=== PATIENT | female | born 1965 | race Caucasian/White ===

== ENCOUNTER 2020-11-14 11:24 | Inpatient (IN) | payer OTHER ==
[2020-11-14] MEDS ORDERED: CLINDAMYCIN-D5W 600 MG/50 ML*** 600 MG/50 ML BAG IV STA (11:51)
[2020-11-14] MEDS ORDERED: MORPHINE SULFATE 4 MG INJ IV ONE (11:51)
[2020-11-14] MEDS ORDERED: Zofran 4 MG/2 ML VIAL IV ONE (11:51)
[2020-11-14 12:06] LABS: Absolute Neutrophil Ct (ANC) 8.09 (1.4-6.9); BASOPHIL % 0.4 % (0.0-0.4); Basophil (Absolute #) 0.04 (0-0.4); Eosinophil (Absolute #) 0 (0-0.5); Hematocrit 44.1 % (35-47); Hemoglobin 14.6 gm/dl (12.0-16.0); Lymphocyte (Absolute #) 1.41 (1.0-4.6); Lymphocytes % 13.6 % (24.0-44.0); Mean Cell Volume 86.1 fl (78-100); Mean Corpuscular Hemoglobin 28.5 pg (26-32); Mean Corpuscular Hgb Concent. 33.1 g/dl (32-36); Monocyte (Absolute #) 0.86 (0.0-1.3); Monocytes % 8.3 % (0.0-12.0); Neutrophil % 77.7 % (36.0-66.0); Platelet Count 292 K/mm3 (150-450); Red Blood Count 5.12 M/mm3 (4.1-5.4); Red Cell Distribution Width 13.4 % (11.5-14.0); White Blood Count 10.4 K/mm3 (4.0-10.5)
[2020-11-14] MEDS ORDERED: Zofran 4 MG/2 ML VIAL ONE (12:12)
[2020-11-14] MEDS ORDERED: MORPHINE SULFATE 4 MG INJ ONE ×2 (12:12→23:49)
[2020-11-14] MEDS ORDERED: CLINDAMYCIN-D5W 600 MG/50 ML*** 600 MG/50 ML BAG IV ONE (12:13)
--- NOTE | 2020-11-14 12:16 | ERPHSYRPT ---
- History of Present Illness Time Seen by Provider: 11/14/20 11:35 Source: patient Exam Limitations: no limitations Patient Subjective Stated Complaint: Pt has a large re-occuring cyst to her pubus region Triage Nursing Assessment: Pt drove self to the ER, tachycardic, rates pain as 10/10, pain to the pubus region, large red cyst with drainage, pulses normal, skin n/w/d Physician History: 55 years old female with history of diabetes mellitus, multiple abscesses, DVT on Eliquis, presented in the ER with chief complaint of right pubic area swelling gradually onset 2 weeks ago with progressive worsening swelling along the right pubic area to labia with associated sharp shooting pain with palpation and multiple heads with mild foul-smelling drainage noted yesterday. Subjective feeling of fever and chills. Patient had I&D done few months ago the same area. Timing/Duration: week(s) (2), gradual onset, worse Quality: burning, painful Severity: moderate Location: genitalia Possible Causes: no cause identified Associated Symptoms: swelling/mass/lumps, No fever Allergies/Adverse Reactions: escitalopram oxalate [From Lexapro] Allergy (Severe, Verified 11/14/20 11:55) Itching gabapentin Allergy (Severe, Verified 11/14/20 11:55) Vomiting adhesive Allergy (Intermediate, Verified 11/14/20 11:55) Blisters hydromorphone HCl [From Dilaudid] Allergy (Verified 11/14/20 11:55) bee stings Allergy (Severe, Uncoded 11/14/20 11:55) Swelling bee stings Home Medications: Promethazine HCl 25 mg [Phenergan 25 mg] 25 mg RC Q6HPRN PRN 08/29/15 [History] Apixaban [Eliquis] 5 mg PO BID 05/06/17 [History] Eletriptan HBr [Relpax] 40 mg PO DAILY PRN PRN 05/06/17 [History] Metformin HCl 500 mg [Glucophage 500 MG] 500 mg PO BIDWM 05/06/17 [History] Potassium Chloride 20 Meq [Klor-Con 20 MEQ] 20 meq PO DAILY 05/06/17 [History] Sumatriptan Succinate 25 mg [Imitrex 25 MG] 25 mg SQ DAILY PRN 05/06/17 [History] Atorvastatin Calcium [Lipitor 40Mg] 40 mg PO DAILY 11/14/20 [History] Bumetanide [Bumex] 2 mg PO BID 11/14/20 [History] Spironolactone 25 mg [Aldactone 25 MG] 25 mg PO DAILY 11/14/20 [History] Hx Tetanus, Diphtheria Vaccination/Date Given: No Hx Influenza Vaccination/Date Given: No Hx Pneumococcal Vaccination/Date Given: Yes Travel Risk - International Travel Have you traveled outside of the country in past 3 weeks: No - Coronavirus Screening Are you exhibiting any of the following symptoms?: No Close contact with a COVID-19 positive Pt in past 14-21 Days: No - Vaccine Status Have you recieved a Covid-19 vaccination: No - Review of Systems Constitutional: No Symptoms Ears, Nose, & Throat: No Symptoms Respiratory: No Symptoms Cardiac: No Symptoms Abdominal/Gastrointestinal: No Symptoms Genitourinary Symptoms: No Symptoms Skin: Cellulitis, Induration, Skin Lesions Neurological: No Symptoms Psychological: No Symptoms Endocrine: No Symptoms Hematologic/Lymphatic: No Symptoms - Past Medical History Pertinent Past Medical History: Yes Neurological History: Peripheral Neuropathy, Seizures ENT History: No Pertinent History Cardiac History: High Cholesterol, Hypertension Respiratory History: Asthma, Pneumonia, Pulmonary Embolism Endocrine Medical History: Diabetes Type II Musculoskeletal History: Arthritis, Fibromyalgia GI Medical History: Hernia History: No Pertinent History Psycho-Social History: Depression Female Reproductive Disorders: Other Other Medical History: . - Past Surgical History Past Surgical History: Yes Neuro Surgical History: No Pertinent History Cardiac: Cardiac Catheterization Respiratory: No Pertinent History Gastrointestinal: Cholecystectomy Genitourinary: No Pertinent History Musculoskeletal: Orthopedic Surgery Female Surgical History: Hysterectomy, Tubal Ligation Other Surgical History: heart cath 2010 was reported to be negative by pt. Filt er placed 2011 yr ago after PE, rhinoplasty and multiple left knee repairs, cyst removed from [facility]. - Social History Smoking Status: Never smoker Exposure to second hand smoke: No Drug Use: none Patient Lives Alone: No - Female History Hx Now: No - Nursing Vital Signs Nursing Vital Signs: Initial Vital Signs Pulse Rate 115 H 11/14/20 11:42 Blood Pressure 135/95 11/14/20 11:42 O2 Sat by Pulse Oximetry 94 L 11/14/20 11:42 Pain Scale Pain Intensity 10 - Physical Exam General Appearance: no apparent distress, alert Eye Exam: eyes nml inspection Ears, Nose, Throat Exam: pharynx normal Neck Exam: normal inspection, supple, full range of motion Respiratory Exam: lungs clear, airway intact Cardiovascular Exam: normal heart sounds, tachycardia Gastrointestinal/Abdomen Exam: soft, normal bowel sounds Pelvic Exam: No normal external exam (7 x 4 cm area of induration swelling right pubic labia majora. Warm tender to touch with fluctuant area in the middle.) Extremity Exam: normal inspection Neurologic Exam: alert, oriented x 3 Skin Exam: normal color SpO2 Interpretation: normal SpO2: 94 O2 Delivery: Room Air Ordered Tests: Active Orders 24 hr Category Date Time Status BLOOD CULTURE Stat Lab 11/14/20 12:00 Ordered CBC W DIFF Stat Lab 11/14/20 12:00 Completed CMP Stat Lab 11/14/20 12:00 Completed Lactic Acid Stat Lab 11/14/20 11:51 Completed Medication Summary Generic Name Dose Route Start Last Admin Trade Name Freq PRN Reason Stop Dose Admin Piperacillin Sod/Tazobactam 100 mls @ 200 mls/hr 11/14/20 13:11 Sod 3.375 gm/ Sodium Chloride IV 11/14/20 13:40 STAT ONE Vancomycin HCl 2 gm in 400 mls @ 133.333 mls/hr 11/14/20 13:11 Vancomycin 2 Gram/400 Ml Bag IV 11/14/20 16:10 STAT ONE Discontinued Medications Generic Name Dose Route Start Last Admin Trade Name Freq PRN Reason Stop Dose Admin Clindamycin HCl/Dextrose 600 mg in 50 mls @ 100 mls/hr 11/14/20 11:51 11/14/20 13:00 Clindamycin-D5w 600 Mg/50 Ml IV 11/14/20 12:20 Infused STAT STA Infusion Clindamycin HCl/Dextrose Confirm 11/14/20 12:13 Clindamycin-D5w 600 Mg/50 Ml Administered 11/14/20 12:14 Dose 600 mg in 50 mls @ ud IV .STK-MED ONE Insulin Human Regular 15 unit 11/14/20 12:54 Humulin R IV 11/14/20 12:55 STAT ONE Morphine Sulfate 4 mg 11/14/20 11:51 11/14/20 12:16 Morphine Sulfate 4 Mg Inj IV 11/14/20 11:52 4 mg STAT ONE Administration Morphine Sulfate Confirm 11/14/20 12:12 Morphine Sulfate 4 Mg Inj Administered 11/14/20 12:13 Dose 4 mg .ROUTE .STK-MED ONE Ondansetron HCl 4 mg 11/14/20 11:51 11/14/20 12:15 Zofran 4 Mg/2 Ml Vial IV 11/14/20 11:52 4 mg STAT ONE Administration Ondansetron HCl Confirm 11/14/20 12:12 Zofran 4 Mg/2 Ml Vial Administered 11/14/20 12:13 Dose 4 mg .ROUTE .STK-MED ONE Lab/Rad Data: Laboratory Result Diagrams 11/14/20 12:00 11/14/20 12:00 Laboratory Results 11/14/20 11/14/20 11/14/20 Range/Units 12:00 12:00 11:51 WBC 10.4 (4.0-10.5) K/mm3 RBC 5.12 (4.1-5.4) M/mm3 Hgb 14.6 (12.0-16.0) gm/dl Hct 44.1 (35-47) % MCV 86.1 (78-100) fl MCH 28.5 (26-32) pg MCHC 33.1 (32-36) g/dl RDW 13.4 (11.5-14.0) % Plt Count 292 (150-450) K/mm3 MPV 11.0 (7.5-11.0) fl Gran % 77.7 H (36.0-66.0) % Eos # (Auto) 0 (0-0.5) Absolute Lymphs (auto) 1.41 (1.0-4.6) Absolute Monos (auto) 0.86 (0.0-1.3) Lymphocytes % 13.6 L (24.0-44.0) % Monocytes % 8.3 (0.0-12.0) % Eosinophils % 0.0 (0.00-5.0) % Basophils % 0.4 (0.0-0.4) % Absolute Granulocytes 8.09 H (1.4-6.9) Basophils # 0.04 (0-0.4) Sodium 128 L (137-145) mmol/L Potassium 4.1 (3.5-5.1) mmol/L Chloride 86 L (98-107) mmol/L Carbon Dioxide 29 (22-30) mmol/L Anion Gap 17.5 H (5-15) MEQ/L BUN 10 (7-17) mg/dL Creatinine 0.82 (0.52-1.04) mg/dL Estimated GFR > 60.0 ML/MIN Glucose 614 H* (74-106) mg/dL Lactic Acid 3.4 H (0.4-2.0) Calcium 10.5 H (8.4-10.2) mg/dL Total Bilirubin 0.70 (0.2-1.3) mg/dL AST 27 (14-36) U/L ALT 30 (0-35) U/L Alkaline Phosphatase 208 H (38-126) U/L Serum Total Protein 7.8 (6.3-8.2) g/dL Albumin 4.4 (3.5-5.0) g/dL - Progress Progress: unchanged, re-examined Progress Note: 11/14/20 13:22 She has a right pubic area abscess, given symptomatic treatment for pain and a dose of antibiotics. Work-up showed normal white count, blood glucose in 600, given IV insulin. Discussed with Dr. Ronak Toro, recommended n.p.o., admission and I&D would be done later either today or tomorrow morning. Discussed with Dr. Powers and patient is admitted. Discussed with : Bubba Yang Will see patient in: hospital (observation) Counseled pt/family regarding: lab results, diagnosis, rad results - Departure Departure Disposition: Observation Clinical Impression: Abscess of pubic region, Hyperglycemia Condition: Stable Critical Care Time: No Referrals: DILEEP SIFUENTES, [employer] TRAFF[employer] COORDINATOR [Primary Care Provider] -
[2020-11-14 12:26] LABS: ALBUMIN 4.4 g/dL (3.5-5.0); ALKALINE PHOSPHATASE 208 U/L (38-126); ANION GAP 17.5 MEQ/L (5-15); BLOOD UREA NITROGEN 10 mg/dL (7-17); CHLORIDE 86 mmol/L (98-107); Calcium 10.5 mg/dL (8.4-10.2); Carbon Dioxide 29 mmol/L (22-30); Creatinine 1 0.82 mg/dL (0.52-1.04); EST GLOMERULAR FILTRATION RATE > 60.0 ML/MIN; Potassium 4.1 mmol/L (3.5-5.1); SGOT/AST 27 U/L (14-36); SGPT/ALT 30 U/L (0-35); SODIUM 128 mmol/L (137-145); Total Protein 7.8 g/dL (6.3-8.2)
[2020-11-14 12:28] LABS: Glucose 614 mg/dL (74-106)
[2020-11-14] MEDS ORDERED: HUMULIN R IV ONE (12:54)
[2020-11-14] MEDS ORDERED: VANCOMYCIN 2 GRAM/400 ML BAG 2 GM/400 ML PIGGYBACK IV ONE ×2 (13:11→14:15)
[2020-11-14] MEDS ORDERED: Zosyn 3.375 GM Vial 3.375 GM in Sodium Chloride 100ML MINI-BAG PLUS 100 ML IV ONE (13:11)
[2020-11-14] MEDS ORDERED: Sodium Chloride 100ML MINI-BAG PLUS 100 ML IV ONE (13:41)
[2020-11-14] MEDS ORDERED: Zosyn 3.375 GM Vial IV ONE (13:41)
[2020-11-14] MEDS ORDERED: HUMULIN R 100 UNIT in Sodium Chloride 0.9% 100 ML BAG 100 ML IV PRN (14:02)
[2020-11-14 14:23] LABS: INFLUENZA A NEGATIVE (NEGATIVE); INFLUENZA B NEGATIVE (NEGATIVE); RESPIRATORY SYNCTIAL VIRUS NEGATIVE (Negative)
[2020-11-14] MEDS ORDERED: TORAdol 30 mg Injection IV ONE (14:25)
[2020-11-14] MEDS ORDERED: TORAdol 30 mg Injection ONE (14:28)
[2020-11-14] MEDS ORDERED: HUMALOG SQ PRN ×2 (17:00→17:02)
[2020-11-14] MEDS ORDERED: VANCOCIN 1 GM VIAL*** 1 GM in Sodium Chloride 0.9% 250 ML 250 ML IV SCH (17:02)
[2020-11-14] MEDS ORDERED: DUONEB 0.5-3 MG/3 ml Neb IH PRN (17:02)
[2020-11-14] MEDS ORDERED: SUMATRIPTAN SUCCINATE 25 MG SQ PRN (17:30)
[2020-11-14] MEDS ORDERED: NON-FORMULARY ITEM (Cholecalciferol (Vitamin D3) [Vitamin D3] 50,000 UNIT) PO SCH (17:30)
[2020-11-14] MEDS ORDERED: PHENERGAN 25 MG PO PRN (17:30)
[2020-11-14] MEDS ORDERED: ELETRIPTAN HBR 40 MG PO PRN (17:30)
[2020-11-14 17:32] LABS: ANION GAP 15.7 MEQ/L (5-15); BLOOD UREA NITROGEN 10 mg/dL (7-17); CHLORIDE 90 mmol/L (98-107); Calcium 9.9 mg/dL (8.4-10.2); Carbon Dioxide 32 mmol/L (22-30); Creatinine 1 0.86 mg/dL (0.52-1.04); EST GLOMERULAR FILTRATION RATE > 60.0 ML/MIN; Glucose 294 mg/dL (74-106); Potassium 3.9 mmol/L (3.5-5.1); SODIUM 133 mmol/L (137-145)
[2020-11-14] MEDS: MORPHINE SULFATE 2 MG INJ IV PRN ×2 (17:40→21:29)
[2020-11-14] MEDS: Zosyn 3.375 GM Vial 3.375 GM in Sodium Chloride 100ML MINI-BAG PLUS 100 ML IV SCH ×2 (17:40→23:18)
[2020-11-14] MEDS: Sodium Chloride 0.9% W/ 20 mEq KCl/LITER 1,000 ML IV SCH (17:40)
[2020-11-14] MEDS: PROTONIX 40 MG IV IV SCH (17:42)
[2020-11-14] MEDS ORDERED: MEDICATION INTERVENTION PO SCH (17:45)
[2020-11-14] MEDS: Aldactone 25 MG PO SCH (18:21)
[2020-11-14] MEDS: Klor Con 10 MEQ PO SCH (18:22)
[2020-11-14] MEDS: BUMEX 1 MG PO SCH (18:22)
[2020-11-14] MEDS: ZOCOR 20MG PO SCH (18:22)
[2020-11-14] MEDS: Cozaar 50 MG PO SCH (18:22)
[2020-11-14] MEDS: Glucophage 500 MG PO SCH (18:22)
[2020-11-14] MEDS: VANCOMYCIN 1 GRAM/200 ML BAG 1 GM/200 ML PIGGYBACK IV SCH (21:09)
[2020-11-14] MEDS: HUMALOG SQ PRN (21:45)
[2020-11-14] MEDS ORDERED: NON-FORMULARY ITEM (Bumetanide [Bumex] 2 MG) PO SCH (22:00)
[2020-11-14] MEDS ORDERED: MORPHINE SULFATE 2 MG INJ IV PRN (23:43)
[2020-11-14] MEDS: MORPHINE SULFATE 4 MG INJ IV PRN (23:55)
[2020-11-15] MEDS: OXYCODONE-ACETAMINOPHEN 10-325 PO PRN ×2 (02:43→20:16)
[2020-11-15] MEDS: Sodium Chloride 0.9% W/ 20 mEq KCl/LITER 1,000 ML IV SCH ×3 (02:43→18:01)
[2020-11-15 05:54] LABS: Absolute Neutrophil Ct (ANC) 7.36 (1.4-6.9); BASOPHIL % 0.4 % (0.0-0.4); Basophil (Absolute #) 0.04 (0-0.4); Eosinophil % 0.2 % (0.00-5.0); Eosinophil (Absolute #) 0.02 (0-0.5); Hematocrit 38.3 % (35-47); Lymphocyte (Absolute #) 1.74 (1.0-4.6); Mean Cell Volume 90.3 fl (78-100); Mean Corpuscular Hemoglobin 28.3 pg (26-32); Mean Corpuscular Hgb Concent. 31.3 g/dl (32-36); Mean Platelet Volume 11.3 fl (7.5-11.0); Monocyte (Absolute #) 1.06 (0.0-1.3); Monocytes % 10.4 % (0.0-12.0); Platelet Count 250 K/mm3 (150-450); Red Blood Count 4.24 M/mm3 (4.1-5.4); Red Cell Distribution Width 13.5 % (11.5-14.0); White Blood Count 10.2 K/mm3 (4.0-10.5)
[2020-11-15 06:19] LABS: ALBUMIN 3.4 g/dL (3.5-5.0); ALKALINE PHOSPHATASE 125 U/L (38-126); BLOOD UREA NITROGEN 11 mg/dL (7-17); CHLORIDE 95 mmol/L (98-107); Calcium 8.6 mg/dL (8.4-10.2); Carbon Dioxide 32 mmol/L (22-30); Creatinine 1 0.83 mg/dL (0.52-1.04); EST GLOMERULAR FILTRATION RATE > 60.0 ML/MIN; Glucose 409 mg/dL (74-106); Potassium 4.1 mmol/L (3.5-5.1); SGOT/AST 27 U/L (14-36); SGPT/ALT 24 U/L (0-35); SODIUM 133 mmol/L (137-145); Total Protein 6.2 g/dL (6.3-8.2)
[2020-11-15] MEDS: Zosyn 3.375 GM Vial 3.375 GM in Sodium Chloride 100ML MINI-BAG PLUS 100 ML IV SCH ×3 (06:42→18:29)
[2020-11-15] MEDS: MORPHINE SULFATE 4 MG INJ IV PRN ×3 (07:13→23:52)
[2020-11-15] MEDS: Glucophage 500 MG PO SCH ×2 (07:14→17:26)
[2020-11-15] MEDS: HUMALOG SQ PRN ×7 (07:29→21:50)
[2020-11-15] MEDS ORDERED: Lactated Ringers 1,000 ML IV ONE (07:33)
[2020-11-15] MEDS ORDERED: Lactated Ringers 1,000 ML IV SCH (08:00)
[2020-11-15] MEDS: Aldactone 25 MG PO SCH (08:55)
[2020-11-15] MEDS: Cozaar 50 MG PO SCH (08:55)
[2020-11-15] MEDS: BUMEX 1 MG PO SCH ×2 (08:55→17:26)
[2020-11-15] MEDS: PROTONIX 40 MG IV IV SCH (09:06)
[2020-11-15] MEDS: ZOCOR 20MG PO SCH (09:06)
[2020-11-15] MEDS: Klor Con 10 MEQ PO SCH (09:07)
[2020-11-15] MEDS: VANCOMYCIN 1 GRAM/200 ML BAG 1 GM/200 ML PIGGYBACK IV SCH ×2 (09:10→21:39)
[2020-11-15] MEDS ORDERED: NON-FORMULARY ITEM (Losartan Potassium [Losartan Potassium] 25 MG) PO SCH (10:00)
[2020-11-15] MEDS ORDERED: LIPITOR 40MG PO SCH (10:00)
[2020-11-15] MEDS ORDERED: VITAMIN D2 PO SCH (10:00)
[2020-11-15] MEDS ORDERED: NON-FORMULARY ITEM (Potassium Chloride 20 Meq [Klor-Con 20 Meq] 20 MEQ) PO SCH (10:00)
--- NOTE | 2020-11-15 15:06 | PCM.HP ---
History of Present Illness - Chief Complaint Chief Complaint: ABCESS R LABIA, RECURRENT History of Present Illness: is a 55 year old female. Medications & Allergies Home Medications: Home Medication List Promethazine HCl 25 mg [Phenergan 25 mg] 25 mg RC Q6HPRN PRN 08/29/15 [History Confirmed 11/14/20] Apixaban [Eliquis] 5 mg PO BID 05/06/17 [History Confirmed 11/14/20] Eletriptan HBr [Relpax] 40 mg PO DAILY PRN PRN 05/06/17 [History Confirmed 11/14/20] Metformin HCl 500 mg [Glucophage 500 MG] 500 mg PO BIDWM 05/06/17 [History Confirmed 11/14/20] Potassium Chloride 20 Meq [Klor-Con 20 MEQ] 20 meq PO DAILY 05/06/17 [History Confirmed 11/14/20] Sumatriptan Succinate 25 mg [Imitrex 25 MG] 25 mg SQ DAILY PRN 05/06/17 [History Confirmed 11/14/20] Atorvastatin Calcium [Lipitor 40Mg] 40 mg PO DAILY 11/14/20 [History Confirmed 11/14/20] Bumetanide [Bumex] 2 mg PO BID 11/14/20 [History Confirmed 11/14/20] Cholecalciferol (Vitamin D3) [Vitamin D3] 50,000 unit PO WEEKLY 11/14/20 [History Confirmed 11/14/20] Losartan Potassium 25 mg PO DAILY 11/14/20 [History Confirmed 11/14/20] Spironolactone 25 mg [Aldactone 25 MG] 25 mg PO DAILY 11/14/20 [History Confirmed 11/14/20] Allergies/Adverse Reactions: Allergies Allergy/AdvReac Type Severity Reaction Status Date / Time escitalopram oxalate Allergy Severe Itching Verified 11/14/20 11:55 [From Lexapro] gabapentin Allergy Severe Vomiting Verified 11/14/20 11:55 adhesive Allergy Intermediate Blisters Verified 11/14/20 11:55 lisinopril Allergy Intermediate Skin Verified 11/14/20 17:08 Irritation hydromorphone HCl Allergy Verified 11/14/20 11:55 [From Dilaudid] bee stings Allergy Severe Swelling Uncoded 11/14/20 11:55 - Past Medical History Past Medical History: Yes Neurological History: Migraines, Other ENT History: No Pertinent History Cardiac History: High Cholesterol, Hypertension Respiratory History: COPD, Pulmonary Embolism Endocrine Medical History: Diabetes Type II Musculoskelatal History: Arthritis GI Medical History: Gallbladder Disease History: No Pertinent History Pyscho-Social History: Anxiety, Depression Reproductive Disorders: Abnormal Uterine Bleeding, Fibroids Comment: . - Female History Are you now?: No - Past Surgical History Past Surgical History: Yes Neuro Surgical History: No Pertinent History Cardiac History: Cardiac Catheterization Respiratory Surgery: No Pertinent History GI Surgical History: Cholecystectomy Genitourinary Surgical Hx: No Pertinent History Musculskeletal Surgical Hx: No Pertinent History Female Surgical History: Hysterectomy Other Surgical History: heart cath 2010 was reported to be negative by pt. 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 - Social History Smoking Status: Never smoker Exposure to second hand smoke: No Alcohol: None Drug Use: none - Physical Exam Vital Signs: Vital Signs - 24 hr Temp Pulse Resp BP Pulse Ox 11/15/20 14:08 96.0 F 94 H 20 95/66 99 11/15/20 12:00 96.0 F 94 H 20 95/66 99 11/15/20 08:00 98.1 F 101 H 23 88/63 97 11/15/20 04:00 97.0 F 97 H 15 98/63 98 11/15/20 01:29 98.5 F 100 H 15 101/70 98 11/15/20 00:44 98.5 F 100 H 15 101/70 98 11/14/20 23:36 98.5 F 100 H 15 101/70 98 11/14/20 20:58 96 11/14/20 20:00 98.4 F 103 H 20 118/74 93 L 11/14/20 17:31 96.4 F 100 H 19 122/63 93 L 11/14/20 16:13 89 107/88 98 Results - Labs Lab/Micro Results: Lab Results-Last 24 Hours 11/14/20 11/14/20 11/14/20 Range/Units 12:04 15:01 17:16 WBC (4.0-10.5) K/mm3 RBC (4.1-5.4) M/mm3 Hgb (12.0-16.0) gm/dl Hct (35-47) % MCV (78-100) fl MCH (26-32) pg MCHC (32-36) g/dl RDW (11.5-14.0) % Plt Count (150-450) K/mm3 MPV (7.5-11.0) fl Gran % (36.0-66.0) % Eos # (Auto) (0-0.5) Absolute Lymphs (auto) (1.0-4.6) Absolute Monos (auto) (0.0-1.3) Lymphocytes % (24.0-44.0) % Monocytes % (0.0-12.0) % Eosinophils % (0.00-5.0) % Basophils % (0.0-0.4) % Absolute Granulocytes (1.4-6.9) Basophils # (0-0.4) Sodium (137-145) mmol/L Potassium (3.5-5.1) mmol/L Chloride (98-107) mmol/L Carbon Dioxide (22-30) mmol/L Anion Gap (5-15) MEQ/L BUN (7-17) mg/dL Creatinine (0.52-1.04) mg/dL Estimated GFR ML/MIN Glucose (74-106) mg/dL POC Glucometer 305 H (74 to 106) mg/dL Hemoglobin A1c > 14.00 H (4.5-6.0) % Lactic Acid 3.3 H (0.4-2.0) Calcium (8.4-10.2) mg/dL Total Bilirubin (0.2-1.3) mg/dL AST (14-36) U/L ALT (0-35) U/L Alkaline Phosphatase (38-126) U/L Serum Total Protein (6.3-8.2) g/dL Albumin (3.5-5.0) g/dL 11/14/20 11/14/20 11/15/20 Range/Units 17:20 21:35 04:20 WBC 10.2 (4.0-10.5) K/mm3 RBC 4.24 (4.1-5.4) M/mm3 Hgb 12.0 (12.0-16.0) gm/dl Hct 38.3 (35-47) % MCV 90.3 (78-100) fl MCH 28.3 (26-32) pg MCHC 31.3 L (32-36) g/dl RDW 13.5 (11.5-14.0) % Plt Count 250 (150-450) K/mm3 MPV 11.3 H (7.5-11.0) fl Gran % 72.0 H (36.0-66.0) % Eos # (Auto) 0.02 (0-0.5) Absolute Lymphs (auto) 1.74 (1.0-4.6) Absolute Monos (auto) 1.06 (0.0-1.3) Lymphocytes % 17.0 L (24.0-44.0) % Monocytes % 10.4 (0.0-12.0) % Eosinophils % 0.2 (0.00-5.0) % Basophils % 0.4 (0.0-0.4) % Absolute Granulocytes 7.36 H (1.4-6.9) Basophils # 0.04 (0-0.4) Sodium 133 L (137-145) mmol/L Potassium 3.9 (3.5-5.1) mmol/L Chloride 90 L (98-107) mmol/L Carbon Dioxide 32 H (22-30) mmol/L Anion Gap 15.7 H (5-15) MEQ/L BUN 10 (7-17) mg/dL Creatinine 0.86 (0.52-1.04) mg/dL Estimated GFR > 60.0 ML/MIN Glucose 294 H (74-106) mg/dL POC Glucometer 464 H (74 to 106) mg/dL Hemoglobin A1c (4.5-6.0) % Lactic Acid (0.4-2.0) Calcium 9.9 (8.4-10.2) mg/dL Total Bilirubin (0.2-1.3) mg/dL AST (14-36) U/L ALT (0-35) U/L Alkaline Phosphatase (38-126) U/L Serum Total Protein (6.3-8.2) g/dL Albumin (3.5-5.0) g/dL 11/15/20 11/15/20 11/15/20 Range/Units 04:20 05:20 07:26 WBC (4.0-10.5) K/mm3 RBC (4.1-5.4) M/mm3 Hgb (12.0-16.0) gm/dl Hct (35-47) % MCV (78-100) fl MCH (26-32) pg MCHC (32-36) g/dl RDW (11.5-14.0) % Plt Count (150-450) K/mm3 MPV (7.5-11.0) fl Gran % (36.0-66.0) % Eos # (Auto) (0-0.5) Absolute Lymphs (auto) (1.0-4.6) Absolute Monos (auto) (0.0-1.3) Lymphocytes % (24.0-44.0) % Monocytes % (0.0-12.0) % Eosinophils % (0.00-5.0) % Basophils % (0.0-0.4) % Absolute Granulocytes (1.4-6.9) Basophils # (0-0.4) Sodium 133 L (137-145) mmol/L Potassium 4.1 (3.5-5.1) mmol/L Chloride 95 L (98-107) mmol/L Carbon Dioxide 32 H (22-30) mmol/L Anion Gap 11.0 (5-15) MEQ/L BUN 11 (7-17) mg/dL Creatinine 0.83 (0.52-1.04) mg/dL Estimated GFR > 60.0 ML/MIN Glucose 409 H (74-106) mg/dL POC Glucometer 432 H (74 to 106) mg/dL Hemoglobin A1c (4.5-6.0) % Lactic Acid 1.2 (0.4-2.0) Calcium 8.6 (8.4-10.2) mg/dL Total Bilirubin 0.50 (0.2-1.3) mg/dL AST 27 (14-36) U/L ALT 24 (0-35) U/L Alkaline Phosphatase 125 (38-126) U/L Serum Total Protein 6.2 L (6.3-8.2) g/dL Albumin 3.4 L (3.5-5.0) g/dL 11/15/20 11/15/20 11/15/20 Range/Units 08:02 10:18 11:09 WBC (4.0-10.5) K/mm3 RBC (4.1-5.4) M/mm3 Hgb (12.0-16.0) gm/dl Hct (35-47) % MCV (78-100) fl MCH (26-32) pg MCHC (32-36) g/dl RDW (11.5-14.0) % Plt Count (150-450) K/mm3 MPV (7.5-11.0) fl Gran % (36.0-66.0) % Eos # (Auto) (0-0.5) Absolute Lymphs (auto) (1.0-4.6) Absolute Monos (auto) (0.0-1.3) Lymphocytes % (24.0-44.0) % Monocytes % (0.0-12.0) % Eosinophils % (0.00-5.0) % Basophils % (0.0-0.4) % Absolute Granulocytes (1.4-6.9) Basophils # (0-0.4) Sodium (137-145) mmol/L Potassium (3.5-5.1) mmol/L Chloride (98-107) mmol/L Carbon Dioxide (22-30) mmol/L Anion Gap (5-15) MEQ/L BUN (7-17) mg/dL Creatinine (0.52-1.04) mg/dL Estimated GFR ML/MIN Glucose (74-106) mg/dL POC Glucometer 414 H 393 H 341 H (74 to 106) mg/dL Hemoglobin A1c (4.5-6.0) % Lactic Acid (0.4-2.0) Calcium (8.4-10.2) mg/dL Total Bilirubin (0.2-1.3) mg/dL AST (14-36) U/L ALT (0-35) U/L Alkaline Phosphatase (38-126) U/L Serum Total Protein (6.3-8.2) g/dL Albumin (3.5-5.0) g/dL 11/15/20 Range/Units 13:05 WBC (4.0-10.5) K/mm3 RBC (4.1-5.4) M/mm3 Hgb (12.0-16.0) gm/dl Hct (35-47) % MCV (78-100) fl MCH (26-32) pg MCHC (32-36) g/dl RDW (11.5-14.0) % Plt Count (150-450) K/mm3 MPV (7.5-11.0) fl Gran % (36.0-66.0) % Eos # (Auto) (0-0.5) Absolute Lymphs (auto) (1.0-4.6) Absolute Monos (auto) (0.0-1.3) Lymphocytes % (24.0-44.0) % Monocytes % (0.0-12.0) % Eosinophils % (0.00-5.0) % Basophils % (0.0-0.4) % Absolute Granulocytes (1.4-6.9) Basophils # (0-0.4) Sodium (137-145) mmol/L Potassium (3.5-5.1) mmol/L Chloride (98-107) mmol/L Carbon Dioxide (22-30) mmol/L Anion Gap (5-15) MEQ/L BUN (7-17) mg/dL Creatinine (0.52-1.04) mg/dL Estimated GFR ML/MIN Glucose (74-106) mg/dL POC Glucometer 278 H (74 to 106) mg/dL Hemoglobin A1c (4.5-6.0) % Lactic Acid (0.4-2.0) Calcium (8.4-10.2) mg/dL Total Bilirubin (0.2-1.3) mg/dL AST (14-36) U/L ALT (0-35) U/L Alkaline Phosphatase (38-126) U/L Serum Total Protein (6.3-8.2) g/dL Albumin (3.5-5.0) g/dL Accuchecks Date 11/15/20 Date 11/15/20 Time 11:15 Time 10:19 - Other Procedures and Tests Respiratory Therapy 11/14/20 17:02 Oxygen Nasal Cannula 2 lpm
[2020-11-15] MEDS ORDERED: TORAdol 30 mg Injection ONE (16:10)
[2020-11-15] MEDS ORDERED: Zemuron 100 MG/10 ML ONE (16:10)
[2020-11-15] MEDS ORDERED: SUBLIMAZE 100 MCG/2 ML ONE ×2 (16:10→17:49)
[2020-11-15] MEDS ORDERED: Decadron 4 MG INJ ONE (16:10)
[2020-11-15] MEDS ORDERED: Zofran 4 MG/2 ML VIAL ONE (16:10)
[2020-11-15] MEDS ORDERED: DIPRIVAN 200 MG/20 ML IV ONE (16:10)
[2020-11-15] MEDS ORDERED: BRIDION 200MG/2ML IV ONE (16:10)
[2020-11-15] MEDS ORDERED: Xylocaine-Mpf 2% 5 Ml Vial ONE (16:10)
[2020-11-15] MEDS ORDERED: PHENYLEPHRINE HCL ONE (16:30)
[2020-11-15] MEDS ORDERED: MORPHINE SULFATE 10 MG/ML ONE (17:36)
[2020-11-15] MEDS: Sodium Chloride 0.9% 1000 ML 1,000 ML IV SCH (18:28)
[2020-11-15] MEDS: BENADRYL 25 MG CAPSULE PO PRN (23:52)
[2020-11-16] MEDS: Zosyn 3.375 GM Vial 3.375 GM in Sodium Chloride 100ML MINI-BAG PLUS 100 ML IV SCH ×4 (00:15→19:01)
[2020-11-16] MEDS: HUMALOG SQ PRN ×6 (00:18→22:40)
[2020-11-16] MEDS: MORPHINE SULFATE 4 MG INJ IV PRN ×4 (04:02→20:07)
[2020-11-16] MEDS: BENADRYL 25 MG CAPSULE PO PRN (04:18)
[2020-11-16] MEDS: Glucophage 500 MG PO SCH ×2 (08:09→18:30)
[2020-11-16] MEDS ORDERED: TROUGH DRUG LEVELS IJ ONE (09:30)
[2020-11-16] MEDS: ZOCOR 20MG PO SCH (10:43)
[2020-11-16] MEDS: PROTONIX 40 MG IV IV SCH (10:43)
[2020-11-16] MEDS: BUMEX 1 MG PO SCH ×2 (10:44→18:30)
[2020-11-16] MEDS: Aldactone 25 MG PO SCH (10:45)
[2020-11-16] MEDS: ELIQUIS 2.5 MG TABLET PO SCH ×2 (10:45→21:53)
[2020-11-16] MEDS: Klor Con 10 MEQ PO SCH (10:55)
[2020-11-16] MEDS: Cozaar 50 MG PO SCH (10:55)
[2020-11-16] MEDS: VANCOMYCIN 1 GRAM/200 ML BAG 1 GM/200 ML PIGGYBACK IV SCH ×2 (11:04→21:53)
[2020-11-16] MEDS: NORCO 7.5/325 MG TAB PO PRN ×2 (12:14→18:35)
[2020-11-16] MEDS: Sodium Chloride 0.9% 1000 ML 1,000 ML IV SCH (19:53)
[2020-11-17] MEDS: Zosyn 3.375 GM Vial 3.375 GM in Sodium Chloride 100ML MINI-BAG PLUS 100 ML IV SCH ×3 (00:12→13:15)
[2020-11-17] MEDS: NORCO 7.5/325 MG TAB PO PRN ×3 (00:18→17:21)
[2020-11-17] MEDS: MORPHINE SULFATE 4 MG INJ IV PRN ×3 (04:03→19:30)
[2020-11-17] MEDS: Zofran 4 MG/2 ML VIAL IV PRN (04:04)
[2020-11-17] MEDS ORDERED: Zosyn 3.375 GM Vial IV ONE (06:32)
[2020-11-17] MEDS ORDERED: Sodium Chloride 100ML MINI-BAG PLUS 100 ML IV ONE (06:33)
[2020-11-17 06:49] LABS: Hematocrit 39.3 % (35-47); Hemoglobin 12.2 gm/dl (12.0-16.0); Mean Cell Volume 91.6 fl (78-100); Mean Corpuscular Hemoglobin 28.4 pg (26-32); Mean Platelet Volume 10.9 fl (7.5-11.0); Platelet Count 253 K/mm3 (150-450); Red Blood Count 4.29 M/mm3 (4.1-5.4); Red Cell Distribution Width 13.7 % (11.5-14.0); White Blood Count 7.2 K/mm3 (4.0-10.5)
[2020-11-17 06:53] LABS: ANION GAP 9.1 MEQ/L (5-15); BLOOD UREA NITROGEN 12 mg/dL (7-17); CHLORIDE 93 mmol/L (98-107); Calcium 8.4 mg/dL (8.4-10.2); Carbon Dioxide 36 mmol/L (22-30); Creatinine 1 0.74 mg/dL (0.52-1.04); EST GLOMERULAR FILTRATION RATE > 60.0 ML/MIN; Glucose 292 mg/dL (74-106); Potassium 3.4 mmol/L (3.5-5.1); SODIUM 135 mmol/L (137-145)
[2020-11-17] MEDS: Glucophage 500 MG PO SCH ×2 (08:30→17:21)
[2020-11-17] MEDS: HUMALOG SQ PRN ×4 (08:30→21:25)
[2020-11-17] MEDS: VANCOMYCIN 1 GRAM/200 ML BAG 1 GM/200 ML PIGGYBACK IV SCH ×2 (10:59→21:26)
[2020-11-17] MEDS: PROTONIX 40 MG IV IV SCH (10:59)
[2020-11-17] MEDS: ELIQUIS 2.5 MG TABLET PO SCH ×2 (10:59→21:26)
[2020-11-17] MEDS: ZOCOR 20MG PO SCH (10:59)
[2020-11-17] MEDS: BUMEX 1 MG PO SCH ×2 (10:59→17:21)
[2020-11-17] MEDS: Aldactone 25 MG PO SCH (11:00)
[2020-11-17] MEDS: Klor Con 10 MEQ PO SCH (11:00)
[2020-11-17] MEDS: Cozaar 50 MG PO SCH (11:01)
[2020-11-17] MEDS: Sodium Chloride 0.9% 1000 ML 1,000 ML IV SCH ×3 (20:13→20:16)
[2020-11-18] MEDS: MORPHINE SULFATE 4 MG INJ IV PRN ×2 (04:59→21:53)
[2020-11-18 05:56] LABS: ANION GAP 9.1 MEQ/L (5-15); BLOOD UREA NITROGEN 10 mg/dL (7-17); CHLORIDE 89 mmol/L (98-107); Calcium 8.5 mg/dL (8.4-10.2); Carbon Dioxide 39 mmol/L (22-30); Creatinine 1 0.77 mg/dL (0.52-1.04); EST GLOMERULAR FILTRATION RATE > 60.0 ML/MIN; Glucose 299 mg/dL (74-106); Potassium 3.1 mmol/L (3.5-5.1); SODIUM 134 mmol/L (137-145)
[2020-11-18 06:00] LABS: Hematocrit 40.2 % (35-47); Hemoglobin 12.6 gm/dl (12.0-16.0); Mean Cell Volume 90.3 fl (78-100); Mean Corpuscular Hemoglobin 28.3 pg (26-32); Mean Corpuscular Hgb Concent. 31.3 g/dl (32-36); Mean Platelet Volume 10.9 fl (7.5-11.0); Platelet Count 274 K/mm3 (150-450); Red Blood Count 4.45 M/mm3 (4.1-5.4); Red Cell Distribution Width 13.6 % (11.5-14.0); White Blood Count 5.6 K/mm3 (4.0-10.5)
[2020-11-18] MEDS: NORCO 7.5/325 MG TAB PO PRN ×2 (08:23→19:37)
[2020-11-18] MEDS: Glucophage 500 MG PO SCH ×2 (08:23→19:39)
[2020-11-18] MEDS: HUMALOG SQ PRN ×4 (08:23→21:51)
--- NOTE | 2020-11-18 08:39 | CONS ---
CONSULT DATE: 11/15/2020 REASON FOR CONSULT: Right groin abscess. HISTORY: The patient is a 55 year-old female well known to me, uncontrolled diabetic, history of multiple I&D's, has seen endocrinology and has changed her diabetic management. She is not on insulin and they are having some difficulty with medications and symptoms but regardless of that had one week of worsening pain to the right groin. She also endures a spot at the anus that has been bothering her for similar time. She presented to the emergency department tachycardic with hyperglycemia and was admitted and started on insulin drip, antibiotics. The pain is similar. She does have some drainage from the wound but there is continued fluctuance. REVIEW OF SYSTEMS: Twelve point review of systems by chart review is negative. PAST MEDICAL HISTORY: Peripheral neuropathy, hyperlipidemia, hypertension, asthma, pulmonary embolism with coagulopathy on anticoagulation, diabetes type II, arthritis, fibromyalgia. PAST SURGICAL HISTORY: Hysterectomy, tubal ligation. Multiple incision and drainage. Heart cath in 2010. Inferior vena cava filter 2010. Rhinoplasty. Left knee surgery. PHYSICAL EXAMINATION: Afebrile. Vitals normal. No acute distress. CHEST: Nonlabored respirations. HEART: Regular rate and rhythm. ABDOMEN: Obese, nondistended, soft, nontender to palpation. The right groin just lateral to the labia there is a fluctuance extending approximately above the groin crease, maybe an 8 cm area. There is some active drainage. However there is gross fluctuance. RECTAL: There is perianal abscesses about 1 to 2 cm each with some induration and fluctuance. EXTREMITIES: No peripheral edema. NEURO: [place]son Coma Scale (GCS) 15. SKIN: Warm and dry. LAB DATA AND TESTS: CBC, BMP reviewed. Hyperglycemia with glucose over 400. Elevated anion gap on admission. ASSESSMENT AND PLAN: A 55 year-old female poorly controlled diabetic with right groin abscess and perianal abscesses going to the operating room for incision and drainage. Medicine is managing her diabetes. Plan is operative incision and drainage and includes supportive care.
[2020-11-18] MEDS: Zofran 4 MG/2 ML VIAL IV PRN (08:52)
--- NOTE | 2020-11-18 08:56 | OP ---
SURGERY DATE/TIME: 11/15/2020 1608 PREOPERATIVE DIAGNOSIS: Right groin and perianal abscesses. POSTOPERATIVE DIAGNOSIS: Right groin and perianal abscesses. PROCEDURES: 1) Incision and drainage of right groin mons pubis abscesses measuring 7 x 5 x 2 cm and 3 x 1 x 1 cm and 1 x 1 x 1 cm. 2) Incision of perianal abscesses measuring 1 x 1 x 1 cm. SURGEON: Dl Toro M.D. ANESTHESIA: General. ESTIMATED BLOOD LOSS: 25. PATIENT CONDITION: Stable. COMPLICATIONS: None. SPECIMENS: Swab for culture of right groin abscesses. HISTORY: The patient is a 55 year-old female poorly controlled diabetic presents with one week history of right groin pain and hyperglycemia, admitted and started on insulin drip, antibiotics and consented for surgery. Discussion with patient risk of infection, bleeding, wound complications, difficulty healing wounds and she elected to proceed. FINDINGS: Abscesses. DESCRIPTION OF PROCEDURE: General anesthesia was induced. She was placed in lithotomy position, routinely prepped and draped. Time out was performed. She was on scheduled antibiotics on the floor. The right groin above the groin crease on the mons pubis there is a 7 x 5 x 2 cm area inferiorly that has an opening. This was opened and the abscess cavity digitized. The cavity is 7 cm craniocaudal, 5 cm wide and 2 cm deep. A swab was taken for culture. This did not communicate with second and third area which are superior. The superior area is 3 cm long by 1 cm wide by 1 cm deep, this was opened. There is also a 1 x 1 x 1 cm area between the two that was opened. All the cavities were curetted out, irrigated. There was good hemostasis. A Kadie drain was placed in the larger abscess cavity using a counter incision. The anus is then examined. External exam shows just at the 5:00 left posterior position there is an opening with about a 1 cm fluctuance. This was explored with hemostat. It was about 1 x 1 x 1 cm wide. This was opened up to be 1 cm wide. There is no fistula. Packing was applied to the right groin wound. Clean dressings applied. All counts were correct. The patient tolerated the procedure well.
[2020-11-18] MEDS: VANCOMYCIN 1 GRAM/200 ML BAG 1 GM/200 ML PIGGYBACK IV SCH ×2 (10:19→21:52)
[2020-11-18] MEDS: BUMEX 1 MG PO SCH ×2 (10:19→19:39)
[2020-11-18] MEDS: PROTONIX 40 MG IV IV SCH (10:19)
[2020-11-18] MEDS: Aldactone 25 MG PO SCH (10:19)
[2020-11-18] MEDS: Klor Con 10 MEQ PO SCH (10:20)
[2020-11-18] MEDS: ELIQUIS 2.5 MG TABLET PO SCH ×2 (10:20→21:53)
[2020-11-18] MEDS: Cozaar 50 MG PO SCH (10:20)
[2020-11-18] MEDS: ZOCOR 20MG PO SCH (10:20)
--- NOTE | 2020-11-18 17:26 | PCM.NOTE ---
Date and Time: 11/18/20 1716 Subjective Assessment: Patient c/o episodes of nausea and abdominal cramping and headache. States this happened at home also from her meds,thinks this was due to Metformin.Was on Lispro and Basalgar from [employer] per outpatient pharmacist. Patient just had glucose 426 after a lunch of Beef and noodles and half a grilled cheese sandwich. FBS has been 200s but has not been on basal insulin this stay. OBJECTIVE DATA Vital Signs: Vital Signs - 24 hr Temp Pulse Resp BP Pulse Ox 11/18/20 16:00 96.9 F 121 H 18 109/77 96 11/18/20 11:32 97.2 F 96 H 18 132/72 93 L 11/18/20 08:00 97.1 F 91 H 18 136/77 91 L 11/18/20 04:00 98.2 F 97 H 18 126/68 94 L 11/18/20 00:02 97.7 F 94 H 21 117/70 93 L 11/17/20 19:50 97.5 F 91 H 18 114/59 93 L Pain Assessment - Last Documented Pain Intensity 8 Pain Scale Used 0-10 Pain Scale Intake and Output: Intake & Output 11/16/20 11/17/20 11/18/20 11/19/20 11:59 11:59 11:59 11:59 Intake Total 880 3636 1330 Output Total 600 Balance 280 3636 1330 Weight 109.76 kg 109.76 kg Lab Results: Lab Results-Last 24 Hours 11/17/20 11/18/20 11/18/20 Range/Units 20:57 04:25 04:25 WBC 5.6 (4.0-10.5) K/mm3 RBC 4.45 (4.1-5.4) M/mm3 Hgb 12.6 (12.0-16.0) gm/dl Hct 40.2 (35-47) % MCV 90.3 (78-100) fl MCH 28.3 (26-32) pg MCHC 31.3 L (32-36) g/dl RDW 13.6 (11.5-14.0) % Plt Count 274 (150-450) K/mm3 MPV 10.9 (7.5-11.0) fl Sodium 134 L (137-145) mmol/L Potassium 3.1 L (3.5-5.1) mmol/L Chloride 89 L (98-107) mmol/L Carbon Dioxide 39 H (22-30) mmol/L Anion Gap 9.1 (5-15) MEQ/L BUN 10 (7-17) mg/dL Creatinine 0.77 (0.52-1.04) mg/dL Estimated GFR > 60.0 ML/MIN Glucose 299 H (74-106) mg/dL POC Glucometer 279 H (74 to 106) mg/dL Calcium 8.5 (8.4-10.2) mg/dL 11/18/20 11/18/20 11/18/20 Range/Units 07:23 11:15 16:52 WBC (4.0-10.5) K/mm3 RBC (4.1-5.4) M/mm3 Hgb (12.0-16.0) gm/dl Hct (35-47) % MCV (78-100) fl MCH (26-32) pg MCHC (32-36) g/dl RDW (11.5-14.0) % Plt Count (150-450) K/mm3 MPV (7.5-11.0) fl Sodium (137-145) mmol/L Potassium (3.5-5.1) mmol/L Chloride (98-107) mmol/L Carbon Dioxide (22-30) mmol/L Anion Gap (5-15) MEQ/L BUN (7-17) mg/dL Creatinine (0.52-1.04) mg/dL Estimated GFR ML/MIN Glucose (74-106) mg/dL POC Glucometer TNP 273 H 426 H (74 to 106) mg/dL Calcium (8.4-10.2) mg/dL Multi-Disciplinary Progress Notes: Multi-Disciplinary Progress Notes 11/18/20 11:18 Case Management Note by Rosa Haines PATIENT CONTINUES TO DENY ANY NEW NEEDS REGARDING DC AT THIS TIME. SHE CONTINUES TO REFUSE THE NEED FOR HHC. SHE REPORTS SHE HAS REQUIRED DRESSING CHANGES IN THE PAST AND FEELS CONFIDENT THAT HE CAN DO THE DRESSING CHANGES AT TIME OF DC Initialized on 11/18/20 11:18 - END OF NOTE Assessment/Plan (1) Abscess of pubic region Current Visit: Yes Status: Acute Assessment & Plan: post op day 3 ,improved Code(s): L02.219 - CUTANEOUS ABSCESS OF TRUNK, UNSPECIFIED (2) Hyperglycemia due to diabetes mellitus Current Visit: Yes Status: Acute Assessment & Plan: Is eating too many carbs,need to count carbs-has handout. Needs to increase protein at each meal, can bring in. Start Lantus 15 units q HS. Code(s): E11.65 - TYPE 2 DIABETES MELLITUS WITH HYPERGLYCEMIA (3) Abdominal cramping Current Visit: Yes Status: Acute Assessment & Plan: no diarrhea but episodic generalized abd cramping Code(s): R10.9 - UNSPECIFIED ABDOMINAL PAIN (4) Hypokalemia Current Visit: Yes Status: Acute Assessment & Plan: will give Klyte 25meq x 1 dose only,monitor lab Code(s): E87.6 - HYPOKALEMIA
[2020-11-18] MEDS ORDERED: K-LYTE 25 MEQ PO ONE (17:27)
[2020-11-18] MEDS ORDERED: Lantus Insulin SQ SCH (22:00)
[2020-11-19] MEDS: NORCO 7.5/325 MG TAB PO PRN ×2 (01:49→07:52)
[2020-11-19 05:37] LABS: Absolute Neutrophil Ct (ANC) 2.86 (1.4-6.9); BASOPHIL % 0.3 % (0.0-0.4); Basophil (Absolute #) 0.02 (0-0.4); Eosinophil % 0.3 % (0.00-5.0); Eosinophil (Absolute #) 0.02 (0-0.5); Hematocrit 39.5 % (35-47); Hemoglobin 12.2 gm/dl (12.0-16.0); Lymphocyte (Absolute #) 2.88 (1.0-4.6); Lymphocytes % 44.4 % (24.0-44.0); Mean Corpuscular Hemoglobin 27.8 pg (26-32); Mean Corpuscular Hgb Concent. 30.9 g/dl (32-36); Mean Platelet Volume 10.8 fl (7.5-11.0); Monocyte (Absolute #) 0.71 (0.0-1.3); Monocytes % 10.9 % (0.0-12.0); Neutrophil % 44.1 % (36.0-66.0); Platelet Count 261 K/mm3 (150-450); Red Blood Count 4.39 M/mm3 (4.1-5.4); Red Cell Distribution Width 13.6 % (11.5-14.0); White Blood Count 6.5 K/mm3 (4.0-10.5)
[2020-11-19] MEDS: MORPHINE SULFATE 4 MG INJ IV PRN (05:59)
[2020-11-19 06:10] LABS: ALBUMIN 3.3 g/dL (3.5-5.0); ALKALINE PHOSPHATASE 113 U/L (38-126); ANION GAP 9.6 MEQ/L (5-15); BLOOD UREA NITROGEN 13 mg/dL (7-17); CHLORIDE 89 mmol/L (98-107); Calcium 8.8 mg/dL (8.4-10.2); Carbon Dioxide 39 mmol/L (22-30); Creatinine 1 0.62 mg/dL (0.52-1.04); EST GLOMERULAR FILTRATION RATE > 60.0 ML/MIN; Glucose 254 mg/dL (74-106); SGOT/AST 38 U/L (14-36); SGPT/ALT 40 U/L (0-35); SODIUM 135 mmol/L (137-145); Total Protein 6.1 g/dL (6.3-8.2)
[2020-11-19] MEDS ORDERED: K-LYTE 25 MEQ PO ONE ×3 (06:48→17:30)
[2020-11-19] MEDS: HUMALOG SQ PRN ×3 (07:49→16:45)
[2020-11-19] MEDS: Klor Con 10 MEQ PO SCH (09:24)
[2020-11-19] MEDS: Cozaar 50 MG PO SCH (09:24)
[2020-11-19] MEDS: ELIQUIS 2.5 MG TABLET PO SCH (09:24)
[2020-11-19] MEDS: Aldactone 25 MG PO SCH (09:24)
[2020-11-19] MEDS: ZOCOR 20MG PO SCH (09:24)
[2020-11-19] MEDS: PROTONIX 40 MG IV IV SCH (09:25)
[2020-11-19] MEDS: VANCOMYCIN 1 GRAM/200 ML BAG 1 GM/200 ML PIGGYBACK IV SCH (09:27)
[2020-11-19] MEDS: Zofran 4 MG/2 ML VIAL IV PRN (09:35)
[2020-11-19] MEDS ORDERED: BUMEX 1 MG PO SCH (10:00)
[2020-11-19 16:08] VITALS: BP 119/69; PULSE 90; O2SAT 94
--- NOTE | 2020-11-19 17:18 | PCM.DCORD ---
- Discharge Disposition: Home, Self-Care Condition: Stable Prescriptions: New Sulfamethoxazole/Trimethoprim [Bactrim Ds Tablet] 1 each PO BID #28 tablet Bumetanide 1 mg [Bumex 1 mg] 1 mg PO BID tablet Insulin Lispro [Humalog Kwikpen U-100] 15 unit SQ TID #5 insuln.pen Pen Needle, Diabetic [Insulin Pen Needle] 1 each MC DAILY #30 dis.needle Insulin Glargine [Lantus Insulin] 20 unit SQ HS 30 Days #5 pens Chlorhexidine Gluconate [Hibiclens] 3 ml TP DAILY #240 liquid Continue Promethazine HCl 25 mg [Phenergan 25 mg] 25 mg RC Q6HPRN PRN PRN Reason: Nausea Apixaban [Eliquis 5 mg Tablet] 5 mg PO BID Potassium Chloride 20 Meq [Klor-Con 20 MEQ] 20 meq PO DAILY Sumatriptan Succinate 25 mg [Imitrex 25 MG] 25 mg SQ DAILY PRN PRN Reason: Pain Eletriptan HBr [Relpax] 40 mg PO DAILY PRN PRN PRN Reason: Headache Spironolactone 25 mg [Aldactone 25 MG] 25 mg PO DAILY Atorvastatin Calcium [Lipitor 40Mg] 40 mg PO DAILY Losartan Potassium 25 mg PO DAILY Cholecalciferol (Vitamin D3) [Vitamin D3] 50,000 unit PO WEEKLY Discontinued Metformin HCl 500 mg [Glucophage 500 MG] 500 mg PO BIDWM Bumetanide [Bumex] 2 mg PO BID Additional Instructions: Call [facility] to contact Dr Cramer if needed prior to appt. Keep food /drink and sugar daily log and bring to appt. Follow up with: ZIGGY HAIRSTON [NON-STAFF PHY W/O PRIVILEGES] - DILEEP SIFUENTES [employer] WORK[employer] [Primary Care Provider] - MERRITT DURON [NON-STAFF PHY W/O PRIVILEGES] - JULIA CASTELLON MD [ASSOCIATE STAFF] - 11/26/20 1:10 pm (at [facility]) AMPARO CRAMER DO [ACTIVE STAFF] - 11/25/20 11:30 am
--- NOTE | 2020-11-19 17:24 | PCM.DS ---
Discharge Summary Date of Admission: 11/15/20 14:00 Date of Discharge: 11/19/2020 Admitting Physician: AMPARO CRAMER DO Consults: Consults on Case 11/14/20 16:37 Consult Surgery ROUTINE Primary Care Provider: DILEEP SIFUENTES Allergies Allergies escitalopram oxalate [From Lexapro] Allergy (Severe, Verified 11/14/20 11:55) Itching gabapentin Allergy (Severe, Verified 11/14/20 11:55) Vomiting adhesive Allergy (Intermediate, Verified 11/14/20 11:55) Blisters lisinopril Allergy (Intermediate, Verified 11/14/20 17:08) Skin Irritation hydromorphone HCl [From Dilaudid] Allergy (Verified 11/14/20 11:55) bee stings Allergy (Severe, Uncoded 11/14/20 11:55) Swelling bee stings Hospital Summary - Vitals & Intake/Output Vital Signs: Vital Signs Temperature 98.2 F 11/19/20 16:00 Pulse Rate 90 11/19/20 16:00 Respiratory Rate 22 11/19/20 16:00 Blood Pressure 119/69 11/19/20 16:00 O2 Sat by Pulse Oximetry 94 L 11/19/20 16:00 Intake & Output: Intake & Output 11/17/20 11/18/20 11/19/20 11/20/20 11:59 11:59 11:59 11:59 Intake Total 3636 1330 2203 Balance 3636 1330 2203 Weight 110.1 kg 110.9 kg - Lab Result Diagrams: 11/19/20 04:35 11/19/20 10:53 Lab Results-Last 24 Hrs: Lab Results-Last 24 Hours 11/18/20 11/18/20 11/18/20 Range/Units 04:25 04:25 16:45 WBC (4.0-10.5) K/mm3 RBC (4.1-5.4) M/mm3 Hgb (12.0-16.0) gm/dl Hct (35-47) % MCV (78-100) fl MCH (26-32) pg MCHC (32-36) g/dl RDW (11.5-14.0) % Plt Count (150-450) K/mm3 MPV (7.5-11.0) fl Gran % (36.0-66.0) % Eos # (Auto) (0-0.5) Absolute Lymphs (auto) (1.0-4.6) Absolute Monos (auto) (0.0-1.3) Lymphocytes % (24.0-44.0) % Monocytes % (0.0-12.0) % Eosinophils % (0.00-5.0) % Basophils % (0.0-0.4) % Absolute Granulocytes (1.4-6.9) Basophils # (0-0.4) Sodium (137-145) mmol/L Potassium (3.5-5.1) mmol/L Chloride (98-107) mmol/L Carbon Dioxide (22-30) mmol/L Anion Gap (5-15) MEQ/L BUN (7-17) mg/dL Creatinine (0.52-1.04) mg/dL Estimated GFR ML/MIN Glucose (74-106) mg/dL POC Glucometer (74 to 106) mg/dL Calcium (8.4-10.2) mg/dL Total Bilirubin (0.2-1.3) mg/dL AST (14-36) U/L ALT (0-35) U/L Alkaline Phosphatase (38-126) U/L Serum Total Protein (6.3-8.2) g/dL Albumin (3.5-5.0) g/dL Vitamin B12 435 (239-931) pg/mL 25-OH Vitamin D Total 29.4 L (30-100) ng/mL TSH 3rd Generation 1.990 (0.47-4.68) mIU/L 11/18/20 11/19/20 11/19/20 Range/Units 20:47 04:35 04:35 WBC 6.5 (4.0-10.5) K/mm3 RBC 4.39 (4.1-5.4) M/mm3 Hgb 12.2 (12.0-16.0) gm/dl Hct 39.5 (35-47) % MCV 90.0 (78-100) fl MCH 27.8 (26-32) pg MCHC 30.9 L (32-36) g/dl RDW 13.6 (11.5-14.0) % Plt Count 261 (150-450) K/mm3 MPV 10.8 (7.5-11.0) fl Gran % 44.1 (36.0-66.0) % Eos # (Auto) 0.02 (0-0.5) Absolute Lymphs (auto) 2.88 (1.0-4.6) Absolute Monos (auto) 0.71 (0.0-1.3) Lymphocytes % 44.4 H (24.0-44.0) % Monocytes % 10.9 (0.0-12.0) % Eosinophils % 0.3 (0.00-5.0) % Basophils % 0.3 (0.0-0.4) % Absolute Granulocytes 2.86 (1.4-6.9) Basophils # 0.02 (0-0.4) Sodium 135 L (137-145) mmol/L Potassium 3.0 L* (3.5-5.1) mmol/L Chloride 89 L (98-107) mmol/L Carbon Dioxide 39 H (22-30) mmol/L Anion Gap 9.6 (5-15) MEQ/L BUN 13 (7-17) mg/dL Creatinine 0.62 (0.52-1.04) mg/dL Estimated GFR > 60.0 ML/MIN Glucose 254 H (74-106) mg/dL POC Glucometer 371 H (74 to 106) mg/dL Calcium 8.8 (8.4-10.2) mg/dL Total Bilirubin 0.40 (0.2-1.3) mg/dL AST 38 H (14-36) U/L ALT 40 H (0-35) U/L Alkaline Phosphatase 113 (38-126) U/L Serum Total Protein 6.1 L (6.3-8.2) g/dL Albumin 3.3 L (3.5-5.0) g/dL Vitamin B12 (239-931) pg/mL 25-OH Vitamin D Total (30-100) ng/mL TSH 3rd Generation (0.47-4.68) mIU/L 11/19/20 11/19/20 11/19/20 Range/Units 07:02 10:53 11:41 WBC (4.0-10.5) K/mm3 RBC (4.1-5.4) M/mm3 Hgb (12.0-16.0) gm/dl Hct (35-47) % MCV (78-100) fl MCH (26-32) pg MCHC (32-36) g/dl RDW (11.5-14.0) % Plt Count (150-450) K/mm3 MPV (7.5-11.0) fl Gran % (36.0-66.0) % Eos # (Auto) (0-0.5) Absolute Lymphs (auto) (1.0-4.6) Absolute Monos (auto) (0.0-1.3) Lymphocytes % (24.0-44.0) % Monocytes % (0.0-12.0) % Eosinophils % (0.00-5.0) % Basophils % (0.0-0.4) % Absolute Granulocytes (1.4-6.9) Basophils # (0-0.4) Sodium (137-145) mmol/L Potassium 3.2 L (3.5-5.1) mmol/L Chloride (98-107) mmol/L Carbon Dioxide (22-30) mmol/L Anion Gap (5-15) MEQ/L BUN (7-17) mg/dL Creatinine (0.52-1.04) mg/dL Estimated GFR ML/MIN Glucose (74-106) mg/dL POC Glucometer 254 H 333 H (74 to 106) mg/dL Calcium (8.4-10.2) mg/dL Total Bilirubin (0.2-1.3) mg/dL AST (14-36) U/L ALT (0-35) U/L Alkaline Phosphatase (38-126) U/L Serum Total Protein (6.3-8.2) g/dL Albumin (3.5-5.0) g/dL Vitamin B12 (239-931) pg/mL 25-OH Vitamin D Total (30-100) ng/mL TSH 3rd Generation (0.47-4.68) mIU/L 11/19/20 Range/Units 15:48 WBC (4.0-10.5) K/mm3 RBC (4.1-5.4) M/mm3 Hgb (12.0-16.0) gm/dl Hct (35-47) % MCV (78-100) fl MCH (26-32) pg MCHC (32-36) g/dl RDW (11.5-14.0) % Plt Count (150-450) K/mm3 MPV (7.5-11.0) fl Gran % (36.0-66.0) % Eos # (Auto) (0-0.5) Absolute Lymphs (auto) (1.0-4.6) Absolute Monos (auto) (0.0-1.3) Lymphocytes % (24.0-44.0) % Monocytes % (0.0-12.0) % Eosinophils % (0.00-5.0) % Basophils % (0.0-0.4) % Absolute Granulocytes (1.4-6.9) Basophils # (0-0.4) Sodium (137-145) mmol/L Potassium (3.5-5.1) mmol/L Chloride (98-107) mmol/L Carbon Dioxide (22-30) mmol/L Anion Gap (5-15) MEQ/L BUN (7-17) mg/dL Creatinine (0.52-1.04) mg/dL Estimated GFR ML/MIN Glucose (74-106) mg/dL POC Glucometer 331 H (74 to 106) mg/dL Calcium (8.4-10.2) mg/dL Total Bilirubin (0.2-1.3) mg/dL AST (14-36) U/L ALT (0-35) U/L Alkaline Phosphatase (38-126) U/L Serum Total Protein (6.3-8.2) g/dL Albumin (3.5-5.0) g/dL Vitamin B12 (239-931) pg/mL 25-OH Vitamin D Total (30-100) ng/mL TSH 3rd Generation (0.47-4.68) mIU/L Micro Results-Entire Visit: Microbiology 11/14/20 12:05 Blood Culture Gram Stain - Final Blood Not Reportable Blood Culture - Final NO GROWTH 11/14/20 12:00 Blood Culture Gram Stain - Final Blood Not Reportable Blood Culture - Final NO GROWTH 11/15/20 16:20 Abscess Culture - Final Groin - Right Staphylococcus Aureus Accuchecks Date 11/19/20 Date 11/19/20 Date 11/19/20 Date 11/18/20 Time 21:21 - Procedures and Test Procedures and Tests throughout Hospitalization: Therapy Orders & Screens 11/14/20 17:02 Oxygen Nasal Cannula 2 lpm Comment: 11/15/20 18:18 BiPap/CPAP ROUTINE Comment: Diagnosis: ABCESS R LABIA, RECURRENT Final Diagnosis/Problem List - Final Discharge Diagnosis/Problem (1) Abscess of pubic region Current Visit: Yes Status: Acute Code(s): L02.219 - CUTANEOUS ABSCESS OF TRUNK, UNSPECIFIED (2) Hyperglycemia due to diabetes mellitus Current Visit: Yes Status: Acute Code(s): E11.65 - TYPE 2 DIABETES MELLITUS WITH HYPERGLYCEMIA (3) Abdominal cramping Current Visit: Yes Status: Resolved Code(s): R10.9 - UNSPECIFIED ABDOMINAL PAIN (4) Hypokalemia Current Visit: Yes Status: Resolved Code(s): E87.6 - HYPOKALEMIA - Discharge Disposition: Home, Self-Care Condition: Stable Prescriptions: New Sulfamethoxazole/Trimethoprim [Bactrim Ds Tablet] 1 each PO BID #28 tablet Bumetanide 1 mg [Bumex 1 mg] 1 mg PO BID tablet Insulin Lispro [Humalog Kwikpen U-100] 15 unit SQ TID #5 insuln.pen Pen Needle, Diabetic [Insulin Pen Needle] 1 each MC DAILY #30 dis.needle Insulin Glargine [Lantus Insulin] 20 unit SQ HS 30 Days #5 pens Chlorhexidine Gluconate [Hibiclens] 3 ml TP DAILY #240 liquid Continue Promethazine HCl 25 mg [Phenergan 25 mg] 25 mg RC Q6HPRN PRN PRN Reason: Nausea Apixaban [Eliquis 5 mg Tablet] 5 mg PO BID Potassium Chloride 20 Meq [Klor-Con 20 MEQ] 20 meq PO DAILY Sumatriptan Succinate 25 mg [Imitrex 25 MG] 25 mg SQ DAILY PRN PRN Reason: Pain Eletriptan HBr [Relpax] 40 mg PO DAILY PRN PRN PRN Reason: Headache Spironolactone 25 mg [Aldactone 25 MG] 25 mg PO DAILY Atorvastatin Calcium [Lipitor 40Mg] 40 mg PO DAILY Losartan Potassium 25 mg PO DAILY Cholecalciferol (Vitamin D3) [Vitamin D3] 50,000 unit PO WEEKLY Discontinued Metformin HCl 500 mg [Glucophage 500 MG] 500 mg PO BIDWM Bumetanide [Bumex] 2 mg PO BID Instructions: Insulin Regular, Type 2 Diabetes, Debridement of a Wound or Burn, Insulin Injection, Insulin Glargine, Wound Infection Additional Instructions: Call [facility] to contact Dr Cramer if needed prior to appt. Keep food /drink and sugar daily log and bring to appt. Follow up with: ZIGGY HAIRSTON [NON-STAFF PHY W/O PRIVILEGES] - DILEEP SIFUENTES [employer] [Primary Care Provider] - MERRITT DURON [NON-STAFF PHY W/O PRIVILEGES] - JULIA CASTELLON MD [ASSOCIATE STAFF] - 11/26/20 1:10 pm (at [facility]) AMPARO CRAMER DO [ACTIVE STAFF] - 11/25/20 11:30 am Forms: Discharge Instructions
== END 2020-11-19 18:40 | disposition home or self-care (01) | DRG 580 ==
LOC: ED 11:24 → ICU 16:37 → ED 11-15 11:24 → OBSVTOIN 11-15 14:00 → MED SURG 11-15 16:00 → ICU 11-15 16:37
PROVIDERS: ADMIT Family Medicine; ATTEND Family Medicine
PROC: 0J9C00Z Drainage of Pelvic Region Subcutaneous Tissue and Fascia with Drainage Device, Open Approach (ICD-10-PCS; principal; 2020-11-15)
PROC: 0D9QXZZ Drainage of Anus, External Approach (ICD-10-PCS; 2020-11-15)
DX: L02.214 Cutaneous abscess of groin (principal); K61.0 Anal abscess; E11.65 Type 2 diabetes mellitus with hyperglycemia; R10.9 Unspecified abdominal pain; E87.6 Hypokalemia; Z79.899 Other long term (current) drug therapy; Z79.01 Long term (current) use of anticoagulants; I10 Essential (primary) hypertension; E78.00 Pure hypercholesterolemia, unspecified; Z86.711 Personal history of pulmonary embolism; R11.0 Nausea; R51.9 Headache, unspecified; Z20.828 Contact with and (suspected) exposure to other viral communicable diseases
CPT/HCPCS: 0241U; 36415; 80048; 80053; 80202; 82306; 82607; 82947; 83036; 83605; 84132; 84443; 85025; 85027; 87040; 87070; 87077; 87186; 93268; 94002; 94760; 94762; 96374; 96375; 99285; G0378; J1100; J1817; J1885; J2270; J2370; J2405; J2704; J3010; A9270-GY; J3370

== ENCOUNTER 2021-04-28 15:35 | Observation (INO) | payer OTHER ==
--- NOTE | 2021-04-28 16:33 | ERPHSYRPT ---
- History of Present Illness Time Seen by Provider: 04/28/21 15:50 Source: patient Exam Limitations: no limitations Patient Subjective Stated Complaint: abscess Triage Nursing Assessment: . Physician History: Patient is a 55-year-old female presents to our ED with a recurrence of a right sided mons pubis abscess. Patient had a similar abscess back in November that was surgically drained by Dr. Martinez Toro. Patient states the current abscess was observed to recur on Wednesday. It started out with a swelling and over the c ourse of 2 days became significantly larger. The abscess has spontaneously drained serosanguineous fluid. It encroaches upon the labia majora on the right. No trauma. No fever. No nausea or vomiting. No abdominal pain. No vaginal discharge. Pain described as an ache that is localized. No radiation. Pain worse with palpation. Pain improved with rest. Patient voices no other complaints concerns at this time. Timing/Duration: day(s) (2 days ago) Severity: moderate Modifying Factors: Improves With: nothing Associated Symptoms: denies symptoms Allergies/Adverse Reactions: escitalopram oxalate [From Lexapro] Allergy (Severe, Verified 11/14/20 11:55) Itching gabapentin Allergy (Severe, Verified 11/14/20 11:55) Vomiting adhesive Allergy (Intermediate, Verified 11/14/20 11:55) Blisters lisinopril Allergy (Intermediate, Verified 11/14/20 17:08) Skin Irritation hydromorphone HCl [From Dilaudid] Allergy (Verified 11/14/20 11:55) bee stings Allergy (Severe, Uncoded 11/14/20 11:55) Swelling bee stings insulin Allergy (Uncoded 04/28/21 15:57) Home Medications: Promethazine HCl 25 mg [Phenergan 25 mg] 25 mg RC Q6HPRN PRN 08/29/15 [History] Apixaban [Eliquis 5 mg Tablet] 5 mg PO BID 05/06/17 [History] Eletriptan HBr [Relpax] 40 mg PO DAILY PRN PRN 05/06/17 [History] Potassium Chloride 20 Meq [Klor-Con 20 MEQ] 20 meq PO DAILY 05/06/17 [History] Sumatriptan Succinate 25 mg [Imitrex 25 MG] 25 mg SQ DAILY PRN 05/06/17 [History] Atorvastatin Calcium [Lipitor 40Mg] 40 mg PO DAILY 11/14/20 [History] Cholecalciferol (Vitamin D3) [Vitamin D3] 50,000 unit PO WEEKLY 11/14/20 [History] Losartan Potassium 25 mg PO DAILY 11/14/20 [History] Spironolactone 25 mg [Aldactone 25 MG] 25 mg PO DAILY 11/14/20 [History] Glimepiride 4 mg [Amaryl 4 mg] 4 mg PO BID 04/28/21 [History] Hx Tetanus, Diphtheria Vaccination/Date Given: No Hx Influenza Vaccination/Date Given: Yes Hx Pneumococcal Vaccination/Date Given: Yes Immunizations Up to Date: Yes Travel Risk - International Travel Have you traveled outside of the country in past 3 weeks: No - Coronavirus Screening Are you exhibiting any of the following symptoms?: No Close contact with a COVID-19 positive Pt in past 14-21 Days: No - Vaccine Status Have you recieved a Covid-19 vaccination: No - Review of Systems Constitutional: No Symptoms, No Fever, No Chills Eyes: No Symptoms Ears, Nose, & Throat: No Symptoms Respiratory: No Symptoms, No Cough, No Dyspnea Cardiac: No Symptoms, No Chest Pain, No Edema, No Syncope Abdominal/Gastrointestinal: No Symptoms, No Abdominal Pain, No Nausea, No Vomiting, No Diarrhea Genitourinary Symptoms: No Symptoms, No Dysuria Musculoskeletal: No Symptoms, No Back Pain, No Neck Pain Skin: No Symptoms, No Rash Neurological: No Symptoms, No Dizziness, No Focal Weakness, No Sensory Changes Psychological: No Symptoms Endocrine: No Symptoms Hematologic/Lymphatic: No Symptoms Immunological/Allergic: No Symptoms All Other Systems: Reviewed and Negative - Past Medical History Pertinent Past Medical History: Yes Neurological History: Migraines, Other ENT History: No Pertinent History Cardiac History: High Cholesterol, Hypertension Respiratory History: COPD, Pulmonary Embolism Endocrine Medical History: Diabetes Type II Musculoskeletal History: Arthritis GI Medical History: Gallbladder Disease History: No Pertinent History Psycho-Social History: Anxiety, Depression Female Reproductive Disorders: Abnormal Uterine Bleeding, Fibroids Other Medical History: 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 3 abscesses drained in last 1.5 years - Social History Smoking Status: Never smoker Exposure to second hand smoke: No Drug Use: none Patient Lives Alone: No - Female History Hx Now: No - Nursing Vital Signs Nursing Vital Signs: Initial Vital Signs Temperature 97.6 F 04/28/21 15:43 Pulse Rate 106 H 04/28/21 15:43 Respiratory Rate 18 04/28/21 15:43 Blood Pressure 183/110 04/28/21 15:43 O2 Sat by Pulse Oximetry 95 04/28/21 15:43 Pain Scale Pain Intensity 10 - Physical Exam General Appearance: no apparent distress, alert Eye Exam: PERRL/EOMI, eyes nml inspection Ears, Nose, Throat Exam: normal ENT inspection, TMs normal, pharynx normal, moist mucous membranes Neck Exam: normal inspection, non-tender, supple, full range of motion Respiratory Exam: normal breath sounds, lungs clear, airway intact, No chest tenderness, No respiratory distress Cardiovascular Exam: regular rate/rhythm, normal heart sounds, normal peripheral pulses Gastrointestinal/Abdomen Exam: soft, normal bowel sounds, No tenderness, No mass Back Exam: normal inspection, normal range of motion, No CVA tenderness, No vertebral tenderness Extremity Exam: normal inspection, normal range of motion, pelvis stable Neurologic Exam: alert, oriented x 3, cooperative, normal mood/affect, sensation nml, No motor deficits Skin Exam: normal color, warm, dry, No rash Lymphatic Exam: No adenopathy SpO2 Interpretation: normal SpO2: 95 O2 Delivery: Room Air - Course Nursing assessment & vital signs reviewed: Yes Ordered Tests: Active Orders 24 hr Category Date Time Status IV Insertion STAT Care 04/28/21 17:23 Active CBC W DIFF Stat Lab 04/28/21 17:49 Completed CMP Stat Lab 04/28/21 17:49 Completed UA W/RFX UR CULTURE Stat Lab 04/28/21 18:26 Ordered Transfer Order Routine Transfer 04/28/21 Ordered Medication Summary Generic Name Dose Route Start Last Admin Trade Name Freq PRN Reason Stop Dose Admin Sodium Chloride 1,000 mls @ 100 mls/hr 10/18/21 17:30 04/28/21 17:38 Sodium Chloride 0.9% 1000 Ml IV 05/28/21 17:29 100 mls/hr .Q10H KAREN Administration Discontinued Medications Generic Name Dose Route Start Last Admin Trade Name Thierry PRN Reason Stop Dose Admin Insulin Human Regular 8 unit 04/28/21 18:26 Insulin Regular, Human 1 Unit SQ 04/28/21 18:27 STAT ONE Lab/Rad Data: Laboratory Result Diagrams 04/28/21 17:49 04/28/21 17:49 Laboratory Results 04/28/21 04/28/21 04/28/21 Range/Units 17:50 17:49 17:49 WBC 10.9 H (4.0-10.5) K/mm3 RBC 5.12 (4.1-5.4) M/mm3 Hgb 14.3 (12.0-16.0) gm/dl Hct 44.0 (35-47) % MCV 85.9 (78-100) fl MCH 27.9 (26-32) pg MCHC 32.5 (32-36) g/dl RDW 13.8 (11.5-14.0) % Plt Count 218 (150-450) K/mm3 MPV 11.1 H (7.5-11.0) fl Gran % 68.5 H (36.0-66.0) % Eos # (Auto) 0.04 (0-0.5) Absolute Lymphs (auto) 2.44 (1.0-4.6) Absolute Monos (auto) 0.87 (0.0-1.3) Lymphocytes % 22.5 L (24.0-44.0) % Monocytes % 8.0 (0.0-12.0) % Eosinophils % 0.4 (0.00-5.0) % Basophils % 0.6 (0.0-0.4) % Absolute Granulocytes 7.45 H (1.4-6.9) Basophils # 0.06 (0-0.4) Sodium 131 L (137-145) mmol/L Potassium 3.5 (3.5-5.1) mmol/L Chloride 91 L (98-107) mmol/L Carbon Dioxide 22 (22-30) mmol/L Anion Gap 20.7 H (5-15) MEQ/L BUN 17 (7-17) mg/dL Creatinine 0.72 (0.52-1.04) mg/dL Estimated GFR > 60.0 ML/MIN Glucose 533 H* (74-106) mg/dL Calcium 9.8 (8.4-10.2) mg/dL Total Bilirubin 0.60 (0.2-1.3) mg/dL AST 39 H (14-36) U/L ALT 40 H (0-35) U/L Alkaline Phosphatase 192 H (38-126) U/L Serum Total Protein 7.4 (6.3-8.2) g/dL Albumin 4.1 (3.5-5.0) g/dL SARS-CoV-2 (PCR) NEGATIVE (NEGATIVE) - Progress Progress: improved Progress Note: Case discussed with Dr. Martinez Toro. Patient's last meal was 3 PM. Patient will not have a procedure done tonight. We will admit patient Dr. Powers service. We will keep patient n.p.o. Patient will have an I&D tomorrow by Dr. Martinez Toro. Dr. oTro will be on consult. Plan of care discussed with patient. She agrees to admission [facility] for further evaluation and treatment. 04/28/21 17:26 04/28/21 19:23 Covid test negative. Per Dr. Powers we will hold antibiotics until confirming with Dr. Toro. Patient has hyperglycemia may be reactive to abscess. There is a elevated anion gap. Patient received 8 units regular insulin subcu along with IV fluid bolus. She will require repeat labs to assess glucose and anion gap. Urinalysis pending 04/28/21 19:32 Discussed with : Trey Will see patient in: hospital (observation) Counseled pt/family regarding: lab results, diagnosis - Departure Departure Disposition: Observation Clinical Impression: Hyperglycemia, Abscess Condition: Stable Critical Care Time: No Referrals: DILEEP SIFUENTES, REGINE [Primary Care Provider] -
[2021-04-28] MEDS ORDERED: Sodium Chloride 0.9% 1000 ML 1,000 ML IV SCH (17:30)
[2021-04-28] MEDS ORDERED: Sodium Chloride 0.9% 1000 ML 1,000 ML ONE (17:35)
[2021-04-28 17:56] LABS: Absolute Neutrophil Ct (ANC) 7.45 (1.4-6.9); BASOPHIL % 0.6 % (0.0-0.4); Basophil (Absolute #) 0.06 (0-0.4); Eosinophil % 0.4 % (0.00-5.0); Eosinophil (Absolute #) 0.04 (0-0.5); Hemoglobin 14.3 gm/dl (12.0-16.0); Lymphocyte (Absolute #) 2.44 (1.0-4.6); Lymphocytes % 22.5 % (24.0-44.0); Mean Cell Volume 85.9 fl (78-100); Mean Corpuscular Hemoglobin 27.9 pg (26-32); Mean Corpuscular Hgb Concent. 32.5 g/dl (32-36); Mean Platelet Volume 11.1 fl (7.5-11.0); Monocyte (Absolute #) 0.87 (0.0-1.3); Neutrophil % 68.5 % (36.0-66.0); Platelet Count 218 K/mm3 (150-450); Red Blood Count 5.12 M/mm3 (4.1-5.4); Red Cell Distribution Width 13.8 % (11.5-14.0); White Blood Count 10.9 K/mm3 (4.0-10.5)
[2021-04-28 18:09] LABS: ALBUMIN 4.1 g/dL (3.5-5.0); ALKALINE PHOSPHATASE 192 U/L (38-126); ANION GAP 20.7 MEQ/L (5-15); BLOOD UREA NITROGEN 17 mg/dL (7-17); CHLORIDE 91 mmol/L (98-107); Calcium 9.8 mg/dL (8.4-10.2); Carbon Dioxide 22 mmol/L (22-30); Creatinine 1 0.72 mg/dL (0.52-1.04); EST GLOMERULAR FILTRATION RATE > 60.0 ML/MIN; Potassium 3.5 mmol/L (3.5-5.1); SGOT/AST 39 U/L (14-36); SODIUM 131 mmol/L (137-145); Total Protein 7.4 g/dL (6.3-8.2)
[2021-04-28 18:14] LABS: Glucose 533 mg/dL (74-106)
[2021-04-28 18:16] LABS: SGPT/ALT 40 U/L (0-35)
[2021-04-28] MEDS ORDERED: HUMULIN R SQ ONE (18:26)
[2021-04-28] MEDS ORDERED: HUMULIN R ONE (19:36)
[2021-04-28] MEDS ORDERED: VANCOMYCIN 1.25 GM/250 ML BAG 1.25 GM/250 ML PIGGYBACK IV SCH (21:30)
[2021-04-28] MEDS ORDERED: AMARYL 4 MG PO SCH (22:00)
[2021-04-28] MEDS ORDERED: TYLENOL EXTRA STRENGTH 500 MG PO PRN (22:20)
[2021-04-28] MEDS: NORCO 5/325 MG PO PRN (22:40)
[2021-04-28] MEDS: Sodium Chloride 0.9% 1000 ML 1,000 ML IV SCH (22:41)
[2021-04-28] MEDS ORDERED: AMARYL 4 MG ONE (23:17)
[2021-04-29 00:12] LABS: Appearance SLIGHTLY CLOUDY (CLEAR); Bacteria MODERATE /HPF (NEGATIVE); Bilirubin NEGATIVE (NEGATIVE); Blood SMALL Ery/ul (0-5); Epithelial Cells RARE /HPF (FEW); Glucose >=500 mg/dL (NEGATIVE); Ketones NEGATIVE (NEGATIVE); Leukocyte Esterase MODERATE (NEGATIVE); Nitrite POSITIVE (NEGATIVE); Protein,Urine Dip NEGATIVE (Negative); Specific Gravity 1.029 (1.005-1.025); Urobilinogen NEGATIVE mg/dL (0-1); WBC 51-100 /HPF (0-5)
[2021-04-29] MEDS: NORCO 5/325 MG PO PRN ×5 (03:42→22:40)
[2021-04-29 05:24] LABS: Absolute Neutrophil Ct (ANC) 4.28 (1.4-6.9); BASOPHIL % 0.2 % (0.0-0.4); Basophil (Absolute #) 0.02 (0-0.4); Eosinophil (Absolute #) 0.08 (0-0.5); Hematocrit 39.1 % (35-47); Hemoglobin 12.5 gm/dl (12.0-16.0); Lymphocyte (Absolute #) 2.86 (1.0-4.6); Lymphocytes % 35.5 % (24.0-44.0); Mean Cell Volume 86.3 fl (78-100); Mean Corpuscular Hemoglobin 27.6 pg (26-32); Monocyte (Absolute #) 0.81 (0.0-1.3); Monocytes % 10.1 % (0.0-12.0); Neutrophil % 53.2 % (36.0-66.0); Platelet Count 215 K/mm3 (150-450); Red Blood Count 4.53 M/mm3 (4.1-5.4); Red Cell Distribution Width 13.8 % (11.5-14.0); White Blood Count 8.1 K/mm3 (4.0-10.5)
[2021-04-29 06:34] LABS: ALBUMIN 3.4 g/dL (3.5-5.0); ALKALINE PHOSPHATASE 126 U/L (38-126); ANION GAP 11.1 MEQ/L (5-15); BLOOD UREA NITROGEN 12 mg/dL (7-17); CHLORIDE 97 mmol/L (98-107); Calcium 9.1 mg/dL (8.4-10.2); Carbon Dioxide 29 mmol/L (22-30); Creatinine 1 0.65 mg/dL (0.52-1.04); EST GLOMERULAR FILTRATION RATE > 60.0 ML/MIN; Glucose 314 mg/dL (74-106); SGOT/AST 25 U/L (14-36); SGPT/ALT 27 U/L (0-35); SODIUM 134 mmol/L (137-145); Total Protein 6.3 g/dL (6.3-8.2)
[2021-04-29] MEDS: PHENERGAN 25 MG PO PRN (07:29)
[2021-04-29] MEDS ORDERED: K-LYTE 25 MEQ PO ONE (07:30)
[2021-04-29] MEDS ORDERED: SUMATRIPTAN SUCCINATE 25 MG PO PRN (07:32)
[2021-04-29] MEDS ORDERED: MEDICATION INTERVENTION MC PRN (07:39)
[2021-04-29] MEDS ORDERED: NON-FORMULARY ITEM (Cholecalciferol (Vitamin D3) [Vitamin D3] 1,000 UNIT Capsule) PO SCH (07:45)
[2021-04-29] MEDS: AMARYL 4 MG PO SCH ×2 (08:18→16:16)
[2021-04-29] MEDS ORDERED: NON-FORMULARY ITEM PO ONE (08:30)
--- NOTE | 2021-04-29 09:38 | PCM.HP ---
History of Present Illness - Chief Complaint Chief Complaint: abscess History of Present Illness: is a 55 year old female with uncontrolled DM2 due to allergic to Insulin and multiple other meds. She has reocurring abcess right mons pubic area and this flared again 4 days ago. She is a patient on Dr Martinez Toro who has arranges surgery to I&D abcess today. Medications & Allergies Home Medications: Home Medication List Promethazine HCl 25 mg [Phenergan 25 mg] 25 mg PO Q6HPRN PRN 08/29/15 [History Confirmed 04/28/21] Apixaban [Eliquis 5 mg Tablet] 5 mg PO BID 05/06/17 [History Confirmed 04/28/21] Eletriptan HBr [Relpax] 40 mg PO DAILY PRN PRN 05/06/17 [History Confirmed 04/28/21] Potassium Chloride 20 Meq [Klor-Con 20 MEQ] 20 meq PO DAILY 05/06/17 [History Confirmed 04/28/21] Sumatriptan Succinate 25 mg [Imitrex 25 MG] 25 mg PO DAILY PRN 05/06/17 [History Confirmed 04/28/21] Cholecalciferol (Vitamin D3) [Vitamin D3] 50,000 unit PO WEEKLY 11/14/20 [History Confirmed 04/28/21] Spironolactone 25 mg [Aldactone 25 MG] 25 mg PO DAILY 11/14/20 [History Confirmed 04/28/21] Bumetanide 1 mg [Bumex 1 mg] 2 mg PO BID 04/28/21 [History Confirmed 04/28/21] Glimepiride 4 mg [Amaryl 4 mg] 4 mg PO BID 04/28/21 [History Confirmed 04/28/21] Allergies/Adverse Reactions: Allergies Allergy/AdvReac Type Severity Reaction Status Date / Time escitalopram oxalate Allergy Severe Itching Verified 04/28/21 20:55 [From Lexapro] gabapentin Allergy Severe Vomiting Verified 04/28/21 20:55 adhesive Allergy Intermediate Blisters Verified 04/28/21 20:55 lisinopril Allergy Intermediate Skin Verified 04/28/21 20:55 Irritation hydromorphone HCl Allergy Mild VISUAL Verified 04/28/21 20:55 [From Dilaudid] DISTURBANCE insulin regular Allergy Mild Verified 04/28/21 20:55 [From Humulin R Regular U-100 Insuln] bee stings Allergy Severe Swelling Uncoded 11/14/20 11:55 insulin Allergy Uncoded 04/28/21 15:57 - Past Medical History Past Medical History: Yes Neurological History: Migraines, Other ENT History: No Pertinent History Cardiac History: Congestive Heart Failure, High Cholesterol, Hypertension Respiratory History: COPD, Pulmonary Embolism Endocrine Medical History: Diabetes Type II Musculoskelatal History: Arthritis GI Medical History: Gallbladder Disease History: No Pertinent History Pyscho-Social History: Anxiety, Depression Reproductive Disorders: Abnormal Uterine Bleeding, Fibroids Comment: recurrent 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 Filter placed 2011 yr ago after PE, rhinoplasty and multiple left knee repairs, [facility]. 3 abscesses drained in last 1.5 years - Social History Smoking Status: Never smoker Exposure to second hand smoke: No Alcohol: None Drug Use: none - Physical Exam Vital Signs: Vital Signs - 24 hr Temp Pulse Resp BP Pulse Ox 04/29/21 08:00 97.3 F 97 H 18 118/56 94 L 04/29/21 05:43 98.4 F 100 H 18 126/69 92 L 04/28/21 21:49 97.6 F 103 H 118/79 95 04/28/21 19:33 95 04/28/21 19:20 103 H 18 118/79 93 L 04/28/21 17:43 105 H 19 120/80 95 04/28/21 16:36 104 H 20 119/83 95 04/28/21 15:43 97.6 F 106 H 18 183/110 95 Wound Assessment: Skin/Wound Assessment Wound/Incision Assessment Start: 04/28/21 22:20 Text: Status: Active Freq: Q6H Protocol: Document 04/29/21 04:20 RG (Rec: 04/29/21 04:45 [id number]) Wound/Incision Assessment Right Other Wound Assessment Shift Assessment Wound Type abscess Drainage Amount Minimal Drainage Odor None/Absent General Appearance Bleeding Comment vaginal abcess, Wound Photo Photo Taken No Results - Labs Lab/Micro Results: Lab Results-Last 24 Hours 04/28/21 04/28/21 04/28/21 Range/Units 17:49 17:49 17:50 WBC 10.9 H (4.0-10.5) K/mm3 RBC 5.12 (4.1-5.4) M/mm3 Hgb 14.3 (12.0-16.0) gm/dl Hct 44.0 (35-47) % MCV 85.9 (78-100) fl MCH 27.9 (26-32) pg MCHC 32.5 (32-36) g/dl RDW 13.8 (11.5-14.0) % Plt Count 218 (150-450) K/mm3 MPV 11.1 H (7.5-11.0) fl Gran % 68.5 H (36.0-66.0) % Eos # (Auto) 0.04 (0-0.5) Absolute Lymphs (auto) 2.44 (1.0-4.6) Absolute Monos (auto) 0.87 (0.0-1.3) Lymphocytes % 22.5 L (24.0-44.0) % Monocytes % 8.0 (0.0-12.0) % Eosinophils % 0.4 (0.00-5.0) % Basophils % 0.6 (0.0-0.4) % Absolute Granulocytes 7.45 H (1.4-6.9) Basophils # 0.06 (0-0.4) Sodium 131 L (137-145) mmol/L Potassium 3.5 (3.5-5.1) mmol/L Chloride 91 L (98-107) mmol/L Carbon Dioxide 22 (22-30) mmol/L Anion Gap 20.7 H (5-15) MEQ/L BUN 17 (7-17) mg/dL Creatinine 0.72 (0.52-1.04) mg/dL Estimated GFR > 60.0 ML/MIN Glucose 533 H* (74-106) mg/dL POC Glucometer (74 to 106) mg/dL Calcium 9.8 (8.4-10.2) mg/dL Total Bilirubin 0.60 (0.2-1.3) mg/dL AST 39 H (14-36) U/L ALT 40 H (0-35) U/L Alkaline Phosphatase 192 H (38-126) U/L Serum Total Protein 7.4 (6.3-8.2) g/dL Albumin 4.1 (3.5-5.0) g/dL Urine Color (YELLOW) Urine Appearance (CLEAR) Urine pH (5-6) Ur Specific [place] (1.005-1.025) Urine Protein (Negative) Urine Ketones (NEGATIVE) Urine Blood (0-5) Teo/ul Urine Nitrite (NEGATIVE) Urine Bilirubin (NEGATIVE) Urine Urobilinogen (0-1) mg/dL Ur Leukocyte Esterase (NEGATIVE) Urine WBC (Auto) (0-5) /HPF Urine RBC (Auto) (0-2) /HPF U Epithel Cells (Auto) (FEW) /HPF Urine Bacteria (Auto) (NEGATIVE) /HPF Urine Culture Reflexed (NO) Urine Glucose (NEGATIVE) mg/dL SARS-CoV-2 (PCR) NEGATIVE (NEGATIVE) 04/28/21 04/28/21 04/29/21 Range/Units 18:26 21:07 04:27 WBC 8.1 (4.0-10.5) K/mm3 RBC 4.53 (4.1-5.4) M/mm3 Hgb 12.5 (12.0-16.0) gm/dl Hct 39.1 (35-47) % MCV 86.3 (78-100) fl MCH 27.6 (26-32) pg MCHC 32.0 (32-36) g/dl RDW 13.8 (11.5-14.0) % Plt Count 215 (150-450) K/mm3 MPV 11.0 (7.5-11.0) fl Gran % 53.2 (36.0-66.0) % Eos # (Auto) 0.08 (0-0.5) Absolute Lymphs (auto) 2.86 (1.0-4.6) Absolute Monos (auto) 0.81 (0.0-1.3) Lymphocytes % 35.5 (24.0-44.0) % Monocytes % 10.1 (0.0-12.0) % Eosinophils % 1.0 (0.00-5.0) % Basophils % 0.2 (0.0-0.4) % Absolute Granulocytes 4.28 (1.4-6.9) Basophils # 0.02 (0-0.4) Sodium (137-145) mmol/L Potassium (3.5-5.1) mmol/L Chloride (98-107) mmol/L Carbon Dioxide (22-30) mmol/L Anion Gap (5-15) MEQ/L BUN (7-17) mg/dL Creatinine (0.52-1.04) mg/dL Estimated GFR ML/MIN Glucose (74-106) mg/dL POC Glucometer 413 H (74 to 106) mg/dL Calcium (8.4-10.2) mg/dL Total Bilirubin (0.2-1.3) mg/dL AST (14-36) U/L ALT (0-35) U/L Alkaline Phosphatase (38-126) U/L Serum Total Protein (6.3-8.2) g/dL Albumin (3.5-5.0) g/dL Urine Color YELLOW (YELLOW) Urine Appearance SLIGHTLY CLOUDY (CLEAR) Urine pH 6.0 (5-6) Ur Specific [place] 1.029 (1.005-1.025) Urine Protein NEGATIVE (Negative) Urine Ketones NEGATIVE (NEGATIVE) Urine Blood SMALL (0-5) Teo/ul Urine Nitrite POSITIVE (NEGATIVE) Urine Bilirubin NEGATIVE (NEGATIVE) Urine Urobilinogen NEGATIVE (0-1) mg/dL Ur Leukocyte Esterase MODERATE (NEGATIVE) Urine WBC (Auto) 51-100 (0-5) /HPF Urine RBC (Auto) 3-5 (0-2) /HPF U Epithel Cells (Auto) RARE (FEW) /HPF Urine Bacteria (Auto) MODERATE (NEGATIVE) /HPF Urine Culture Reflexed YES (NO) Urine Glucose >=500 (NEGATIVE) mg/dL SARS-CoV-2 (PCR) (NEGATIVE) 04/29/21 04/29/21 Range/Units 04:27 07:09 WBC (4.0-10.5) K/mm3 RBC (4.1-5.4) M/mm3 Hgb (12.0-16.0) gm/dl Hct (35-47) % MCV (78-100) fl MCH (26-32) pg MCHC (32-36) g/dl RDW (11.5-14.0) % Plt Count (150-450) K/mm3 MPV (7.5-11.0) fl Gran % (36.0-66.0) % Eos # (Auto) (0-0.5) Absolute Lymphs (auto) (1.0-4.6) Absolute Monos (auto) (0.0-1.3) Lymphocytes % (24.0-44.0) % Monocytes % (0.0-12.0) % Eosinophils % (0.00-5.0) % Basophils % (0.0-0.4) % Absolute Granulocytes (1.4-6.9) Basophils # (0-0.4) Sodium 134 L (137-145) mmol/L Potassium 3.0 L* (3.5-5.1) mmol/L Chloride 97 L (98-107) mmol/L Carbon Dioxide 29 (22-30) mmol/L Anion Gap 11.1 (5-15) MEQ/L BUN 12 (7-17) mg/dL Creatinine 0.65 (0.52-1.04) mg/dL Estimated GFR > 60.0 ML/MIN Glucose 314 H (74-106) mg/dL POC Glucometer 347 H (74 to 106) mg/dL Calcium 9.1 (8.4-10.2) mg/dL Total Bilirubin 0.70 (0.2-1.3) mg/dL AST 25 (14-36) U/L ALT 27 (0-35) U/L Alkaline Phosphatase 126 (38-126) U/L Serum Total Protein 6.3 (6.3-8.2) g/dL Albumin 3.4 L (3.5-5.0) g/dL Urine Color (YELLOW) Urine Appearance (CLEAR) Urine pH (5-6) Ur Specific [place] (1.005-1.025) Urine Protein (Negative) Urine Ketones (NEGATIVE) Urine Blood (0-5) Teo/ul Urine Nitrite (NEGATIVE) Urine Bilirubin (NEGATIVE) Urine Urobilinogen (0-1) mg/dL Ur Leukocyte Esterase (NEGATIVE) Urine WBC (Auto) (0-5) /HPF Urine RBC (Auto) (0-2) /HPF U Epithel Cells (Auto) (FEW) /HPF Urine Bacteria (Auto) (NEGATIVE) /HPF Urine Culture Reflexed (NO) Urine Glucose (NEGATIVE) mg/dL SARS-CoV-2 (PCR) (NEGATIVE) Accuchecks Date 04/29/21 Time 08:10 Assessment/Plan (1) Abscess Current Visit: Yes Status: Acute Assessment & Plan: right mons pubis,reocurrence. Dr Sage Toro plans I&D today Code(s): L02.91 - CUTANEOUS ABSCESS, UNSPECIFIED (2) DM2 (diabetes mellitus, type 2) Current Visit: Yes Status: Chronic Qualifiers: Diabetes mellitus complication status: with hyperglycemia Assessment & Plan: patient is allergic to insulin -Hx sustained tachycardia and flushing if using insulin. (3) Hypokalemia Current Visit: No Status: Acute Assessment & Plan: takes potassium 20meq at home,gived additional 25meq this morning. recheck today and in am. Code(s): E87.6 - HYPOKALEMIA
[2021-04-29] MEDS: Aldactone 25 MG PO SCH (09:40)
[2021-04-29] MEDS: BUMEX 1 MG PO SCH (09:40)
[2021-04-29] MEDS: Klor Con 10 MEQ PO SCH (09:40)
[2021-04-29] MEDS: ROCEPHIN 1 Gm-D5w 50 ml Bag** 1 G/50 ML IVPB IV SCH (09:41)
[2021-04-29] MEDS: Sodium Chloride 0.9% 1000 ML 1,000 ML IV SCH (09:41)
[2021-04-29] MEDS ORDERED: NON-FORMULARY ITEM (Potassium Chloride 20 Meq [Klor-Con 20 Meq] 20 MEQ Tab) PO SCH (10:00)
[2021-04-29] MEDS: xanAX 0.5 MG PO PRN ×2 (10:05→22:41)
[2021-04-29] MEDS: VANCOMYCIN 1.25 GM/250 ML BAG 1.25 GM/250 ML PIGGYBACK IV SCH ×2 (10:05→21:26)
[2021-04-29] MEDS ORDERED: Sensorcaine 0.25% 10 ML ONE (17:01)
[2021-04-29] MEDS ORDERED: Versed 2 MG/2 ML Injection ONE (17:36)
[2021-04-29] MEDS ORDERED: Xylocaine-Mpf 2% 5 Ml Vial ONE (17:36)
[2021-04-29] MEDS ORDERED: DIPRIVAN 200 MG/20 ML IV ONE (17:36)
[2021-04-29] MEDS ORDERED: Ketamine HCl 50 MG/ML ONE (17:37)
[2021-04-29] MEDS ORDERED: Zofran 4 MG/2 ML VIAL ONE (17:37)
[2021-04-29] MEDS ORDERED: BRIDION 200MG/2ML IV ONE (17:37)
[2021-04-29] MEDS ORDERED: Zemuron 100 MG/10 ML ONE (17:37)
[2021-04-29] MEDS ORDERED: SUBLIMAZE 100 MCG/2 ML ONE (17:39)
--- NOTE | 2021-04-29 18:10 | PCM.CONS ---
History of Present Illness - Reason for Consult Chief Complaint: abscess Requesting Provider: AMPARO JOHNSTON DO Consulting Provider: JULIA CASTELLON MD History of Present Illness: hx per chart review and d/w pt last week sugars running high. wednesday felt a bump right groin. wednesday way worse. surgars zeyad high. went to ed. abscess. sugar 500 admit. labs improved. pain similar. denies other abscess locations. " History of Present Illness - Chief Complaint Chief Complaint: abscess History of Present Illness: is a 55 year old female with uncontrolled DM2 due to allergic to Insulin and multiple other meds. She has reocurring abcess right mons pubic area and this flared again 4 days ago. She is a patient on Dr Martinez Castellon who has arranges surgery to I&D abcess today. Medications & Allergies Home Medications: Home Medication List Promethazine HCl 25 mg [Phenergan 25 mg] 25 mg PO Q6HPRN PRN 08/29/15 [History Confirmed 04/28/21] Apixaban [Eliquis 5 mg Tablet] 5 mg PO BID 05/06/17 [History Confirmed 04/28/21] Eletriptan HBr [Relpax] 40 mg PO DAILY PRN PRN 05/06/17 [History Confirmed 04/28/21] Potassium Chloride 20 Meq [Klor-Con 20 MEQ] 20 meq PO DAILY 05/06/17 [History Confirmed 04/28/21] Sumatriptan Succinate 25 mg [Imitrex 25 MG] 25 mg PO DAILY PRN 05/06/17 [History Confirmed 04/28/21] Cholecalciferol (Vitamin D3) [Vitamin D3] 50,000 unit PO WEEKLY 11/14/20 [History Confirmed 04/28/21] Spironolactone 25 mg [Aldactone 25 MG] 25 mg PO DAILY 11/14/20 [History Confirmed 04/28/21] Bumetanide 1 mg [Bumex 1 mg] 2 mg PO BID 04/28/21 [History Confirmed 04/28/21] Glimepiride 4 mg [Amaryl 4 mg] 4 mg PO BID 04/28/21 [History Confirmed 04/28/21] Allergies/Adverse Reactions: Allergies Allergy/AdvReac Type Severity Reaction Status Date / Time escitalopram oxalate Allergy Severe Itching Verified 04/28/21 20:55 [From Lexapro] gabapentin Allergy Severe Vomiting Verified 04/28/21 20:55 adhesive Allergy Intermediate Blisters Verified 04/28/21 20:55 lisinopril Allergy Intermediate Skin Verified 04/28/21 20:55 Irritation hydromorphone HCl Allergy Mild VISUAL Verified 04/28/21 20:55 [From Dilaudid] DISTURBANCE insulin regular Allergy Mild Verified 04/28/21 20:55 [From Humulin R Regular U-100 Insuln] bee stings Allergy Severe Swelling Uncoded 11/14/20 11:55 insulin Allergy Uncoded 04/28/21 15:57 - Past Medical History Past Medical History: Yes Neurological History: Migraines, Other ENT History: No Pertinent History Cardiac History: Congestive Heart Failure, High Cholesterol, Hypertension Respiratory History: COPD, Pulmonary Embolism Endocrine Medical History: Diabetes Type II Musculoskelatal History: Arthritis GI Medical History: Gallbladder Disease History: No Pertinent History Pyscho-Social History: Anxiety, Depression Reproductive Disorders: Abnormal Uterine Bleeding, Fibroids Comment: recurrent 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 Filter placed 2011 yr ago after PE, rhinoplasty and multiple left knee repairs, cyst removed from [facility]. 3 abscesses drained in last 1.5 years - Social History Smoking Status: Never smoker Exposure to second hand smoke: No Alcohol: None Drug Use: none" Medications & Allergies Home Medications: Home Medication List Promethazine HCl 25 mg [Phenergan 25 mg] 25 mg PO Q6HPRN PRN 08/29/15 [History Confirmed 04/28/21] Apixaban [Eliquis 5 mg Tablet] 5 mg PO BID 05/06/17 [History Confirmed 1 ] Eletriptan HBr [Relpax] 40 mg PO DAILY PRN PRN 05/06/17 [History Confirmed 04/28/21] Potassium Chloride 20 Meq [Klor-Con 20 MEQ] 20 meq PO DAILY 05/06/17 [History Confirmed 04/28/21] Sumatriptan Succinate 25 mg [Imitrex 25 MG] 25 mg PO DAILY PRN 05/06/17 [History Confirmed 04/28/21] Cholecalciferol (Vitamin D3) [Vitamin D3] 50,000 unit PO WEEKLY 11/14/20 [History Confirmed 04/28/21] Spironolactone 25 mg [Aldactone 25 MG] 25 mg PO DAILY 11/14/20 [History Confirmed 04/28/21] Bumetanide 1 mg [Bumex 1 mg] 2 mg PO BID 04/28/21 [History Confirmed 04/28/21] Glimepiride 4 mg [Amaryl 4 mg] 4 mg PO BID 04/28/21 [History Confirmed 04/28/21] Allergies/Adverse Reactions: Allergies Allergy/AdvReac Type Severity Reaction Status Date / Time escitalopram oxalate Allergy Severe Itching Verified 04/28/21 20:55 [From Lexapro] gabapentin Allergy Severe Vomiting Verified 04/28/21 20:55 adhesive Allergy Intermediate Blisters Verified 04/28/21 20:55 lisinopril Allergy Intermediate Skin Verified 04/28/21 20:55 Irritation hydromorphone HCl Allergy Mild VISUAL Verified 04/28/21 20:55 [From Dilaudid] DISTURBANCE insulin regular Allergy Mild Verified 04/28/21 20:55 [From Humulin R Regular U-100 Insuln] bee stings Allergy Severe Swelling Uncoded 11/14/20 11:55 insulin Allergy Uncoded 04/28/21 15:57 - Past Medical History Past Medical History: Yes Neurological History: Migraines, Other ENT History: No Pertinent History Cardiac History: Congestive Heart Failure, High Cholesterol, Hypertension Respiratory History: COPD, Pulmonary Embolism Endocrine Medical History: Diabetes Type II Musculoskelatal History: Arthritis GI Medical History: Gallbladder Disease History: No Pertinent History Pyscho-Social History: Anxiety, Depression Reproductive Disorders: Abnormal Uterine Bleeding, Fibroids Comment: recurrent 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 3 abscesses drained in last 1.5 years - Social History Smoking Status: Never smoker Exposure to second hand smoke: No Alcohol: None Drug Use: none - Physical Exam Vital Signs: Vital Signs - 24 hr Temp Pulse Resp BP Pulse Ox 04/29/21 16:00 98.1 F 95 H 16 112/68 92 L 04/29/21 15:57 98.3 F 91 H 18 109/55 94 L 04/29/21 15:54 98.3 F 91 H 18 109/55 94 L 04/29/21 12:36 98.3 F 91 H 18 109/55 94 L 04/29/21 11:59 98.3 F 91 H 18 109/55 94 L 04/29/21 10:00 97.3 F 97 H 18 118/56 94 L 04/29/21 08:00 97.3 F 97 H 18 118/56 94 L 04/29/21 05:43 98.4 F 100 H 18 126/69 92 L 04/28/21 21:49 97.6 F 103 H 118/79 95 04/28/21 19:33 95 04/28/21 19:20 103 H 18 118/79 93 L General Appearance: no apparent distress, No mild distress Neurologic Exam: alert, oriented x 3, cooperative Eye Exam: eyes nml inspection, No scleral icterus Neck Exam: normal inspection Respiratory Exam: No respiratory distress, No accessory muscle use Cardiovascular Exam: regular rate/rhythm, No edema Gastrointestinal/Abdomen Exam: soft, No tenderness, No distention Pelvic Exam: other (right mons extending towards vulva erythema, 1cm open wound actively draining purulosangunious.) Rectal Exam: deferred Extremity Exam: normal inspection Skin Exam: normal color, warm, dry Wound Assessment: Skin/Wound Assessment Wound/Incision Assessment Start: 04/28/21 22:20 Text: Status: Active Freq: Q6H Protocol: Document 04/29/21 16:00 DS (Rec: 04/29/21 16:37 DS [id number]) Wound/Incision Assessment Right Other Wound Assessment Shift Assessment Wound Type abcess Drainage Amount Minimal Drainage Description Serosanguineous Drainage Odor None/Absent General Appearance Bleeding Surrounding Tissue Bright Red Primary Dressing Gauze Pads Comment vaginal abcess, Wound Photo Photo Taken No Results - Labs Lab/Micro Results: Lab Results-Last 24 Hours 04/28/21 04/28/21 04/28/21 Range/Units 17:49 17:50 18:26 WBC (4.0-10.5) K/mm3 RBC (4.1-5.4) M/mm3 Hgb (12.0-16.0) gm/dl Hct (35-47) % MCV (78-100) fl MCH (26-32) pg MCHC (32-36) g/dl RDW (11.5-14.0) % Plt Count (150-450) K/mm3 MPV (7.5-11.0) fl Gran % (36.0-66.0) % Eos # (Auto) (0-0.5) Absolute Lymphs (auto) (1.0-4.6) Absolute Monos (auto) (0.0-1.3) Lymphocytes % (24.0-44.0) % Monocytes % (0.0-12.0) % Eosinophils % (0.00-5.0) % Basophils % (0.0-0.4) % Absolute Granulocytes (1.4-6.9) Basophils # (0-0.4) Sodium 131 L (137-145) mmol/L Potassium 3.5 (3.5-5.1) mmol/L Chloride 91 L (98-107) mmol/L Carbon Dioxide 22 (22-30) mmol/L Anion Gap 20.7 H (5-15) MEQ/L BUN 17 (7-17) mg/dL Creatinine 0.72 (0.52-1.04) mg/dL Estimated GFR > 60.0 ML/MIN Glucose 533 H* (74-106) mg/dL POC Glucometer (74 to 106) mg/dL Calcium 9.8 (8.4-10.2) mg/dL Total Bilirubin 0.60 (0.2-1.3) mg/dL AST 39 H (14-36) U/L ALT 40 H (0-35) U/L Alkaline Phosphatase 192 H (38-126) U/L Serum Total Protein 7.4 (6.3-8.2) g/dL Albumin 4.1 (3.5-5.0) g/dL Urine Color YELLOW (YELLOW) Urine Appearance SLIGHTLY CLOUDY (CLEAR) Urine pH 6.0 (5-6) Ur Specific [place] 1.029 (1.005-1.025) Urine Protein NEGATIVE (Negative) Urine Ketones NEGATIVE (NEGATIVE) Urine Blood SMALL (0-5) Teo/ul Urine Nitrite POSITIVE (NEGATIVE) Urine Bilirubin NEGATIVE (NEGATIVE) Urine Urobilinogen NEGATIVE (0-1) mg/dL Ur Leukocyte Esterase MODERATE (NEGATIVE) Urine WBC (Auto) 51-100 (0-5) /HPF Urine RBC (Auto) 3-5 (0-2) /HPF U Epithel Cells (Auto) RARE (FEW) /HPF Urine Bacteria (Auto) MODERATE (NEGATIVE) /HPF Urine Culture Reflexed YES (NO) Urine Glucose >=500 (NEGATIVE) mg/dL SARS-CoV-2 (PCR) NEGATIVE (NEGATIVE) 04/28/21 04/29/21 04/29/21 Range/Units 21:07 04:27 04:27 WBC 8.1 (4.0-10.5) K/mm3 RBC 4.53 (4.1-5.4) M/mm3 Hgb 12.5 (12.0-16.0) gm/dl Hct 39.1 (35-47) % MCV 86.3 (78-100) fl MCH 27.6 (26-32) pg MCHC 32.0 (32-36) g/dl RDW 13.8 (11.5-14.0) % Plt Count 215 (150-450) K/mm3 MPV 11.0 (7.5-11.0) fl Gran % 53.2 (36.0-66.0) % Eos # (Auto) 0.08 (0-0.5) Absolute Lymphs (auto) 2.86 (1.0-4.6) Absolute Monos (auto) 0.81 (0.0-1.3) Lymphocytes % 35.5 (24.0-44.0) % Monocytes % 10.1 (0.0-12.0) % Eosinophils % 1.0 (0.00-5.0) % Basophils % 0.2 (0.0-0.4) % Absolute Granulocytes 4.28 (1.4-6.9) Basophils # 0.02 (0-0.4) Sodium 134 L (137-145) mmol/L Potassium 3.0 L* (3.5-5.1) mmol/L Chloride 97 L (98-107) mmol/L Carbon Dioxide 29 (22-30) mmol/L Anion Gap 11.1 (5-15) MEQ/L BUN 12 (7-17) mg/dL Creatinine 0.65 (0.52-1.04) mg/dL Estimated GFR > 60.0 ML/MIN Glucose 314 H (74-106) mg/dL POC Glucometer 413 H (74 to 106) mg/dL Calcium 9.1 (8.4-10.2) mg/dL Total Bilirubin 0.70 (0.2-1.3) mg/dL AST 25 (14-36) U/L ALT 27 (0-35) U/L Alkaline Phosphatase 126 (38-126) U/L Serum Total Protein 6.3 (6.3-8.2) g/dL Albumin 3.4 L (3.5-5.0) g/dL Urine Color (YELLOW) Urine Appearance (CLEAR) Urine pH (5-6) Ur Specific [place] (1.005-1.025) Urine Protein (Negative) Urine Ketones (NEGATIVE) Urine Blood (0-5) Teo/ul Urine Nitrite (NEGATIVE) Urine Bilirubin (NEGATIVE) Urine Urobilinogen (0-1) mg/dL Ur Leukocyte Esterase (NEGATIVE) Urine WBC (Auto) (0-5) /HPF Urine RBC (Auto) (0-2) /HPF U Epithel Cells (Auto) (FEW) /HPF Urine Bacteria (Auto) (NEGATIVE) /HPF Urine Culture Reflexed (NO) Urine Glucose (NEGATIVE) mg/dL SARS-CoV-2 (PCR) (NEGATIVE) 04/29/21 04/29/21 04/29/21 Range/Units 07:09 11:37 13:28 WBC (4.0-10.5) K/mm3 RBC (4.1-5.4) M/mm3 Hgb (12.0-16.0) gm/dl Hct (35-47) % MCV (78-100) fl MCH (26-32) pg MCHC (32-36) g/dl RDW (11.5-14.0) % Plt Count (150-450) K/mm3 MPV (7.5-11.0) fl Gran % (36.0-66.0) % Eos # (Auto) (0-0.5) Absolute Lymphs (auto) (1.0-4.6) Absolute Monos (auto) (0.0-1.3) Lymphocytes % (24.0-44.0) % Monocytes % (0.0-12.0) % Eosinophils % (0.00-5.0) % Basophils % (0.0-0.4) % Absolute Granulocytes (1.4-6.9) Basophils # (0-0.4) Sodium (137-145) mmol/L Potassium 3.7 D (3.5-5.1) mmol/L Chloride (98-107) mmol/L Carbon Dioxide (22-30) mmol/L Anion Gap (5-15) MEQ/L BUN (7-17) mg/dL Creatinine (0.52-1.04) mg/dL Estimated GFR ML/MIN Glucose (74-106) mg/dL POC Glucometer 347 H 349 H (74 to 106) mg/dL Calcium (8.4-10.2) mg/dL Total Bilirubin (0.2-1.3) mg/dL AST (14-36) U/L ALT (0-35) U/L Alkaline Phosphatase (38-126) U/L Serum Total Protein (6.3-8.2) g/dL Albumin (3.5-5.0) g/dL Urine Color (YELLOW) Urine Appearance (CLEAR) Urine pH (5-6) Ur Specific [place] (1.005-1.025) Urine Protein (Negative) Urine Ketones (NEGATIVE) Urine Blood (0-5) Teo/ul Urine Nitrite (NEGATIVE) Urine Bilirubin (NEGATIVE) Urine Urobilinogen (0-1) mg/dL Ur Leukocyte Esterase (NEGATIVE) Urine WBC (Auto) (0-5) /HPF Urine RBC (Auto) (0-2) /HPF U Epithel Cells (Auto) (FEW) /HPF Urine Bacteria (Auto) (NEGATIVE) /HPF Urine Culture Reflexed (NO) Urine Glucose (NEGATIVE) mg/dL SARS-CoV-2 (PCR) (NEGATIVE) 04/29/21 Range/Units 16:18 WBC (4.0-10.5) K/mm3 RBC (4.1-5.4) M/mm3 Hgb (12.0-16.0) gm/dl Hct (35-47) % MCV (78-100) fl MCH (26-32) pg MCHC (32-36) g/dl RDW (11.5-14.0) % Plt Count (150-450) K/mm3 MPV (7.5-11.0) fl Gran % (36.0-66.0) % Eos # (Auto) (0-0.5) Absolute Lymphs (auto) (1.0-4.6) Absolute Monos (auto) (0.0-1.3) Lymphocytes % (24.0-44.0) % Monocytes % (0.0-12.0) % Eosinophils % (0.00-5.0) % Basophils % (0.0-0.4) % Absolute Granulocytes (1.4-6.9) Basophils # (0-0.4) Sodium (137-145) mmol/L Potassium (3.5-5.1) mmol/L Chloride (98-107) mmol/L Carbon Dioxide (22-30) mmol/L Anion Gap (5-15) MEQ/L BUN (7-17) mg/dL Creatinine (0.52-1.04) mg/dL Estimated GFR ML/MIN Glucose (74-106) mg/dL POC Glucometer 301 H (74 to 106) mg/dL Calcium (8.4-10.2) mg/dL Total Bilirubin (0.2-1.3) mg/dL AST (14-36) U/L ALT (0-35) U/L Alkaline Phosphatase (38-126) U/L Serum Total Protein (6.3-8.2) g/dL Albumin (3.5-5.0) g/dL Urine Color (YELLOW) Urine Appearance (CLEAR) Urine pH (5-6) Ur Specific [place] (1.005-1.025) Urine Protein (Negative) Urine Ketones (NEGATIVE) Urine Blood (0-5) Teo/ul Urine Nitrite (NEGATIVE) Urine Bilirubin (NEGATIVE) Urine Urobilinogen (0-1) mg/dL Ur Leukocyte Esterase (NEGATIVE) Urine WBC (Auto) (0-5) /HPF Urine RBC (Auto) (0-2) /HPF U Epithel Cells (Auto) (FEW) /HPF Urine Bacteria (Auto) (NEGATIVE) /HPF Urine Culture Reflexed (NO) Urine Glucose (NEGATIVE) mg/dL SARS-CoV-2 (PCR) (NEGATIVE) Accuchecks Date 04/29/21 Date 04/29/21 Date 04/29/21 Time 16:24 Time 11:58 Time 08:10 Assessment/Plan (1) Abscess Current Visit: Yes Status: Acute Assessment & Plan: 55yo female right groin/mons abscess somewhat actively draining, but undrained infection. poorly controlled dm2 hyperglycemia. -to OR for I&D today. Code(s): L02.91 - CUTANEOUS ABSCESS, UNSPECIFIED
[2021-04-29] MEDS ORDERED: Decadron 4 MG INJ ONE (18:30)
[2021-04-29] MEDS ORDERED: PHENYLEPHRINE HCL ONE (18:32)
[2021-04-30] MEDS: BUMEX 1 MG PO SCH ×3 (00:29→17:06)
[2021-04-30] MEDS: NORCO 5/325 MG PO PRN ×3 (04:00→18:30)
[2021-04-30] MEDS: Sodium Chloride 0.9% 1000 ML 1,000 ML IV SCH (05:03)
[2021-04-30] MEDS: AMARYL 4 MG PO SCH ×2 (07:55→17:06)
[2021-04-30 08:29] LABS: Absolute Neutrophil Ct (ANC) 6.36 (1.4-6.9); BASOPHIL % 0.3 % (0.0-0.4); Basophil (Absolute #) 0.03 (0-0.4); Eosinophil % 0.1 % (0.00-5.0); Eosinophil (Absolute #) 0.01 (0-0.5); Hematocrit 41.2 % (35-47); Hemoglobin 12.8 gm/dl (12.0-16.0); Lymphocyte (Absolute #) 1.79 (1.0-4.6); Lymphocytes % 20.6 % (24.0-44.0); Mean Cell Volume 89.4 fl (78-100); Mean Corpuscular Hemoglobin 27.8 pg (26-32); Mean Corpuscular Hgb Concent. 31.1 g/dl (32-36); Mean Platelet Volume 10.9 fl (7.5-11.0); Monocyte (Absolute #) 0.51 (0.0-1.3); Monocytes % 5.9 % (0.0-12.0); Neutrophil % 73.1 % (36.0-66.0); Platelet Count 214 K/mm3 (150-450); Red Blood Count 4.61 M/mm3 (4.1-5.4); Red Cell Distribution Width 14.2 % (11.5-14.0); White Blood Count 8.7 K/mm3 (4.0-10.5)
--- NOTE | 2021-04-30 08:44 | OP ---
SURGERY DATE/TIME: 04/29/2021 180 PREOPERATIVE DIAGNOSIS: Right groin abscess. POSTOPERATIVE DIAGNOSIS: Right groin abscess. PROCEDURE: Incision and drainage of right groin abscess measuring 5 cm wide, 5 cm craniocaudal and 1 cm deep in the subcutaneous space. SURGEON: Dl Toro M.D. ANESTHESIA: General. SPECIMEN: Swab for culture. PATIENT CONDITION: Stable. COMPLICATIONS: None. HISTORY: The patient is a 55 year-old female, uncontrolled diabetic, having multiple reactions to medications and seeing endocrinology due to that. However worsening of her pain in the right groin with abscess with some mild active drainage but inadequate drainage, some fluctuance on exam. Discussed with the patient the risk of wound and anesthesia and she elected to proceed with I&D. FINDINGS: As below. DESCRIPTION OF PROCEDURE: The patient was brought to operating room. General anesthesia induced. Routinely positioned in lithotomy. Time out is performed. She received preoperative antibiotic. The patient was examined at the right mons. Extending just superior to the right vulva is fluctuant abscess. There is a 1 cm defect in the skin. The abscess cavity is probed. There is bert pus. A swab is taken for culture. The abscess cavity is about 5 cm wide, 5 cm craniocaudal, only about 1 cm deep. Two counter incisions are placed laterally and then at the inferior most portion and then vessel loops are brought out either the counter incisions to active drain. They are looped and tied to themselves as a loop drain. The wound is copiously irrigated. There is no other abscess. There is just some mild induration otherwise. There is good hemostasis. Clean dressing is applied. All counts were correct. The patient tolerated the procedure well, plan is for extubation.
[2021-04-30 09:29] LABS: ALBUMIN 3.6 g/dL (3.5-5.0); ALKALINE PHOSPHATASE 105 U/L (38-126); ANION GAP 12.9 MEQ/L (5-15); BLOOD UREA NITROGEN 11 mg/dL (7-17); CHLORIDE 98 mmol/L (98-107); Calcium 8.6 mg/dL (8.4-10.2); Carbon Dioxide 28 mmol/L (22-30); Creatinine 1 0.63 mg/dL (0.52-1.04); EST GLOMERULAR FILTRATION RATE > 60.0 ML/MIN; Glucose 340 mg/dL (74-106); Potassium 3.6 mmol/L (3.5-5.1); SGOT/AST 38 U/L (14-36); SODIUM 136 mmol/L (137-145); Total Protein 6.8 g/dL (6.3-8.2)
[2021-04-30] MEDS: Klor Con 10 MEQ PO SCH (09:31)
[2021-04-30] MEDS: Aldactone 25 MG PO SCH (09:32)
[2021-04-30] MEDS: ROCEPHIN 1 Gm-D5w 50 ml Bag** 1 G/50 ML IVPB IV SCH (09:32)
[2021-04-30 09:36] LABS: SGPT/ALT 40 U/L (0-35)
[2021-04-30] MEDS: VANCOMYCIN 1.25 GM/250 ML BAG 1.25 GM/250 ML PIGGYBACK IV SCH ×2 (12:00→23:14)
[2021-04-30] MEDS: xanAX 0.5 MG PO PRN (12:09)
[2021-04-30] MEDS ORDERED: Sodium Chloride 0.9% 10 ML FLUSH Syringe IV PRN (14:30)
[2021-04-30 14:31] LABS: Hematocrit 44.9 % (35-47); Mean Cell Volume 83.9 fl (78-100); Mean Corpuscular Hemoglobin 26.2 pg (26-32); Mean Corpuscular Hgb Concent. 31.2 g/dl (32-36); Mean Platelet Volume 10.1 fl (7.5-11.0); Platelet Count 281 K/mm3 (150-450); Red Blood Count 5.35 M/mm3 (4.1-5.4); Red Cell Distribution Width 17.4 % (11.5-14.0); White Blood Count 12.1 K/mm3 (4.0-10.5)
[2021-05-01] MEDS: xanAX 0.5 MG PO PRN (00:09)
[2021-05-01] MEDS: NORCO 5/325 MG PO PRN ×2 (00:09→07:47)
[2021-05-01 05:10] LABS: Absolute Neutrophil Ct (ANC) 3.59 (1.4-6.9); BASOPHIL % 0.3 % (0.0-0.4); Basophil (Absolute #) 0.02 (0-0.4); Eosinophil % 1.1 % (0.00-5.0); Eosinophil (Absolute #) 0.08 (0-0.5); Hematocrit 39.5 % (35-47); Hemoglobin 12.3 gm/dl (12.0-16.0); Lymphocytes % 41.9 % (24.0-44.0); Mean Cell Volume 89.4 fl (78-100); Mean Corpuscular Hemoglobin 27.8 pg (26-32); Mean Corpuscular Hgb Concent. 31.1 g/dl (32-36); Mean Platelet Volume 10.9 fl (7.5-11.0); Monocyte (Absolute #) 0.61 (0.0-1.3); Monocytes % 8.2 % (0.0-12.0); Neutrophil % 48.5 % (36.0-66.0); Platelet Count 212 K/mm3 (150-450); Red Blood Count 4.42 M/mm3 (4.1-5.4); Red Cell Distribution Width 14.2 % (11.5-14.0); White Blood Count 7.4 K/mm3 (4.0-10.5)
[2021-05-01 05:33] LABS: ANION GAP 11.6 MEQ/L (5-15); BLOOD UREA NITROGEN 12 mg/dL (7-17); CHLORIDE 97 mmol/L (98-107); Calcium 8.3 mg/dL (8.4-10.2); Carbon Dioxide 28 mmol/L (22-30); Creatinine 1 0.62 mg/dL (0.52-1.04); EST GLOMERULAR FILTRATION RATE > 60.0 ML/MIN; Glucose 349 mg/dL (74-106); SODIUM 134 mmol/L (137-145)
[2021-05-01] MEDS ORDERED: K-LYTE 25 MEQ PO ONE (06:49)
[2021-05-01] MEDS: Sodium Chloride 0.9% 10 ML FLUSH Syringe IV SCH ×3 (07:41→14:44)
[2021-05-01] MEDS: AMARYL 4 MG PO SCH ×2 (07:47→17:11)
[2021-05-01] MEDS: Aldactone 25 MG PO SCH (09:29)
[2021-05-01] MEDS: BUMEX 1 MG PO SCH ×2 (09:29→17:11)
[2021-05-01] MEDS: Klor Con 10 MEQ PO SCH (09:29)
[2021-05-01] MEDS: ROCEPHIN 1 Gm-D5w 50 ml Bag** 1 G/50 ML IVPB IV SCH (09:30)
[2021-05-01] MEDS: PHENERGAN 25 MG PO PRN (09:34)
[2021-05-01] MEDS: VANCOMYCIN 1.25 GM/250 ML BAG 1.25 GM/250 ML PIGGYBACK IV SCH (10:45)
[2021-05-01 13:10] VITALS: O2SAT 93
--- NOTE | 2021-05-01 13:49 | PCM.NOTE ---
Date and Time: 05/01/21 1340 Subjective Assessment: Patient is on Vancomycin and Rocephin for pubic abcess S/P I&D and UTI. Cultures show no growth from the abcess. UTI grew E.Coli. Has drain in and Surgery will be rounding this afternoon or evening. Patient wants to go home. She missed her appts due to illness with [facility] ,Dr Lofton and Dr Curiel,Triage Rn re allergy to insulin. New appts to be made before discharge. Objective Exam Wound Assessment: Skin/Wound Assessment Wound/Incision Assessment Start: 04/28/21 22:20 Text: Status: Active Freq: Q6H Protocol: Document 05/01/21 10:00 AL (Rec: 05/01/21 10:37 AL [id number]) Wound/Incision Assessment Right Other Wound Assessment Shift Assessment Wound Type Incision Wound Stage Non Pressure Wound Dressing Status Dry & Intact Drainage Amount Minimal Drainage Description Sanguineous Drainage Odor None/Absent General Appearance Well Approximated Primary Dressing Absorbant Pad Comment Dx CDI at this time Lower Comment vascular loops in place Wound Photo Photo Taken No OBJECTIVE DATA Vital Signs: Vital Signs - 24 hr Temp Pulse Resp BP Pulse Ox 05/01/21 11:00 96.9 F 104 H 16 132/71 93 L 05/01/21 07:00 97.9 F 69 17 110/59 94 L 05/01/21 03:00 97.8 F 95 H 17 113/64 95 04/30/21 23:00 96.0 F 103 H 17 134/62 96 04/30/21 19:00 97.0 F 100 H 20 121/62 95 04/30/21 15:00 98.5 F 100 H 16 124/60 96 Pain Assessment - Last Documented Pain Intensity 3 Pain Scale Used 0-10 Pain Scale Intake and Output: Intake & Output 04/29/21 04/30/21 05/01/21 05/02/21 11:59 11:59 11:59 11:59 Intake Total 0 3688 2260 240 Output Total 1100 2600 1200 Balance -1100 1088 1060 240 Weight 109.769 kg 109.769 kg Lab Results: Lab Results-Last 24 Hours 04/30/21 04/30/21 04/30/21 Range/Units 13:33 16:35 20:36 WBC 12.1 H (4.0-10.5) K/mm3 RBC 5.35 (4.1-5.4) M/mm3 Hgb 14.0 (12.0-16.0) gm/dl Hct 44.9 (35-47) % MCV 83.9 D (78-100) fl MCH 26.2 (26-32) pg MCHC 31.2 L (32-36) g/dl RDW 17.4 H (11.5-14.0) % Plt Count 281 (150-450) K/mm3 MPV 10.1 (7.5-11.0) fl Gran % (36.0-66.0) % Eos # (Auto) (0-0.5) Absolute Lymphs (auto) (1.0-4.6) Absolute Monos (auto) (0.0-1.3) Lymphocytes % (24.0-44.0) % Monocytes % (0.0-12.0) % Eosinophils % (0.00-5.0) % Basophils % (0.0-0.4) % Absolute Granulocytes (1.4-6.9) Basophils # (0-0.4) Sodium (137-145) mmol/L Potassium (3.5-5.1) mmol/L Chloride (98-107) mmol/L Carbon Dioxide (22-30) mmol/L Anion Gap (5-15) MEQ/L BUN (7-17) mg/dL Creatinine (0.52-1.04) mg/dL Estimated GFR ML/MIN Glucose (74-106) mg/dL POC Glucometer 375 H 390 H (74 to 106) mg/dL Calcium (8.4-10.2) mg/dL 05/01/21 05/01/21 05/01/21 Range/Units 04:36 04:36 07:14 WBC 7.4 (4.0-10.5) K/mm3 RBC 4.42 (4.1-5.4) M/mm3 Hgb 12.3 (12.0-16.0) gm/dl Hct 39.5 (35-47) % MCV 89.4 D (78-100) fl MCH 27.8 (26-32) pg MCHC 31.1 L (32-36) g/dl RDW 14.2 H (11.5-14.0) % Plt Count 212 (150-450) K/mm3 MPV 10.9 (7.5-11.0) fl Gran % 48.5 (36.0-66.0) % Eos # (Auto) 0.08 (0-0.5) Absolute Lymphs (auto) 3.10 (1.0-4.6) Absolute Monos (auto) 0.61 (0.0-1.3) Lymphocytes % 41.9 (24.0-44.0) % Monocytes % 8.2 (0.0-12.0) % Eosinophils % 1.1 (0.00-5.0) % Basophils % 0.3 (0.0-0.4) % Absolute Granulocytes 3.59 (1.4-6.9) Basophils # 0.02 (0-0.4) Sodium 134 L (137-145) mmol/L Potassium 3.0 L* (3.5-5.1) mmol/L Chloride 97 L (98-107) mmol/L Carbon Dioxide 28 (22-30) mmol/L Anion Gap 11.6 (5-15) MEQ/L BUN 12 (7-17) mg/dL Creatinine 0.62 (0.52-1.04) mg/dL Estimated GFR > 60.0 ML/MIN Glucose 349 H (74-106) mg/dL POC Glucometer 290 H (74 to 106) mg/dL Calcium 8.3 L (8.4-10.2) mg/dL 05/01/21 Range/Units 11:50 WBC (4.0-10.5) K/mm3 RBC (4.1-5.4) M/mm3 Hgb (12.0-16.0) gm/dl Hct (35-47) % MCV (78-100) fl MCH (26-32) pg MCHC (32-36) g/dl RDW (11.5-14.0) % Plt Count (150-450) K/mm3 MPV (7.5-11.0) fl Gran % (36.0-66.0) % Eos # (Auto) (0-0.5) Absolute Lymphs (auto) (1.0-4.6) Absolute Monos (auto) (0.0-1.3) Lymphocytes % (24.0-44.0) % Monocytes % (0.0-12.0) % Eosinophils % (0.00-5.0) % Basophils % (0.0-0.4) % Absolute Granulocytes (1.4-6.9) Basophils # (0-0.4) Sodium (137-145) mmol/L Potassium (3.5-5.1) mmol/L Chloride (98-107) mmol/L Carbon Dioxide (22-30) mmol/L Anion Gap (5-15) MEQ/L BUN (7-17) mg/dL Creatinine (0.52-1.04) mg/dL Estimated GFR ML/MIN Glucose (74-106) mg/dL POC Glucometer 338 H (74 to 106) mg/dL Calcium (8.4-10.2) mg/dL Multi-Disciplinary Progress Notes: Multi-Disciplinary Progress Notes 05/01/21 11:19 Case Management Note by Rosa Haines PATIENT CONTINUES TO DENY ANY NEW NEEDS REGARDING DC AT THIS TIME- WILL CONTINUE TO FOLLOW FOR ANY NEW NEEDS Initialized on 05/01/21 11:19 - END OF NOTE Assessment/Plan (1) Abscess Current Visit: Yes Status: Acute Code(s): L02.91 - CUTANEOUS ABSCESS, UNSPECIFIED (2) DM2 (diabetes mellitus, type 2) Current Visit: Yes Status: Chronic Qualifiers: Diabetes mellitus complication status: with hyperglycemia (3) Hypokalemia Current Visit: No Status: Acute Code(s): E87.6 - HYPOKALEMIA
[2021-05-01] MEDS ORDERED: NORCO 5/325 MG PO PRN (14:24)
[2021-05-01] MEDS ORDERED: ELIQUIS 2.5 MG TABLET PO SCH (14:30)
[2021-05-01 15:54] VITALS: BP 124/70; PULSE 93
[2021-05-02] MEDS ORDERED: TROUGH DRUG LEVELS IJ ONE (09:30)
[2021-05-02] MEDS ORDERED: VITAMIN D2 PO SCH (10:00)
== END 2021-05-01 17:29 | disposition home or self-care (01) ==
LOC: ED 15:35 → MED SURG 20:15
PROVIDERS: ADMIT Family Medicine; ATTEND Family Medicine
DX: L02.215 Cutaneous abscess of perineum (principal); E11.65 Type 2 diabetes mellitus with hyperglycemia; N39.0 Urinary tract infection, site not specified; B96.20 Unspecified Escherichia coli [E. coli] as the cause of diseases classified elsewhere; E87.6 Hypokalemia; I10 Essential (primary) hypertension; E78.00 Pure hypercholesterolemia, unspecified; Z86.711 Personal history of pulmonary embolism; J44.9 Chronic obstructive pulmonary disease, unspecified; Z79.899 Other long term (current) drug therapy; Z79.01 Long term (current) use of anticoagulants; Z20.822 Contact with and (suspected) exposure to COVID-19; Z79.4 Long term (current) use of insulin
CPT/HCPCS: 10060; 36000; 36415; 80048; 80053; 81001; 82947; 84132; 85025; 85027; 87070; 87077; 87086; 87186; 99284; G0378; U0003; J0696; J1100; J1815; J2250; J2370; J2405; J2704; J3010; A9270-GY; J3370

== ENCOUNTER 2022-10-25 22:41 | Emergency (ER) | payer OTHER ==
--- NOTE | 2022-10-25 23:13 | ERPHSYRPT ---
- History of Present Illness Time Seen by Provider: 10/25/22 23:00 Source: patient Exam Limitations: no limitations Patient Subjective Stated Complaint: pt states she has had a cough for approx 1 week. on , cough increased and pt developed earache also. states she has decreased hearing and stabbing pain in her lt ear. Triage Nursing Assessment: pt alert and oriented, answers questions approp. pt ambulates into room with steady gait noted. respirations nonlabored. coarse lung sound in lt side. skin warm and dry. pt holding lt ear, no drainage noted. Physician History: URI sx for a week, and now with left ear pain. No high fever, no other sx. Timing/Duration: week(s) (one) Cough Quality/Degree: mild Possible Cause: occasional episodes Modifying Factors: Improves With: nothing Associated Symptoms: earache, nasal congestion Allergies/Adverse Reactions: escitalopram oxalate [From Lexapro] Allergy (Severe, Verified 10/25/22 22:57) Itching gabapentin Allergy (Severe, Verified 10/25/22 22:57) Vomiting adhesive Allergy (Intermediate, Verified 10/25/22 22:57) Blisters lisinopril Allergy (Intermediate, Verified 10/25/22 22:57) Skin Irritation hydromorphone HCl [From Dilaudid] Allergy (Mild, Verified 10/25/22 22:57) VISUAL DISTURBANCE insulin regular [From Humulin R Regular U-100 Insuln] Allergy (Mild, Verified 10/25/22 22:57) All types of insulin per patient bee stings Allergy (Severe, Uncoded 10/25/22 22:57) Swelling bee stings insulin Allergy (Uncoded 10/25/22 22:57) Home Medications: Promethazine HCl 25 mg [Phenergan 25 mg] 25 mg PO Q6HPRN PRN 08/29/15 [History] Apixaban [Eliquis 5 mg Tablet] 5 mg PO BID 05/06/17 [History] Potassium Chloride 20 Meq [Klor-Con 20 MEQ] 20 meq PO DAILY 05/06/17 [History] Cholecalciferol (Vitamin D3) [Vitamin D3] 50,000 unit PO WEEKLY 11/14/20 [History] Spironolactone 25 mg [Aldactone 25 MG] 25 mg PO DAILY 11/14/20 [History] Bumetanide 1 mg [Bumex 1 mg] 2 mg PO BID 04/28/21 [History] Insulin Glargine,Hum.rec.anlog [Toujeo Solostar] 32 unit SQ BID 10/25/22 [History] Insulin Glulisine [Apidra Solostar] 100 unit SQ UD 10/25/22 [History] Hx Tetanus, Diphtheria Vaccination/Date Given: No Hx Influenza Vaccination/Date Given: No Hx Pneumococcal Vaccination/Date Given: Yes Immunizations Up to Date: No Travel Risk - International Travel Have you traveled outside of the country in past 3 weeks: No - Coronavirus Screening Are you exhibiting any of the following symptoms?: Yes Symptoms: Cough: New Onset, Headaches/Body Aches/Fatigue Close contact with a COVID-19 positive Pt in past 14-21 Days: No - Vaccine Status Have you recieved a Covid-19 vaccination: No - Review of Systems Constitutional: No Symptoms Eyes: No Symptoms Ears, Nose, & Throat: Ear Pain Respiratory: Cough Cardiac: No Symptoms Abdominal/Gastrointestinal: No Symptoms Genitourinary Symptoms: No Symptoms Musculoskeletal: No Symptoms Skin: No Symptoms Neurological: No Symptoms Psychological: No Symptoms Endocrine: No Symptoms Hematologic/Lymphatic: No Symptoms Immunological/Allergic: No Symptoms All Other Systems: Reviewed and Negative - Past Medical History Pertinent Past Medical History: Yes Neurological History: Migraines, Other ENT History: No Pertinent History Cardiac History: Congestive Heart Failure, High Cholesterol, Hypertension Respiratory History: COPD, Pulmonary Embolism Endocrine Medical History: Diabetes Type II Musculoskeletal History: Arthritis GI Medical History: Gallbladder Disease History: No Pertinent History Psycho-Social History: Anxiety, Depression Female Reproductive Disorders: Abnormal Uterine Bleeding, Fibroids Other Medical History: 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 Filter placed 2011 yr ago after PE, rhinoplasty and multiple left knee repairs, cyst removed from [facility]. 3 abscesses drained in last 1.5 years. 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 - Social History Smoking Status: Never smoker Exposure to second hand smoke: No Drug Use: none Patient Lives Alone: No - Nursing Vital Signs Nursing Vital Signs: Initial Vital Signs Temperature 97.7 F 10/25/22 22:46 Pulse Rate 110 H 10/25/22 22:46 Respiratory Rate 18 10/25/22 22:46 Blood Pressure 180/92 10/25/22 22:46 O2 Sat by Pulse Oximetry 93 L 10/25/22 22:46 Pain Scale Pain Intensity 10 - Physical Exam General Appearance: mild distress Eye Exam: PERRL/EOMI, eyes nml inspection Ears, Nose, Throat Exam: pharynx normal, moist mucous membranes, other Neck Exam: normal inspection (Left TM inflamed ) Respiratory Exam: rhonchi, No wheezing, No stridor Cardiovascular Exam: regular rate/rhythm, normal heart sounds Gastrointestinal/Abdomen Exam: soft, normal bowel sounds Pelvic Exam: not done Rectal Exam: not done Back Exam: normal inspection Extremity Exam: normal inspection Neurologic Exam: alert, oriented x 3, cooperative Skin Exam: normal color, warm SpO2 Interpretation: normal SpO2: 93 O2 Delivery: Room Air - Course Nursing assessment & vital signs reviewed: Yes Ordered Tests: Medication Summary Discontinued Medications Generic Name Dose Route Start Last Admin Trade Name Freq PRN Reason Stop Dose Admin Hydrocodone Bitart/Acetaminophen 1 tablet 10/25/22 23:18 10/25/22 23:28 Hydrocodone/Acetamin 10-325 Mg Tablet PO 10/30/22 23:17 1 tablet Q4H PRN PRN Administration PAIN Ceftriaxone Sodium 1,000 mg 10/25/22 23:17 10/25/22 23:27 Ceftriaxone Sodium 1000 Mg Inj Vial IM 10/25/22 23:18 1,000 mg STAT ONE Administration Ceftriaxone Sodium Confirm 10/25/22 23:25 Ceftriaxone Sodium 1000 Mg Inj Vial Administered 10/25/22 23:26 Dose 1,000 mg .ROUTE .STK-MED ONE Morphine Sulfate 4 mg 10/25/22 23:51 10/25/22 23:56 Morphine Sulfate 4 Mg/Ml Injection IM 10/25/22 23:52 4 mg STAT ONE Administration Morphine Sulfate Confirm 10/25/22 23:54 Morphine Sulfate 4 Mg/Ml Injection Administered 10/25/22 23:55 Dose 4 mg .ROUTE .STK-MED ONE Ondansetron HCl 4 mg 10/25/22 23:52 04/16/23 23:55 Zofran 4 Mg/Udtablet Orally Disintegrating PO 10/25/22 23:53 4 mg STAT ONE Administration Ondansetron HCl Confirm 10/25/22 23:54 Zofran 4 Mg/Udtablet Orally Disintegrating Administered 10/25/22 23:55 Dose 4 mg .ROUTE .STK-MED ONE - Progress Progress: unchanged Air Movement: good Progress Note: 10/26/22 07:16 Patient declined any labs or CXR. She primarily wanted pain med for the left earache. TM inflamed and may have small perf. Abx and pain med given here. Rx oral abx and abx ear drops. F/U with PCP. Blood Culture(s) Obtained: No Antibiotics given: Yes Counseled pt/family regarding: diagnosis, need for follow-up - Departure Departure Disposition: Home Clinical Impression: Bronchitis Otitis media Qualifiers: Otitis media type: suppurative Chronicity: acute Laterality: left Recurrence: non-recurrent Spontaneous tympanic membrane rupture: with spontaneous rupture Qualified Code(s): H66.012 - Acute suppurative otitis media with spontaneous rupture of ear drum, left ear Condition: Stable Critical Care Time: No Referrals: AMPARO JOHNSTON DO [Primary Care Provider] - Follow up/PCP as directed Instructions: Cough, Adult (DC), Ear Infection ED Additional Instructions: Antibiotic and OTC med as helpful. Recheck with PCP. Use a cotton ball in the ear after the drops. Prescriptions: Cefuroxime Axetil 500 mg [Ceftin 500 mg] 500 mg PO BID #20 tablet Ofloxacin Otic 5 ml [Floxin Otic 5 ML] 5 drops DROPS BID 10 Days #1 applic
[2022-10-25] MEDS ORDERED: Rocephin 1000 MG INJ IM ONE (23:17)
[2022-10-25] MEDS ORDERED: HYDROCODONE-ACETAMIN 10-325 MG PO PRN (23:18)
[2022-10-25] MEDS ORDERED: Rocephin 1000 MG INJ ONE (23:25)
[2022-10-25] MEDS ORDERED: MORPHINE SULFATE 4 MG INJ IM ONE (23:51)
[2022-10-25] MEDS ORDERED: ZOFRAN ODT 4 MG PO ONE (23:52)
[2022-10-25] MEDS ORDERED: MORPHINE SULFATE 4 MG INJ ONE (23:54)
[2022-10-25] MEDS ORDERED: ZOFRAN ODT 4 MG ONE (23:54)
[2022-10-26 00:03] VITALS: BP 126/93; PULSE 112
[2022-10-26 07:18] VITALS: O2SAT 93
== END 2022-10-26 00:19 | disposition home or self-care (01) ==
LOC: ED 22:41
DX: H66.012 Acute suppurative otitis media with spontaneous rupture of ear drum, left ear (principal); J40 Bronchitis, not specified as acute or chronic; R05.1 Acute cough; I11.0 Hypertensive heart disease with heart failure; I50.9 Heart failure, unspecified; E78.5 Hyperlipidemia, unspecified; E11.9 Type 2 diabetes mellitus without complications; Z79.01 Long term (current) use of anticoagulants; Z79.4 Long term (current) use of insulin; Z79.899 Other long term (current) drug therapy; Z28.310 Unvaccinated for COVID-19
CPT/HCPCS: 96372; 99283; J0696; J2270; Q0162; A9270-GY

== ENCOUNTER 2023-06-06 14:32 | Emergency (ER) | payer OTHER ==
[2023-06-06 14:57] VITALS: TEMP 97.4
[2023-06-06] MEDS ORDERED: NORCO 5/325 MG PO ONE (15:22)
[2023-06-06] MEDS ORDERED: Norflex 60 MG/2 ML IM ONE (15:23)
--- NOTE | 2023-06-06 15:25 | ERPHSYRPT ---
- History of Present Illness Time Seen by Provider: 06/06/23 15:20 Source: patient Exam Limitations: no limitations Patient Subjective Stated Complaint: here for a fall in shower Triage Nursing Assessment: pt here for a fall on in the shower , she now co pain to left scapula, and left buttock. no bruising or abrsions noted Physician History: 57 years old female with past medical history of congestive heart failure, type 2 diabetes. The patient is presenting to the emergency room accompanied by her with a chief complaint of pain around her left shoulder blade, left buttock. Last , 3 days from today she slipped in the bathtub falling backward hitting/landing on a fiberglass seat injuring her left posterior upper back around the shoulder blade and her left buttock. The patient has been taking Tylenol, ibuprofen without any relief. She also has history of PE currently she is on Eliquis she cannot take too much nonsteroidals. She denies any shortness of breath but it hurts with every breath she takes. She is ambulatory. Allergies/Adverse Reactions: escitalopram oxalate [From Lexapro] Allergy (Severe, Verified 06/06/23 15:00) Itching gabapentin Allergy (Severe, Verified 06/06/23 15:00) Vomiting adhesive Allergy (Intermediate, Verified 06/06/23 15:00) Blisters lisinopril Allergy (Intermediate, Verified 06/06/23 15:00) Skin Irritation hydromorphone HCl [From Dilaudid] Allergy (Mild, Verified 06/06/23 15:00) VISUAL DISTURBANCE insulin regular [From Humulin R Regular U-100 Insuln] Allergy (Mild, Verified 06/06/23 15:00) All types of insulin per patient bee stings Allergy (Severe, Uncoded 06/06/23 15:00) Swelling bee stings insulin Allergy (Uncoded 06/06/23 15:00) Home Medications: Apixaban [Eliquis 5 mg Tablet] 5 mg PO BID 05/06/17 [History] Potassium Chloride 20 Meq [Klor-Con 20 MEQ] 20 meq PO DAILY 05/06/17 [History] Cholecalciferol (Vitamin D3) [Vitamin D3] 50,000 unit PO WEEKLY 11/14/20 [H istory] Spironolactone 25 mg [Aldactone 25 MG] 25 mg PO DAILY 11/14/20 [History] Bumetanide 1 mg [Bumex 1 mg] 2 mg PO BID 04/28/21 [History] Insulin Glargine,Hum.rec.anlog [Toujeo Solostar] 32 unit SQ BID 10/25/22 [History] Insulin Glulisine [Apidra Solostar] 100 unit SQ UD 10/25/22 [History] Hx Tetanus, Diphtheria Vaccination/Date Given: No Hx Influenza Vaccination/Date Given: No Hx Pneumococcal Vaccination/Date Given: Yes Immunizations Up to Date: Yes Travel Risk - International Travel Have you traveled outside of the country in past 3 weeks: No - Coronavirus Screening Are you exhibiting any of the following symptoms?: No Close contact with a COVID-19 positive Pt in past 14-21 Days: No - Vaccine Status Have you recieved a Covid-19 vaccination: No - Review of Systems Constitutional: No Fever, No Chills Eyes: No Symptoms Ears, Nose, & Throat: No Symptoms Respiratory: No Cough, No Dyspnea Cardiac: Chest Pain (Left upper posterior chest wall pain), No Edema, No Syncope Abdominal/Gastrointestinal: No Abdominal Pain, No Nausea, No Vomiting, No Diarrhea Genitourinary Symptoms: No Dysuria Musculoskeletal: Back Pain, Fall, Other (Left buttock pain), No Neck Pain Skin: No Rash Neurological: No Dizziness, No Focal Weakness, No Sensory Changes Psychological: No Symptoms Endocrine: No Symptoms All Other Systems: Reviewed and Negative - Past Medical History Pertinent Past Medical History: Yes Neurological History: Migraines, Other ENT History: No Pertinent History Cardiac History: Congestive Heart Failure, High Cholesterol, Hypertension Respiratory History: COPD, Pulmonary Embolism Endocrine Medical History: Diabetes Type II Musculoskeletal History: Arthritis GI Medical History: Gallbladder Disease History: No Pertinent History Psycho-Social History: Anxiety, Depression Female Reproductive Disorders: Abnormal Uterine Bleeding, Fibroids Other Medical History: 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 3 abscesses drained in last 1.5 years. 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 - Social History Smoking Status: Never smoker Exposure to second hand smoke: No Drug Use: none Patient Lives Alone: No - Nursing Vital Signs Nursing Vital Signs: Initial Vital Signs Temperature 97.4 F 06/06/23 14:56 Pulse Rate 100 H 06/06/23 14:56 Respiratory Rate 20 06/06/23 14:56 Blood Pressure 140/104 06/06/23 14:56 O2 Sat by Pulse Oximetry 94 L 06/06/23 14:56 Pain Scale Pain Intensity 9 - Physical Exam General Appearance: no apparent distress, alert Eye Exam: PERRL/EOMI, eyes nml inspection Neck Exam: normal inspection, non-tender, supple, full range of motion, No meningismus, No midline tenderness Respiratory Exam: normal breath sounds, chest tenderness, lungs clear, other (Left upper chest wall tenderness, around the left shoulder blade. Tenderness to the left buttock.), No respiratory distress Cardiovascular Exam: regular rate/rhythm, normal heart sounds Gastrointestinal Exam: soft, No tenderness, No mass Extremity Exam: normal inspection, normal range of motion, No calf tenderness, No pedal edema Neurologic Exam: alert, oriented x 3, cooperative, photo editor II-XII nml as tested, normal mood/affect, nml station & gait, sensation nml, No motor deficits Skin Exam: normal color, warm, dry, No rash SpO2: 94 - Course Nursing assessment & vital signs reviewed: Yes - Radiology Exams Chest X-ray Interpretation: Reviewed by me, Negative Ribs X-ray Interpretation: Reviewed by me, Other (Fracture of the left posterior third and fourth ribs.) Pelvis X-ray Interpretation: Reviewed by me, Negative Ordered Tests: Active Orders 24 hr Category Date Time Status CHEST 2 VIEWS (PA AND LAT) Stat Exams 06/06/23 16:04 Taken PELVIS (1 OR 2 VIEWS) Stat Exams 06/06/23 16:04 Taken RIBS UNILATERAL Stat Exams 06/06/23 16:04 Taken Medication Summary Discontinued Medications Generic Name Dose Route Start Last Admin Trade Name Freq PRN Reason Stop Dose Admin Hydrocodone Bitart/Acetaminophen 1 tab 06/06/23 15:22 06/06/23 15:32 Hydrocodone/Apap 5/325 1 Tab Tablet PO 06/06/23 15:23 1 tab STAT ONE Administration Hydrocodone Bitart/Acetaminophen Confirm 06/06/23 15:28 Hydrocodone/Apap 5/325 1 Tab Tablet Administered 06/06/23 15:29 Dose 1 tab .ROUTE .STK-MED ONE Hydromorphone HCl 1 mg 06/06/23 17:05 06/06/23 17:11 Hydromorphone 1 Mg/1ml Inj IM 06/06/23 17:06 Not Given STAT ONE Hydromorphone HCl Confirm 06/06/23 17:08 Hydromorphone 1 Mg/1ml Inj Administered 06/06/23 17:09 Dose 1 mg .ROUTE .STK-MED ONE Morphine Sulfate 5 mg 06/06/23 17:28 06/06/23 17:33 Morphine Sulfate 10 Mg/Ml Injection IM 06/06/23 17:29 5 mg STAT ONE Administration Morphine Sulfate Confirm 06/06/23 17:30 Morphine Sulfate 10 Mg/Ml Injection Administered 06/06/23 17:31 Dose 10 mg .ROUTE .STK-MED ONE Orphenadrine Citrate 60 mg 06/06/23 15:23 06/06/23 15:33 Orphenadrine Citrate 60 Mg/2 Ml Vial IM 06/06/23 15:24 60 mg STAT ONE Administration Orphenadrine Citrate Confirm 06/06/23 15:28 Orphenadrine Citrate 60 Mg/2 Ml Vial Administered 06/06/23 15:29 Dose 60 mg .ROUTE .STK-MED ONE - Progress Progress Note: 06/06/23 15:10 57 years old female with past medical history of CHF, type 2 diabetes, PE. Presented to the emergency room complaining of pain around her left shoulder blade and left buttock. Last , 3 days from today she slipped on a wet bathtub landing backward hitting the upper back and left butt cheek on a built-in fiberglass chair in the bathtub. The patient has been taking Tylenol ibuprofen without much relief. Emergency room course and medical decision making: For the patient be given Clarkson 10 mg oral dose, Norflex 60 mg IM. Check x-ray of the left ribs and chest, x-ray of the pelvis. 1700 X-rays of the ribs revealed fracture left third and fourth rib no pneumothorax. The patient states that the pain medication did not help her she will be given Morphine 5 mg IM X1. 06/06/23 19:04 Patient states that her pain is down from 10 out of 10 to 7 out of 10 especially when she takes deep breaths. She seem to be resting comfortably in bed talking to her not in any distress She will be discharged home. Clarkson 10 mg every 6 hours as needed for severe pain Cyclobenzaprine 10 mg 3 times a day Follow-up with your family physician 2 to 3 days. - Departure Departure Disposition: Home Clinical Impression: Ribs, multiple fractures, Contusion of lower back and pelvis, initial encounter Condition: Stable Critical Care Time: No Referrals: AMPARO JOHNSTON DO [Primary Care Provider] - Follow up/PCP as directed Instructions: Contusion (DC) Additional Instructions: follow-up with family physician in 2 to 3 days. Follow-up as needed for any worsening symptoms. Ice/heat for comfort measures. Spirometer for breathing exercises Prescriptions: Cyclobenzaprine HCl 10 mg [Cyclobenzaprine 10 MG] 10 mg PO TID #20 tablet Oxycodone/APAP 5 mg/325 mg [Percocet Tablet 5/325Mg] 2 tab PO Q4-6HPRN PRN #12 tablet MDD 6 PRN Reason: Pain
[2023-06-06] MEDS ORDERED: Norflex 60 MG/2 ML ONE (15:28)
[2023-06-06] MEDS ORDERED: NORCO 5/325 MG ONE (15:28)
[2023-06-06 16:05] VITALS: PULSE 110; RESP 18
[2023-06-06] MEDS ORDERED: Hydromorphone 1 mg/ml Injection IM ONE (17:05)
[2023-06-06] MEDS ORDERED: Hydromorphone 1 mg/ml Injection ONE (17:08)
[2023-06-06 17:09] VITALS: O2SAT 94
[2023-06-06] MEDS ORDERED: MORPHINE SULFATE 10 MG/ML IM ONE (17:28)
[2023-06-06] MEDS ORDERED: MORPHINE SULFATE 10 MG/ML ONE (17:30)
[2023-06-06 18:50] VITALS: BP 106/84
[2023-06-06] MEDS ORDERED: PERCOCET TABLET 5/325MG PO ONE (19:41)
[2023-06-06] MEDS ORDERED: PERCOCET TABLET 5/325MG ONE (19:53)
--- NOTE | 2023-06-06 21:19 | XRAY ---
Indication: Pain following fall. Comparison: November 23, 2021 PA/lateral chest remains clear again with chronic right hemidiaphragm elevation and bilateral calcified granulomas. Heart not enlarged. Bony thorax demonstrates new left rib fractures reported separately.
--- NOTE | 2023-06-06 21:21 | XRAY ---
Indication: Pain following fall. Comparison: None 2 view left ribs demonstrates mildly displaced lateral 4/5/6 rib fractures without pneumothorax/hemothorax. Incidental moderate left AC degenerative arthropathy and bilateral pulmonary calcified granulomas.
--- NOTE | 2023-06-06 21:21 | XRAY ---
Indication: Pain following fall. Comparison: None Single AP pelvis demonstrates osteopenia, mild lower lumbar degenerative spondylosis, and tiny pelvic phleboliths. No other bony, articular, or soft tissue abnormalities.
== END 2023-06-06 20:07 | disposition home or self-care (01) ==
LOC: ED 14:32
DX: S22.42XA Multiple fractures of ribs, left side, initial encounter for closed fracture (principal); S30.0XXA Contusion of lower back and pelvis, initial encounter; W18.2XXA Fall in (into) shower or empty bathtub, initial encounter; Y93.E1 Activity, personal bathing and showering; Y92.002 Bathroom of unspecified non-institutional (private) residence as the place of occurrence of the external cause; E11.9 Type 2 diabetes mellitus without complications; E78.5 Hyperlipidemia, unspecified; I11.0 Hypertensive heart disease with heart failure; I50.9 Heart failure, unspecified; Z79.01 Long term (current) use of anticoagulants; Z79.4 Long term (current) use of insulin; Z79.891 Long term (current) use of opiate analgesic; Z79.899 Other long term (current) drug therapy; Z28.310 Unvaccinated for COVID-19
CPT/HCPCS: 71046; 71100; 72170; 96372; 99284; J1170; J2270; J2360; A9270-GY

== ENCOUNTER 2024-11-09 00:10 | Emergency (ER) | payer OTHER ==
--- NOTE | 2024-11-09 00:27 | ERPHSYRPT ---
- History of Present Illness Time Seen by Provider: 11/09/24 00:27 Source: patient, family Exam Limitations: clinical condition Physician History: This is a morbidly obese white female patient who arrives by private vehicle accompanied by family and is a patient Dr. George with the complaint of altered mental status, abdominal pain, nausea, vomiting, diarrhea. Patient has not eaten well or drink fluids well in last 2 to 3 days. Patient began having dry heaves followed by small amounts of emesis this afternoon and into the evening. She is lethargic and weak. She is slow to respond. The abdominal pain is diffuse. Her blood sugar on arrival to emergency department is 475. Patient has multiple medical issues including history of pulmonary embolus and is on Eliquis, history of CHF, COPD, hyperlipidemia, hypertension, diabetes, migraine headaches, anxiety/depression. Timing/Duration: day(s) (2 to 3 days), worse (Symptoms worse today) Severity: moderate Associated Symptoms: nausea, vomiting, abdominal pain, loss of appetite, weakness, No shortness of breath, No chest pain Allergies/Adverse Reactions: escitalopram oxalate [From Lexapro] Allergy (Severe, Verified 11/09/24 00:46) Itching gabapentin Allergy (Severe, Verified 11/09/24 00:46) Vomiting adhesive Allergy (Intermediate, Verified 11/09/24 00:46) Blisters lisinopril Allergy (Intermediate, Verified 11/09/24 00:46) Skin Irritation hydromorphone HCl [From Dilaudid] Allergy (Mild, Verified 11/09/24 00:46) VISUAL DISTURBANCE insulin regular [From Humulin R Regular U-100 Insuln] Allergy (Mild, Verified 11/09/24 00:46) All types of insulin per patient bee stings Allergy (Severe, Uncoded 11/09/24 00:46) Swelling bee stings insulin Allergy (Uncoded 11/09/24 00:46) Home Medications: Apixaban [Eliquis 5 mg Tablet] 5 mg PO BID 05/06/17 [History] Cholecalciferol (Vitamin D3) [Vitamin D3] 50,000 unit PO WEEKLY 11/14/20 [History] Spironolactone 25 mg [Aldactone 25 MG] 25 mg PO DAILY 11/14/20 [History] Bumetanide 1 mg [Bumex 1 mg] 2 mg PO BID 04/28/21 [History] Insulin Glulisine [Apidra Solostar] 100 unit SQ UD 10/25/22 [History] Atorvastatin Calcium 20 mg PO DAILY 11/09/24 [History] Cetirizine HCl [All Day Allergy Relief] 10 mg PO DAILY 11/09/24 [History] Famotidine 40 mg PO DAILY PRN PRN 11/09/24 [History] Leflunomide 20 mg PO DAILY 11/09/24 [History] Metoprolol Succinate 50 mg [Toprol Xl 50 MG] 50 mg PO BID 11/09/24 [History] Promethazine HCl 25 mg PO DAILY PRN PRN 11/09/24 [History] Tizanidine HCl 4 mg PO DAILY 11/09/24 [History] Tramadol HCl 50 mg [Ultram 50 mg] 50 mg PO DAILY PRN PRN 11/09/24 [History] Hx Tetanus, Diphtheria Vaccination/Date Given: No Hx Influenza Vaccination/Date Given: No Hx Pneumococcal Vaccination/Date Given: Yes Travel Risk - International Travel Have you traveled outside of the country in past 3 weeks: No - Emerging Infectious Disease Are you exhibiting symptoms associated with any current EIDs: Yes Symptoms: Abdominal Pain, Diarrhea, Vomitting - Review of Systems Constitutional: Weakness Eyes: No Symptoms Ears, Nose, & Throat: No Symptoms Respiratory: No Symptoms Cardiac: No Symptoms Abdominal/Gastrointestinal: Abdominal Pain, Nausea, Vomiting, Diarrhea, Appetite Changes Genitourinary Symptoms: No Symptoms Musculoskeletal: No Symptoms Skin: No Symptoms Neurological: No Symptoms, Lethargy (Mild) Psychological: No Symptoms Endocrine: No Symptoms Hematologic/Lymphatic: No Symptoms Immunological/Allergic: No Symptoms All Other Systems: Reviewed and Negative - Past Medical History Pertinent Past Medical History: Yes Neurological History: Migraines, Other ENT History: No Pertinent History Cardiac History: Congestive Heart Failure, High Cholesterol, Hypertension Respiratory History: COPD, Pulmonary Embolism Endocrine Medical History: Diabetes Type II Musculoskeletal History: Arthritis GI Medical History: Gallbladder Disease History: No Pertinent History Psycho-Social History: Anxiety, Depression Female Reproductive Disorders: Abnormal Uterine Bleeding, Fibroids Other Medical History: 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 3 abscesses drained in last 1.5 years. 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 - Social History Smoking Status: Never smoker Exposure to second hand smoke: No Drug Use: none Patient Lives Alone: No - Nursing Vital Signs Nursing Vital Signs: Initial Vital Signs Temperature 98.8 F 11/09/24 00:11 Pulse Rate 137 H 11/09/24 00:11 Respiratory Rate 38 H 11/09/24 00:11 Blood Pressure 152/87 11/09/24 00:11 O2 Sat by Pulse Oximetry 93 L 11/09/24 00:11 Pain Scale Pain Intensity 10 - Physical Exam General Appearance: mild distress, alert, anxiety, lethargy (Mild), obese Eye Exam: PERRL/EOMI, eyes nml inspection Ears, Nose, Throat Exam: normal ENT inspection, moist mucous membranes Neck Exam: normal inspection, non-tender, supple, full range of motion Respiratory Exam: normal breath sounds, lungs clear, airway intact, No chest tenderness, No respiratory distress Cardiovascular Exam: regular rate/rhythm, normal heart sounds, normal peripheral pulses Gastrointestinal/Abdomen Exam: soft, normal bowel sounds, No tenderness Pelvic Exam: not done Rectal Exam: not done Back Exam: normal inspection, normal range of motion, No CVA tenderness, No vertebral tenderness Extremity Exam: normal inspection, normal range of motion, pelvis stable Neurologic Exam: alert, oriented x 3, cooperative, consulting project director II-XII nml as tested, other (The patient shows no focal neurologic deficit. She is weak but she is able to help herself up out of a chair onto the bed.) Skin Exam: normal color, warm, dry Lymphatic Exam: No adenopathy SpO2 Interpretation: normal O2 Delivery: Room Air - Course Nursing assessment & vital signs reviewed: Yes EKG Interpreted by Me: RATE (138), Sinus Tach, NORMAL AXIS, NORMAL QRS, Other (Prolonged QT interval with a QTc of 535. No acute ischemia on today's twelve- lead EKG) Ordered Tests: Active Orders 24 hr Category Date Time Status Steam Conditioner Filling STAT Care 11/09/24 00:28 Active EKG-ER Only STAT Care 11/09/24 00:27 Active IV Insertion STAT Care 11/09/24 00:27 Active Pulse Oximetry (ED) STAT Care 11/09/24 00:27 Active Telemetry q4h Care 11/09/24 01:21 Completed ABDOMEN AND PELVIS W/0 CONTRAS [CT] Stat Exams 11/09/24 00:29 Completed HEAD WITHOUT CONTRAST [CT] Stat Exams 11/09/24 00:29 Completed BLOOD CULTURE Stat Lab 11/09/24 00:48 Received CBC W DIFF Stat Lab 11/09/24 00:48 Completed CMP Stat Lab 11/09/24 00:48 Completed CULTURE,URINE Stat Lab 11/09/24 01:54 Received Lactic Acid Stat Lab 11/09/24 01:10 Completed Lactic Acid Stat Lab 11/09/24 03:11 Completed MAGNESIUM Stat Lab 11/09/24 00:48 Completed MONO SCREEN Stat Lab 11/09/24 00:48 Completed NT PRO BNPII Stat Lab 11/09/24 00:48 Completed POCT GLUCOSE Stat Lab 11/09/24 01:06 Completed UA W/RFX UR CULTURE Stat Lab 11/09/24 01:54 Completed Medication Summary Generic Name Dose Route Start Last Admin Trade Name Freq PRN Reason Stop Dose Admin Sodium Chloride 1,000 mls @ 150 mls/hr 11/09/24 00:30 11/09/24 04:20 Sodium Chloride 0.9% 1000 Ml IV 12/09/24 00:29 Infused .[id number] KAREN Infusion Sodium Chloride 500 mls @ 500 mls/hr 11/09/24 04:11 11/09/24 04:19 Sodium Chloride 0.9% 500 Ml IV 11/09/24 05:10 500 mls/hr .Q1H ONE Administration Discontinued Medications Generic Name Dose Route Start Last Admin Trade Name Freq PRN Reason Stop Dose Admin Diphenhydramine HCl 25 mg 11/09/24 00:53 11/09/24 01:13 Diphenhydramine Hcl 50 Mg/Ml Vial IV 11/09/24 00:54 25 mg STAT ONE Administration Diphenhydramine HCl Confirm 11/09/24 01:12 Diphenhydramine Hcl 50 Mg/Ml Vial Administered 11/09/24 01:13 Dose 50 mg .ROUTE .STK-MED ONE Fentanyl Citrate 25 mcg 11/09/24 03:08 11/09/24 03:37 Fentanyl Citrate 100 Mcg/2 Ml* Vial IV 11/09/24 03:09 25 mcg STAT ONE Administration Fentanyl Citrate Confirm 11/09/24 03:35 Fentanyl Citrate 100 Mcg/2 Ml* Vial Administered 11/09/24 03:36 Dose 100 mcg .ROUTE .STK-MED ONE Potassium Chloride 20 meq in 100 mls @ 50 mls/hr 11/09/24 01:21 11/09/24 03:30 Potassium Chloride 20 Meq In Water 100ml IV 11/09/24 03:20 Infused STAT ONE Infusion Potassium Chloride Confirm 11/09/24 01:29 Potassium Chloride 20 Meq In Water 100ml Administered 11/09/24 01:30 Dose 100 mls @ ud IV .STK-MED ONE Magnesium Sulfate/Water 2 gm in 50 mls @ 100 mls/hr 11/09/24 01:30 11/09/24 02:03 Magnesium Sulf 2 G/50 Ml Bag IV 11/09/24 01:59 Not Given ONCE ONE Magnesium Sulfate/Dextrose Confirm 11/09/24 01:57 Magnesium 1 Gm / 100 Ml D5w Administered 11/09/24 01:58 Dose 100 mls @ ud IV .STK-MED ONE Magnesium Sulfate/Dextrose 100 mls @ 100 mls/hr 11/09/24 02:02 11/09/24 03:04 Magnesium 1 Gm / 100 Ml D5w IV 11/09/24 03:01 Infused Q1H STA Infusion Ceftriaxone Sodium 1 gm in 100 mls @ 200 mls/hr 11/09/24 03:02 11/09/24 04:20 Rocephin 1 Gm / 100 Ml Nacl IV 11/09/24 03:31 Infused STAT ONE Infusion Magnesium Sulfate/Dextrose Confirm 11/09/24 03:02 Magnesium 1 Gm / 100 Ml D5w Administered 11/09/24 03:03 Dose 100 mls @ ud IV .STK-MED ONE Ceftriaxone Sodium Confirm 11/09/24 03:36 Rocephin 1 Gm / 100 Ml Nacl Administered 11/09/24 03:37 Dose 1 gm in 100 mls @ ud IV .STK-MED ONE Sodium Chloride Confirm 11/09/24 04:18 Sodium Chloride 0.9% 500 Ml Administered 11/09/24 04:19 Dose 500 mls @ ud IV .STK-MED ONE Insulin Human Regular 15 unit 11/09/24 03:37 11/09/24 04:19 Insulin Regular, Human 1 Unit IV 11/09/24 03:38 15 unit STAT ONE Administration Insulin Human Regular Confirm 11/09/24 04:18 Insulin Regular, Human 1 Unit Administered 11/09/24 04:19 Dose 15 unit .ROUTE .STK-MED ONE Ondansetron HCl 4 mg 11/09/24 00:27 11/09/24 00:46 Ondansetron Hcl 4 Mg/2 Ml Vial IV 11/09/24 00:28 Not Given STAT ONE Ondansetron HCl Confirm 11/09/24 00:38 Ondansetron Hcl 4 Mg/2 Ml Vial Administered 11/09/24 00:39 Dose 4 mg .ROUTE .STK-MED ONE Pantoprazole Sodium 40 mg 11/09/24 00:30 11/09/24 00:40 Pantoprazole 40 Mg Vial IV 11/09/24 00:31 40 mg STAT ONE Administration Pantoprazole Sodium Confirm 11/09/24 00:38 Pantoprazole 40 Mg Vial Administered 11/09/24 00:39 Dose 40 mg IV .STK-MED ONE Lab/Rad Data: Laboratory Result Diagrams 11/09/24 00:48 11/09/24 00:48 Laboratory Results 11/09/24 11/09/24 11/09/24 Range/Units 03:11 01:54 01:10 WBC (3.98-10.04) x10^3/uL RBC (3.93-5.22) x10^6/uL Hgb (11.2-15.7) g/dL Hct (34.1-44.9) % MCV (79.4-94.8) fL MCH (25.6-32.2) pg MCHC (32.2-35.5) g/dL RDW (11.7-14.4) % Plt Count (182-369) x10^3/uL MPV (9.4-12.3) fL Gran % (34.0-71.1) % Immature Gran % (Auto) (0.001-0.429) % Nucleat RBC Rel Count (0.00-0.2) % Eos # (Auto) (0.04-0.36) x10^3/uL Immature Gran # (Auto) (0.001-0.031) x10^3u/L Absolute Lymphs (auto) (1.18-3.74) x10^3/uL Absolute Monos (auto) (0.24-0.86) x10^3/uL Absolute Nucleated RBC (0.00-0.012) x10^3u/L Lymphocytes % (19.3-51.7) % Monocytes % (4.7-12.5) % Eosinophils % (0.7-5.8) % Basophils % (0.1-1.2) % Absolute Granulocytes (1.56-6.13) x10^3/uL Basophils # (0.01-0.08) x10^3/uL Sodium (135-145) mmol/L Potassium (3.5-5.1) mmol/L Chloride (98-107) mmol/L Carbon Dioxide (22-30) mmol/L Anion Gap (5-15) MEQ/L BUN (7-17) mg/dL Creatinine (0.52-1.04) mg/dL Estimated GFR ML/MIN Glucose (74-106) mg/dL POC Glucometer (74 to 106) mg/dL Lactic Acid 6.3 H 9.0 H (0.4-2.0) Calcium (8.4-10.2) mg/dL Magnesium (1.6-2.3) mg/dL Total Bilirubin (0.2-1.3) mg/dL AST (14-36) U/L ALT (0-35) U/L Alkaline Phosphatase (38-126) U/L Ammonia (9-30) umol/L NT-Pro-B Natriuret Pep (<300) pg/mL Serum Total Protein (6.3-8.2) g/dL Albumin (3.5-5.0) g/dL Urine Color Yellow (Yellow) Urine Appearance Cloudy A (Clear) Urine pH 8.0 (4.6-8.0) Ur Specific [place] 1.020 (1.005-1.030) Urine Protein 100 A (Negative) Urine Glucose (UA) >=1000 A (Negative) mg/dL Urine Ketones Trace A (Negative) Urine Blood Large A (Negative) Urine Nitrite Negative (Negative) Urine Bilirubin Negative (Negative) Urine Urobilinogen 0.2 (0.2) mg/dL Ur Leukocyte Esterase Moderate A (Negative) U Hyaline Cast (Auto) None Seen (0-2) /LPF Urine Microscopic RBC 0-2 (0-5) /HPF Urine Microscopic WBC >100 A (0-5) /HPF Ur Epithelial Cells None Seen (None Seen) /HPF Urine Bacteria Many A (None Seen) /HPF Urine Culture Reflexed ORDERED SEPARATELY (NO) Monoscreen (NEGATIVE) Influenza Type A Ag (NEGATIVE) Influenza Type B Ag (NEGATIVE) RSV (PCR) (NEGATIVE) SARS-CoV-2 (PCR) (NEGATIVE) 11/09/24 11/09/24 11/09/24 Range/Units 01:06 00:48 00:48 WBC (3.98-10.04) x10^3/uL RBC (3.93-5.22) x10^6/uL Hgb (11.2-15.7) g/dL Hct (34.1-44.9) % MCV (79.4-94.8) fL MCH (25.6-32.2) pg MCHC (32.2-35.5) g/dL RDW (11.7-14.4) % Plt Count (182-369) x10^3/uL MPV (9.4-12.3) fL Gran % (34.0-71.1) % Immature Gran % (Auto) (0.001-0.429) % Nucleat RBC Rel Count (0.00-0.2) % Eos # (Auto) (0.04-0.36) x10^3/uL Immature Gran # (Auto) (0.001-0.031) x10^3u/L Absolute Lymphs (auto) (1.18-3.74) x10^3/uL Absolute Monos (auto) (0.24-0.86) x10^3/uL Absolute Nucleated RBC (0.00-0.012) x10^3u/L Lymphocytes % (19.3-51.7) % Monocytes % (4.7-12.5) % Eosinophils % (0.7-5.8) % Basophils % (0.1-1.2) % Absolute Granulocytes (1.56-6.13) x10^3/uL Basophils # (0.01-0.08) x10^3/uL Sodium (135-145) mmol/L Potassium (3.5-5.1) mmol/L Chloride (98-107) mmol/L Carbon Dioxide (22-30) mmol/L Anion Gap (5-15) MEQ/L BUN (7-17) mg/dL Creatinine (0.52-1.04) mg/dL Estimated GFR ML/MIN Glucose (74-106) mg/dL POC Glucometer 470 H (74 to 106) mg/dL Lactic Acid (0.4-2.0) Calcium (8.4-10.2) mg/dL Magnesium (1.6-2.3) mg/dL Total Bilirubin (0.2-1.3) mg/dL AST (14-36) U/L ALT (0-35) U/L Alkaline Phosphatase (38-126) U/L Ammonia < 9 L (9-30) umol/L NT-Pro-B Natriuret Pep (<300) pg/mL Serum Total Protein (6.3-8.2) g/dL Albumin (3.5-5.0) g/dL Urine Color (Yellow) Urine Appearance (Clear) Urine pH (4.6-8.0) Ur Specific [place] (1.005-1.030) Urine Protein (Negative) Urine Glucose (UA) (Negative) mg/dL Urine Ketones (Negative) Urine Blood (Negative) Urine Nitrite (Negative) Urine Bilirubin (Negative) Urine Urobilinogen (0.2) mg/dL Ur Leukocyte Esterase (Negative) U Hyaline Cast (Auto) (0-2) /LPF Urine Microscopic RBC (0-5) /HPF Urine Microscopic WBC (0-5) /HPF Ur Epithelial Cells (None Seen) /HPF Urine Bacteria (None Seen) /HPF Urine Culture Reflexed (NO) Monoscreen (NEGATIVE) Influenza Type A Ag NEGATIVE (NEGATIVE) Influenza Type B Ag NEGATIVE (NEGATIVE) RSV (PCR) NEGATIVE (NEGATIVE) SARS-CoV-2 (PCR) NEGATIVE (NEGATIVE) 11/09/24 11/09/24 11/09/24 Range/Units 00:48 00:48 00:48 WBC 6.1 (3.98-10.04) x10^3/uL RBC 5.31 H (3.93-5.22) x10^6/uL Hgb 14.6 (11.2-15.7) g/dL Hct 44.5 (34.1-44.9) % MCV 83.8 (79.4-94.8) fL MCH 27.5 (25.6-32.2) pg MCHC 32.8 (32.2-35.5) g/dL RDW 12.9 (11.7-14.4) % Plt Count 184 (182-369) x10^3/uL MPV 11.5 (9.4-12.3) fL Gran % 76.0 H (34.0-71.1) % Immature Gran % (Auto) 0.7 H (0.001-0.429) % Nucleat RBC Rel Count 0.0 (0.00-0.2) % Eos # (Auto) 0.30 (0.04-0.36) x10^3/uL Immature Gran # (Auto) 0.04 H (0.001-0.031) x10^3u/L Absolute Lymphs (auto) 1.01 L (1.18-3.74) x10^3/uL Absolute Monos (auto) 0.07 L (0.24-0.86) x10^3/uL Absolute Nucleated RBC 0.00 (0.00-0.012) x10^3u/L Lymphocytes % 16.5 L (19.3-51.7) % Monocytes % 1.1 L (4.7-12.5) % Eosinophils % 4.9 (0.7-5.8) % Basophils % 0.8 (0.1-1.2) % Absolute Granulocytes 4.65 (1.56-6.13) x10^3/uL Basophils # 0.05 (0.01-0.08) x10^3/uL Sodium 130 L (135-145) mmol/L Potassium 2.9 L* (3.5-5.1) mmol/L Chloride 90 L (98-107) mmol/L Carbon Dioxide 17 L (22-30) mmol/L Anion Gap 26.2 H (5-15) MEQ/L BUN 18 H (7-17) mg/dL Creatinine 1.67 H (0.52-1.04) mg/dL Estimated GFR 34.6 ML/MIN Glucose 494 H (74-106) mg/dL POC Glucometer (74 to 106) mg/dL Lactic Acid (0.4-2.0) Calcium 8.6 (8.4-10.2) mg/dL Magnesium 1.4 L (1.6-2.3) mg/dL Total Bilirubin 1.70 H (0.2-1.3) mg/dL AST 66 H (14-36) U/L ALT 56 H (0-35) U/L Alkaline Phosphatase 219 H (38-126) U/L Ammonia (9-30) umol/L NT-Pro-B Natriuret Pep 1480 (<300) pg/mL Serum Total Protein 6.8 (6.3-8.2) g/dL Albumin 3.9 (3.5-5.0) g/dL Urine Color (Yellow) Urine Appearance (Clear) Urine pH (4.6-8.0) Ur Specific [place] (1.005-1.030) Urine Protein (Negative) Urine Glucose (UA) (Negative) mg/dL Urine Ketones (Negative) Urine Blood (Negative) Urine Nitrite (Negative) Urine Bilirubin (Negative) Urine Urobilinogen (0.2) mg/dL Ur Leukocyte Esterase (Negative) U Hyaline Cast (Auto) (0-2) /LPF Urine Microscopic RBC (0-5) /HPF Urine Microscopic WBC (0-5) /HPF Ur Epithelial Cells (None Seen) /HPF Urine Bacteria (None Seen) /HPF Urine Culture Reflexed (NO) Monoscreen NEGATIVE (NEGATIVE) Influenza Type A Ag (NEGATIVE) Influenza Type B Ag (NEGATIVE) RSV (PCR) (NEGATIVE) SARS-CoV-2 (PCR) (NEGATIVE) - Progress Progress: improved, re-examined Progress Note: 11/09/24 00:38 My medical decision making and the assignment of moderate complexity to this patient's medical issue today is based on review of the patient's past medical history, review the patient's medication list, reviewed patient drug allergy list, history present illness and physical findings on examination. The workup in this patient includes placement of a intravenous line, infusion of normal saline solution, CBC, CMP, amylase, lipase, urinalysis, viral swabs, monotest, twelve-lead EKG, BNP, troponin level, blood culture, CT scan of the head and CT scan of the abdomen pelvis, both without contrast. Differential diagnosis includes but is not limited to viral illness, dehydration, urinary tract infection, electrolyte abnormalities, arrhythmias, myocardial infarction, CHF, acute intracranial abnormality, colitis, diverticulitis, pancreatitis 11/09/24 03:22 I interpreted the patient's laboratory data results. Based on the laboratory data results, the patient has hypokalemia, hypomagnesemia, and a significant urinary tract infection causing urosepsis. The following CT scans were performed without contrast and were both interpreted by the radiologist and I reviewed the impressions: The CT scan of the head shows no acute intracranial abnormality. There are chronic microvascular changes. There is evidence of cerebral atrophy. The CT scan of the abdomen pelvis shows mild hydronephrosis and mild ureteral dilatation up to the level of the obstructing calculus. The calculus measures 2 mm in size. The location is just distal to the left pelvicureteral junction in the proximal ureter. 11/09/24 03:33 I obtained clarification from the patient and patient's spouse regarding her "allergy" to regular insulin. It is in fact not a true allergy. At times she gets a headache or nausea when she receives regular insulin 11/09/24 04:[address] Guerrero, our telehospitalist on-call at this time, I reviewed the patient's presenting complaint, physical findings, past medical history, workup performed and its results and the patient response to our interventions. He declines admission or placement in observation at this time. He is concerned that there has been a significant change in a short period of time in the patient's renal function in the face of a proximal ureteral calculus showing mild obstructive uropathy. She does have urosepsis, DKA and the electrolyte abnormalities. He feels the patient would be best served at a facility that has a urologist available to intervene/evaluate the left ureteral calculus as well as treat the patient's other medical findings of this emergency department evaluation. I spoke with the patient and the patient's spouse. They are considering leaving AGAINST MEDICAL ADVICE. I advised them against this. We did discuss the risk of her condition worsening and that the progress that we have made in her improvement could be rapidly setback. She is aware that she could from sepsis and her DKA. They are going to make the decision and let us know. In the interim, we will be providing her with the regular insulin as well as an additional 500 mL of normal saline 11/09/24 04:52 Spoke with the patient and her spouse and they would like to try [facility] in [place]. Nurse called that facility and they are not taking any urology patients. We contacted [facility] and they will see patients in need of urologic services. I spoke with Dr. Dolan, the hospitalist on-call and I reviewed the patient history, physical findings, chief complaint and the patient response to our workup. They accept this patient to transfer to their facility. Counseled pt/family regarding: lab results, diagnosis, rad results Medical Desision Making - Independent Historian Additional History obtained from: Spouse - Discussion of managment Care discussed with:: hospitalist Reviewed:: Test results, Need for additional workup - Diagnostic Testing Diagnostic test were ordered, analyzed, and reviewed by me: Yes Radiological Interpretation: Reviewed by me, Teleradiologist Report - Risk of complications The pt has a high risk of morbidity or mortality based on: Decision regarding hospitilization or escalation of hosp level of care - Departure Departure Disposition: Transfer Clinical Impression: Hypokalemia, Hypomagnesemia, Lactic acidemia, DKA (diabetic ketoacidosis), Left ureteral calculus, Sepsis, Prolonged Q-T interval on ECG Condition: Fair Critical Care Time: Yes Critical Care Time(excluding separately billable procedures): Critical 30-74 mins (55) Referrals: DUNG GEORGE DO [Primary Care Provider, [facility]] - Follow up/PCP as directed
[2024-11-09] MEDS ORDERED: Sodium Chloride 0.9% 1000 ML 1,000 ML ONE ×2 (00:38→05:17)
[2024-11-09] MEDS ORDERED: PROTONIX 40 MG IV IV ONE (00:38)
[2024-11-09] MEDS ORDERED: Zofran 4 MG/2 ML VIAL ONE (00:38)
[2024-11-09] MEDS: PROTONIX 40 MG IV IV ONE (00:40)
[2024-11-09] MEDS: Sodium Chloride 0.9% 1000 ML 1,000 ML IV SCH ×2 (00:41→06:00)
[2024-11-09 00:44] VITALS: TEMP 98.8
[2024-11-09] MEDS: Zofran 4 MG/2 ML VIAL IV ONE (00:46)
[2024-11-09 00:51] LABS: Absolute Neutrophil Ct (ANC) 4.65 x10^3/uL (1.56-6.13); BASOPHIL % 0.8 % (0.1-1.2); Basophil (Absolute #) 0.05 x10^3/uL (0.01-0.08); Eosinophil % 4.9 % (0.7-5.8); Hematocrit 44.5 % (34.1-44.9); Hemoglobin 14.6 g/dL (11.2-15.7); IMMATURE GRAN # 0.04 x10^3u/L (0.001-0.031); IMMATURE GRAN % 0.7 % (0.001-0.429); Lymphocyte (Absolute #) 1.01 x10^3/uL (1.18-3.74); Lymphocytes % 16.5 % (19.3-51.7); Mean Cell Volume 83.8 fL (79.4-94.8); Mean Corpuscular Hemoglobin 27.5 pg (25.6-32.2); Mean Corpuscular Hgb Concent. 32.8 g/dL (32.2-35.5); Mean Platelet Volume 11.5 fL (9.4-12.3); Monocyte (Absolute #) 0.07 x10^3/uL (0.24-0.86); Monocytes % 1.1 % (4.7-12.5); Platelet Count 184 x10^3/uL (182-369); Red Blood Count 5.31 x10^6/uL (3.93-5.22); Red Cell Distribution Width 12.9 % (11.7-14.4); White Blood Count 6.1 x10^3/uL (3.98-10.04)
[2024-11-09] MEDS ORDERED: BENADRYL 50 MG/ML ONE (01:12)
[2024-11-09] MEDS: BENADRYL 50 MG/ML IV ONE (01:13)
[2024-11-09 01:14] LABS: ALBUMIN 3.9 g/dL (3.5-5.0); ANION GAP 26.2 MEQ/L (5-15); BILIRUBIN,TOTAL 1.7 mg/dL (0.2-1.3); Calcium 8.6 mg/dL (8.4-10.2); Creatinine 1 1.67 mg/dL (0.52-1.04); EST GLOMERULAR FILTRATION RATE 34.6 ML/MIN; MAGNESIUM 1.4 mg/dL (1.6-2.3); Total Protein 6.8 g/dL (6.3-8.2)
[2024-11-09 01:20] LABS: Potassium 2.9 mmol/L (3.5-5.1)
[2024-11-09 01:28] LABS: INFLUENZA A NEGATIVE (NEGATIVE); INFLUENZA B NEGATIVE (NEGATIVE); RESPIRATORY SYNCTIAL VIRUS NEGATIVE (NEGATIVE); SARS-CoV-2 Xpert Express NEGATIVE (NEGATIVE)
[2024-11-09] MEDS ORDERED: POTASSIUM CHLORIDE 20 mEq IN WATER 100ML 100 ML IV ONE (01:29)
[2024-11-09] MEDS: POTASSIUM CHLORIDE 20 mEq IN WATER 100ML 20 MEQ/100 ML BAG IV ONE (01:30)
[2024-11-09] MEDS ORDERED: Magnesium 1 Gm / 100 Ml D5W*** 100 ML IV ONE ×2 (01:57→03:02)
[2024-11-09 02:03] LABS: Appearance Cloudy (Clear); Bilirubin Negative (Negative); Blood Large (Negative); Glucose, Urine >=1000 mg/dL (Negative); Ketones Trace (Negative); Leukocyte Esterase Moderate (Negative); Nitrite Negative (Negative); Protein,Urine Dip 100 (Negative); Urobilinogen 0.2 mg/dL (0.2)
[2024-11-09] MEDS: MAGNESIUM SULF 2 G/50 ML BAG 2 GM/50 ML PIGGYBACK IV ONE (02:03)
[2024-11-09] MEDS: Magnesium 1 Gm / 100 Ml D5W*** 100 ML IV STA (02:04)
--- NOTE | 2024-11-09 02:06 | XRAY ---
CLINICAL HISTORY: Altered mental status COMPARISON: None. TECHNIQUE: Multiple axial images are obtained from the skull base to the vertex without contrast. CT scan was performed according to ALARA (as low as reasonable achievable). FINDINGS: There is cerebral atrophy. No evidence of space occupying lesion, hemorrhage, edema, mass effect, midline shift, extra axial collection, or hydrocephalus is noted. Basal cisterns are symmetric and normal in size and configuration. There are scattered periventricular hypodensities as can be seen with chronic microvascular ischemic changes. The bernard-white matter differentiation is preserved. Visualized paranasal sinuses and mastoid air cells are well aerated. Orbital contents are within normal limits. Bony structures are intact. IMPRESSION: 1. No evidence of acute intracranial abnormality is demonstrated. 2. Chronic microvascular ischemic changes. 3. Cerebral atrophy. Electronically Signed by: Alfred Vernon MD. (11/09/2024 02:01:48 EDT)
--- NOTE | 2024-11-09 02:18 | XRAY ---
CLINICAL HISTORY: ABD pain; and/V/D COMPARISON: None. TECHNIQUE: Contiguous axial images were obtained from the level of the diaphragm to the pubic symphysis without intravenous or oral contrast. Coronal and sagittal reconstructions were likewise performed and indicated to increase the sensitivity for detecting clinically relevant pathology. CT scan was performed according to ALARA (as low as reasonable achievable). FINDINGS: The visualized lung bases show few small calcified granuloma. Evaluation of the abdominal and pelvic visceral organs is limited without intravenous contrast. The unenhanced liver, spleen, pancreas, and adrenal glands are grossly unremarkable. The gallbladder is removed. The kidneys are normal in size and attenuation, without obvious calcification. Both kidneys shows few tiny 2-4 mm sized calculi in mid and lower calyx Left side mild hydronephroureterosis up to an obstructing calculus of size 2 mm involving left proximal ureter, just distal to pelviureteric junction. No adenopathy or fluid collections are seen. No evidence of focal or diffuse bowel wall thickening or evidence of bowel obstruction is seen. No evidence of inflamed appendix. The aorta is normal in caliber. The urinary bladder is normal in contour. Pelvic viscera are grossly unremarkable. No aggressive appearing osseous lesions are identified. IVC filter is seen in situ. IMPRESSION: 1. Left kidney shows mild hydronephroureterosis up to an obstructing calculus of size 2 mm involving left proximal ureter, just distal to pelviureteric junction. 2. Both kidneys shows few tiny 2-4 mm sized calculi in mid and lower calyx Electronically Signed by: Alfred Vernon MD. (11/09/2024 02:14:48 EDT)
[2024-11-09 02:21] LABS: Bacteria Many /HPF (None Seen); Epithelial Cells None Seen /HPF (None Seen); RBC 0-2 /HPF (0-5); WBC >100 /HPF (0-5)
[2024-11-09 02:29] LABS: Hyaline Casts None Seen /LPF (0-2)
[2024-11-09] MEDS ORDERED: SUBLIMAZE 100 MCG/2 ML ONE ×2 (03:35→05:30)
[2024-11-09] MEDS ORDERED: ROCEPHIN 1 GM / 100 ML NaCl 1 GM/100 ML IVPB IV ONE (03:36)
[2024-11-09] MEDS: SUBLIMAZE 100 MCG/2 ML IV ONE ×2 (03:37→05:32)
[2024-11-09] MEDS: ROCEPHIN 1 GM / 100 ML NaCl 1 GM/100 ML IVPB IV ONE (03:38)
[2024-11-09] MEDS ORDERED: Sodium Chloride 0.9% 500 ML 500 ML IV ONE (04:18)
[2024-11-09] MEDS ORDERED: HUMULIN R ONE ×2 (04:18→06:02)
[2024-11-09] MEDS: Sodium Chloride 0.9% 500 ML 500 ML IV ONE (04:19)
[2024-11-09] MEDS: HUMULIN R IV ONE ×2 (04:19→06:02)
[2024-11-09 08:27] VITALS: BP 135/79; PULSE 104; RESP 22; O2SAT 94
== END 2024-11-09 08:27 | disposition short-term general hospital (02) ==
LOC: ED 00:10
DX: A41.9 Sepsis, unspecified organism (principal); N39.0 Urinary tract infection, site not specified; E87.6 Hypokalemia; E83.42 Hypomagnesemia; E87.20 Acidosis, unspecified; E11.10 Type 2 diabetes mellitus with ketoacidosis without coma; N20.1 Calculus of ureter; R94.31 Abnormal electrocardiogram [ECG] [EKG]; R10.9 Unspecified abdominal pain; R11.2 Nausea with vomiting, unspecified; R19.7 Diarrhea, unspecified; Z79.01 Long term (current) use of anticoagulants; Z79.4 Long term (current) use of insulin; Z79.891 Long term (current) use of opiate analgesic; Z79.899 Other long term (current) drug therapy
CPT/HCPCS: 0241U; 36415; 70450; 74176; 80053; 81001; 82140; 82947; 83605; 83735; 83880; 85025; 86308; 87040; 87077; 87086; 87186; 93005; 93041; 94760; 96361; 96365; 96366; 96367; 96368; 96375; 96376; 99291; 96374; 99285; J0696; J1200; J1815; J2405; J3010; J3475; J3480

== ENCOUNTER 2024-11-15 15:27 | Emergency (ER) | payer OTHER ==
--- NOTE | 2024-11-15 15:37 | ERPHSYRPT ---
- History of Present Illness Time Seen by Provider: 11/15/24 15:37 Historian: patient, family Exam Limitations: no limitations Physician History: This is a morbidly obese 59-year-old white female patient of Dr. George who was sent over to the emergency department from her office secondary to intermittent chest pain that is described as sharp that radiates into her left neck and left shoulder. The level of pain is a 3 out of 10. Patient did take 2 nitroglycerin at home today. She arrives via private vehicle. Patient was transferred from our facility on 11/09/2024 to [facility] for treatment of DKA, urosepsis and left ureteral calculus. She also had hypokalemia. Patient has had 2 negative cardiac cath in the past. She is a diabetic. She has a history of hypertension, migraine headaches, COPD, pulmonary embolus and hyperlipidemia. Patient is also had a [place] filter placed to help prevent pulmonary emboli. Timing/Duration: day(s) (2), intermittent Quality: sharpness Location: substernal, central Chest Pain Radiation: jaw (Left side of neck and jaw), neck (Left side of neck and jaw), arm (Left shoulder) Severity of Pain-Max: mild Severity of Pain-Current: mild Modifying Factors: Improves With: nothing Associated Symptoms: heartburn, No shortness of breath, No fever, No headache Prior Chest Pain/Cardiac Workup: cardiac cath Nitro Today/Relief: 0.4 mg x 2, provided at home Aspirin Treatment Today: 81 mg x 4, provided by ED Allergies/Adverse Reactions: escitalopram oxalate [From Lexapro] Allergy (Severe, Verified 11/09/24 00:46) Itching gabapentin Allergy (Severe, Verified 11/09/24 00:46) Vomiting adhesive Allergy (Intermediate, Verified 11/09/24 00:46) Blisters lisinopril Allergy (Intermediate, Verified 11/09/24 00:46) Skin Irritation hydromorphone HCl [From Dilaudid] Allergy (Mild, Verified 11/09/24 00:46) VISUAL DISTURBANCE insulin regular [From Humulin R Regular U-100 Insuln] Allergy (Mild, Verified 11/09/24 00:46) All types of insulin per patient bee stings Allergy (Severe, Uncoded 11/09/24 00:46) Swelling bee stings insulin Allergy (Uncoded 11/09/24 00:46) Home Medications: Apixaban [Eliquis 5 mg Tablet] 5 mg PO BID 05/06/17 [History] Cholecalciferol (Vitamin D3) [Vitamin D3] 50,000 unit PO WEEKLY 11/14/20 [History] Spironolactone 25 mg [Aldactone 25 MG] 25 mg PO DAILY 11/14/20 [History] Bumetanide 1 mg [Bumex 1 mg] 2 mg PO BID 04/28/21 [History] Insulin Glulisine [Apidra Solostar] 100 unit SQ UD 10/25/22 [History] Atorvastatin Calcium 20 mg PO DAILY 11/09/24 [History] Cetirizine HCl [All Day Allergy Relief] 10 mg PO DAILY 11/09/24 [History] Famotidine 40 mg PO DAILY PRN PRN 11/09/24 [History] Leflunomide 20 mg PO DAILY 11/09/24 [History] Metoprolol Succinate 50 mg [Toprol Xl 50 MG] 50 mg PO BID 11/09/24 [History] Promethazine HCl 25 mg PO DAILY PRN PRN 11/09/24 [History] Tizanidine HCl 4 mg PO DAILY 11/09/24 [History] Tramadol HCl 50 mg [Ultram 50 mg] 50 mg PO DAILY PRN PRN 11/09/24 [History] Hx Tetanus, Diphtheria Vaccination/Date Given: No Hx Influenza Vaccination/Date Given: No Hx Pneumococcal Vaccination/Date Given: Yes Travel Risk - International Travel Have you traveled outside of the country in past 3 weeks: No - Emerging Infectious Disease Are you exhibiting symptoms associated with any current EIDs: Yes Symptoms: Abdominal Pain, Diarrhea, Vomitting - Review of Systems Constitutional: No Symptoms Eyes: No Symptoms Ears, Nose, & Throat: No Symptoms Respiratory: No Symptoms Cardiac: Chest Pain Abdominal/Gastrointestinal: No Symptoms Genitourinary Symptoms: No Symptoms Musculoskeletal: No Symptoms Skin: No Symptoms Neurological: No Symptoms Psychological: No Symptoms Endocrine: No Symptoms Hematologic/Lymphatic: No Symptoms Immunological/Allergic: No Symptoms All Other Systems: Reviewed and Negative - Past Medical History Pertinent Past Medical History: Yes Neurological History: Migraines, Other ENT History: No Pertinent History Cardiac History: Congestive Heart Failure, High Cholesterol, Hypertension Respiratory History: COPD, Pulmonary Embolism Endocrine Medical History: Diabetes Type II Musculoskeletal History: Arthritis GI Medical History: Gallbladder Disease History: No Pertinent History Psycho-Social History: Anxiety, Depression Female Reproductive Disorders: Abnormal Uterine Bleeding, Fibroids Other Medical History: 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 3 abscesses drained in last 1.5 years. 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 - Social History Smoking Status: Never smoker Exposure to second hand smoke: No Drug Use: none Patient Lives Alone: No - Social Determinants of Health Will the patient participate in the screening: Yes Do you worry about a steady place to live?: No In the past 12 months,have you had to go without utilities?: No Transportation Issues: No Has anyone in your support network made you feel unsafe?: No Have you or anyone in your house had to go w/o enough food: No - Nursing Vital Signs Nursing Vital Signs: Initial Vital Signs Temperature 97.7 F 11/15/24 15:34 Pulse Rate 102 H 11/15/24 15:34 Respiratory Rate 20 11/15/24 15:34 Blood Pressure 121/71 11/15/24 15:34 O2 Sat by Pulse Oximetry 91 L 11/15/24 15:34 Pain Scale Pain Intensity 3 - Physical Exam General Appearance: mild distress, alert, anxiety, obese Eye Exam: PERRL/EOMI, eyes nml inspection Ears, Nose, Throat Exam: normal ENT inspection, moist mucous membranes Neck Exam: normal inspection, non-tender, supple, full range of motion Respiratory Exam: normal breath sounds, chest tenderness, lungs clear, airway intact, No respiratory distress Cardiovascular Exam: regular rate/rhythm, normal heart sounds, normal peripheral pulses Gastrointestinal/Abdomen Exam: soft, normal bowel sounds, No tenderness Pelvic Exam: not done Rectal Exam: not done Back Exam: normal inspection, normal range of motion, No CVA tenderness, No vertebral tenderness Extremity Exam: normal inspection, normal range of motion, pelvis stable Neurologic Exam: alert, oriented x 3, cooperative, 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 QTc is 454. No acute ischemia on today's twelve-lead EKG. Improved when compared to twelve-lead EKG dated 11/10/2024) Ordered Tests: Active Orders 24 hr Category Date Time Status EKG-ER Only STAT Care 11/15/24 15:57 Active EKG-ER Only STAT Care 11/15/24 18:02 Active IV Insertion STAT Care 11/15/24 15:57 Active Pulse Oximetry (ED) STAT Care 11/15/24 15:57 Active CHEST 1 VIEW (PORTABLE) Stat Exams 11/15/24 15:58 Completed BLOOD CULTURE Stat Lab 11/15/24 16:15 Received CBC W DIFF Stat Lab 11/15/24 16:15 Completed CMP Stat Lab 11/15/24 16:15 Completed Lactic Acid Stat Lab 11/15/24 16:30 Completed MAGNESIUM Stat Lab 11/15/24 16:15 Completed MONO SCREEN Stat Lab 11/15/24 16:15 Completed NT PRO BNPII Stat Lab 11/15/24 16:15 Completed TROPONIN Q4H Lab 11/15/24 16:15 Completed TROPONIN Q4H Lab 11/15/24 18:05 Completed TROPONIN Q4H Lab 11/16/24 00:00 Ordered Medication Summary Discontinued Medications Generic Name Dose Route Start Last Admin Trade Name Freq PRN Reason Stop Dose Admin Magnesium Oxide 400 mg 11/15/24 19:01 11/15/24 19:05 Magnesium Oxide 400 Mg Tablet PO 11/15/24 19:02 400 mg STAT ONE Administration Magnesium Oxide Confirm 11/15/24 19:03 Magnesium Oxide 400 Mg Tablet Administered 11/15/24 19:04 Dose 400 mg .ROUTE .STK-MED ONE Potassium Chloride 20 meq 11/15/24 17:49 11/15/24 17:56 Potassium Chloride Tab 10 Meq Tab PO 11/15/24 17:50 20 meq STAT ONE Administration Potassium Chloride Confirm 11/15/24 17:53 Potassium Chloride Tab 10 Meq Tab Administered 11/15/24 17:54 Dose 20 meq .ROUTE .STK-MED ONE Lab/Rad Data: Laboratory Result Diagrams 11/15/24 16:15 11/15/24 16:15 Laboratory Results 11/15/24 11/15/24 11/15/24 Range/Units 18:05 16:30 16:15 WBC (3.98-10.04) x10^3/uL RBC (3.93-5.22) x10^6/uL Hgb (11.2-15.7) g/dL Hct (34.1-44.9) % MCV (79.4-94.8) fL MCH (25.6-32.2) pg MCHC (32.2-35.5) g/dL RDW (11.7-14.4) % Plt Count (182-369) x10^3/uL MPV (9.4-12.3) fL Gran % (34.0-71.1) % Immature Gran % (Auto) (0.001-0.429) % Nucleat RBC Rel Count (0.00-0.2) % Eos # (Auto) (0.04-0.36) x10^3/uL Immature Gran # (Auto) (0.001-0.031) x10^3u/L Absolute Lymphs (auto) (1.18-3.74) x10^3/uL Absolute Monos (auto) (0.24-0.86) x10^3/uL Absolute Nucleated RBC (0.00-0.012) x10^3u/L Lymphocytes % (19.3-51.7) % Monocytes % (4.7-12.5) % Eosinophils % (0.7-5.8) % Basophils % (0.1-1.2) % Absolute Granulocytes (1.56-6.13) x10^3/uL Basophils # (0.01-0.08) x10^3/uL Sodium (135-145) mmol/L Potassium (3.5-5.1) mmol/L Chloride (98-107) mmol/L Carbon Dioxide (22-30) mmol/L Anion Gap (5-15) MEQ/L BUN (7-17) mg/dL Creatinine (0.52-1.04) mg/dL Estimated GFR ML/MIN Glucose (74-106) mg/dL Lactic Acid 1.7 (0.4-2.0) Calcium (8.4-10.2) mg/dL Magnesium (1.6-2.3) mg/dL Total Bilirubin (0.2-1.3) mg/dL AST (14-36) U/L ALT (0-35) U/L Alkaline Phosphatase (38-126) U/L Troponin I < 0.012 (0.000-0.033) ng/mL NT-Pro-B Natriuret Pep (<300) pg/mL Serum Total Protein (6.3-8.2) g/dL Albumin (3.5-5.0) g/dL Monoscreen (NEGATIVE) Influenza Type A Ag NEGATIVE (NEGATIVE) Influenza Type B Ag NEGATIVE (NEGATIVE) RSV (PCR) NEGATIVE (NEGATIVE) SARS-CoV-2 (PCR) NEGATIVE (NEGATIVE) 11/15/24 11/15/24 11/15/24 Range/Units 16:15 16:15 16:15 WBC (3.98-10.04) x10^3/uL RBC (3.93-5.22) x10^6/uL Hgb (11.2-15.7) g/dL Hct (34.1-44.9) % MCV (79.4-94.8) fL MCH (25.6-32.2) pg MCHC (32.2-35.5) g/dL RDW (11.7-14.4) % Plt Count (182-369) x10^3/uL MPV (9.4-12.3) fL Gran % (34.0-71.1) % Immature Gran % (Auto) (0.001-0.429) % Nucleat RBC Rel Count (0.00-0.2) % Eos # (Auto) (0.04-0.36) x10^3/uL Immature Gran # (Auto) (0.001-0.031) x10^3u/L Absolute Lymphs (auto) (1.18-3.74) x10^3/uL Absolute Monos (auto) (0.24-0.86) x10^3/uL Absolute Nucleated RBC (0.00-0.012) x10^3u/L Lymphocytes % (19.3-51.7) % Monocytes % (4.7-12.5) % Eosinophils % (0.7-5.8) % Basophils % (0.1-1.2) % Absolute Granulocytes (1.56-6.13) x10^3/uL Basophils # (0.01-0.08) x10^3/uL Sodium 139 (135-145) mmol/L Potassium 3.1 L (3.5-5.1) mmol/L Chloride 94 L (98-107) mmol/L Carbon Dioxide 33 H (22-30) mmol/L Anion Gap 15.1 H (5-15) MEQ/L BUN 14 (7-17) mg/dL Creatinine 0.96 (0.52-1.04) mg/dL Estimated GFR 67.3 ML/MIN Glucose 190 H (74-106) mg/dL Lactic Acid (0.4-2.0) Calcium 9.5 (8.4-10.2) mg/dL Magnesium 1.2 L (1.6-2.3) mg/dL Total Bilirubin 0.50 (0.2-1.3) mg/dL AST 39 H (14-36) U/L ALT 29 (0-35) U/L Alkaline Phosphatase 154 H (38-126) U/L Troponin I < 0.012 (0.000-0.033) ng/mL NT-Pro-B Natriuret Pep 379 (<300) pg/mL Serum Total Protein 6.0 L (6.3-8.2) g/dL Albumin 3.3 L (3.5-5.0) g/dL Monoscreen NEGATIVE (NEGATIVE) Influenza Type A Ag (NEGATIVE) Influenza Type B Ag (NEGATIVE) RSV (PCR) (NEGATIVE) SARS-CoV-2 (PCR) (NEGATIVE) 11/15/24 Range/Units 16:15 WBC 9.0 (3.98-10.04) x10^3/uL RBC 4.88 (3.93-5.22) x10^6/uL Hgb 13.5 (11.2-15.7) g/dL Hct 41.1 (34.1-44.9) % MCV 84.2 (79.4-94.8) fL MCH 27.7 (25.6-32.2) pg MCHC 32.8 (32.2-35.5) g/dL RDW 13.5 (11.7-14.4) % Plt Count 321 (182-369) x10^3/uL MPV 11.2 (9.4-12.3) fL Gran % 64.8 (34.0-71.1) % Immature Gran % (Auto) 3.1 H (0.001-0.429) % Nucleat RBC Rel Count 0.0 (0.00-0.2) % Eos # (Auto) 0.12 (0.04-0.36) x10^3/uL Immature Gran # (Auto) 0.28 H (0.001-0.031) x10^3u/L Absolute Lymphs (auto) 1.93 (1.18-3.74) x10^3/uL Absolute Monos (auto) 0.74 (0.24-0.86) x10^3/uL Absolute Nucleated RBC 0.00 (0.00-0.012) x10^3u/L Lymphocytes % 21.5 (19.3-51.7) % Monocytes % 8.2 (4.7-12.5) % Eosinophils % 1.3 (0.7-5.8) % Basophils % 1.1 (0.1-1.2) % Absolute Granulocytes 5.81 (1.56-6.13) x10^3/uL Basophils # 0.10 H (0.01-0.08) x10^3/uL Sodium (135-145) mmol/L Potassium (3.5-5.1) mmol/L Chloride (98-107) mmol/L Carbon Dioxide (22-30) mmol/L Anion Gap (5-15) MEQ/L BUN (7-17) mg/dL Creatinine (0.52-1.04) mg/dL Estimated GFR ML/MIN Glucose (74-106) mg/dL Lactic Acid (0.4-2.0) Calcium (8.4-10.2) mg/dL Magnesium (1.6-2.3) mg/dL Total Bilirubin (0.2-1.3) mg/dL AST (14-36) U/L ALT (0-35) U/L Alkaline Phosphatase (38-126) U/L Troponin I (0.000-0.033) ng/mL NT-Pro-B Natriuret Pep (<300) pg/mL Serum Total Protein (6.3-8.2) g/dL Albumin (3.5-5.0) g/dL Monoscreen (NEGATIVE) Influenza Type A Ag (NEGATIVE) Influenza Type B Ag (NEGATIVE) RSV (PCR) (NEGATIVE) SARS-CoV-2 (PCR) (NEGATIVE) - Progress Progress: re-examined Air Movement: good Progress Note: 11/15/24 16:17 My medical decision making and the assignment of moderate complexity of this patient's medical issue today is based on review of the patient's past medical history, review the patient's medication list, review the patient drug allergy list, history present illness and physical findings on examination. The workup in this patient includes placement of intravenous line, twelve-lead EKG, CBC, CMP, magnesium level, troponin level, BNP, D-dimer, chest x-ray. Will provide her with 4 baby aspirin. Differential diagnosis includes is not limited to pulmonary embolus, myocardial infarction, electrolyte abnormalities, arrhythmia, anxiety about health 11/15/24 16:22 I interpreted the preliminary report of the patient's chest x-ray. I see no acute cardiopulmonary process. The final chest x-ray report was interpreted by the radiologist and I reviewed the impression. The impression states no acute process. 11/15/24 19:20 I reexamined the patient. She no longer has a radiation of pain into her neck and left shoulder. She has very minimal, nonspecific chest pain at this time. Her vital signs are stable. I interpreted the repeat troponin which is normal. I interpreted the second twelve-lead EKG that was performed on 11/15/2024 at 1812. Rate is 102 at sinus tachycardia. There are PVCs present. QTc is 448. There is no evidence of any acute ischemia. 11/15/24 19:26 I did not order a D-dimer in this patient secondary to the fact she is on Eliquis 5 mg twice a day. I think her risk of a pulmonary embolus or DVT is very low Blood Culture(s) Obtained: Yes Antibiotics given: No Counseled pt/family regarding: lab results, diagnosis, rad results Medical Desision Making - Independent Historian Additional History obtained from: Spouse - Diagnostic Testing Diagnostic test were ordered, analyzed, and reviewed by me: Yes Radiological Interpretation: Interpreted by me, Reviewed by me, Teleradiologist Report - Risk of complications Low Risk: Low risk of morbidity from additional dx testing or treatment - Departure Departure Disposition: Home Clinical Impression: Nonspecific chest pain, Hypokalemia, Hypomagnesemia Condition: Stable Critical Care Time: No Referrals: DUNG GEORGE DO [Primary Care Provider, [facility]] - Follow up/PCP as directed Additional Instructions: Continue your medications as prescribed. Call your primary care provider tomorrow, 11/16/2024, to make arrangements for follow-up appointment to be seen in the next 3 to 5 days. Return to the emergency department if symptoms recur. Prescriptions: Potassium Chloride Tab* [Klor Con] 10 meq PO BID #5 tab Magnesium Oxide 400 mg [Mag-Ox 400] 400 mg PO DAILY #4 tablet
[2024-11-15 15:52] VITALS: TEMP 97.7
--- NOTE | 2024-11-15 16:19 | XRAY ---
Indication: Chest pain. Wheezing. Comparison: March 30, 2024 Portable chest unchanged again demonstrating minimal bilateral subsegmental atelectasis/scarring, small left base calcified granuloma, and right hemidiaphragm elevation. Heart not enlarged. Bony thorax intact again with osteopenia and mild degenerative changes. Impression: Continued nonacute chest with chronic features.
[2024-11-15 17:13] LABS: Absolute Neutrophil Ct (ANC) 5.81 x10^3/uL (1.56-6.13); BASOPHIL % 1.1 % (0.1-1.2); Eosinophil % 1.3 % (0.7-5.8); Eosinophil (Absolute #) 0.12 x10^3/uL (0.04-0.36); Hematocrit 41.1 % (34.1-44.9); Hemoglobin 13.5 g/dL (11.2-15.7); IMMATURE GRAN # 0.28 x10^3u/L (0.001-0.031); IMMATURE GRAN % 3.1 % (0.001-0.429); Lymphocyte (Absolute #) 1.93 x10^3/uL (1.18-3.74); Lymphocytes % 21.5 % (19.3-51.7); Mean Cell Volume 84.2 fL (79.4-94.8); Mean Corpuscular Hemoglobin 27.7 pg (25.6-32.2); Mean Corpuscular Hgb Concent. 32.8 g/dL (32.2-35.5); Mean Platelet Volume 11.2 fL (9.4-12.3); Monocyte (Absolute #) 0.74 x10^3/uL (0.24-0.86); Monocytes % 8.2 % (4.7-12.5); Neutrophil % 64.8 % (34.0-71.1); Platelet Count 321 x10^3/uL (182-369); Red Blood Count 4.88 x10^6/uL (3.93-5.22); Red Cell Distribution Width 13.5 % (11.7-14.4)
[2024-11-15 17:30] LABS: ALBUMIN 3.3 g/dL (3.5-5.0); ANION GAP 15.1 MEQ/L (5-15); BILIRUBIN,TOTAL 0.5 mg/dL (0.2-1.3); Calcium 9.5 mg/dL (8.4-10.2); Creatinine 1 0.96 mg/dL (0.52-1.04); EST GLOMERULAR FILTRATION RATE 67.3 ML/MIN; MAGNESIUM 1.2 mg/dL (1.6-2.3); Potassium 3.1 mmol/L (3.5-5.1)
[2024-11-15 17:41] LABS: NT PRO BNPII 379 pg/mL (<300); TROPONIN < 0.012 ng/mL (0.000-0.033)
[2024-11-15 17:51] LABS: INFLUENZA A NEGATIVE (NEGATIVE); INFLUENZA B NEGATIVE (NEGATIVE); RESPIRATORY SYNCTIAL VIRUS NEGATIVE (NEGATIVE); SARS-CoV-2 Xpert Express NEGATIVE (NEGATIVE)
[2024-11-15] MEDS ORDERED: Klor Con ONE (17:53)
[2024-11-15] MEDS: Klor Con PO ONE (17:56)
[2024-11-15 18:25] VITALS: O2SAT 95
[2024-11-15] MEDS ORDERED: MAG-OX 400 ONE (19:03)
[2024-11-15] MEDS: MAG-OX 400 PO ONE (19:05)
[2024-11-15 19:09] VITALS: RESP 17
[2024-11-15 20:04] VITALS: BP 126/67; PULSE 96
== END 2024-11-15 19:54 | disposition home or self-care (01) ==
LOC: ED 15:27
DX: R07.9 Chest pain, unspecified (principal); E87.6 Hypokalemia; E83.42 Hypomagnesemia; Z79.01 Long term (current) use of anticoagulants; Z79.4 Long term (current) use of insulin; Z79.891 Long term (current) use of opiate analgesic; Z79.899 Other long term (current) drug therapy
CPT/HCPCS: 0241U; 36415; 71045; 80053; 83605; 83735; 83880; 84484; 85025; 86308; 87040; 93005; 93041; 94760; 99285; 99284; A9270-GY